=== PATIENT | female | born 1955 | race Caucasian/White ===

== ENCOUNTER → 2016-10-29 17:02 | Emergency (ER) | payer OTHER ==
[~2016-10-29 17:02] MED LIST: ALPR0.25 PO; ALPR1TAB3 PO; CALA180T PO; CEFU1TAB20 PO; CEPH-460 PO; CLIN1CAP6 PO; DABI150 PO; DOXY100C PO; FURO20TA PO; LANTUS2P SQ; LANTUSP SQ; LEVO175T2 PO; MAXZ PO; METF500T PO; MUPI2OIN TOPICAL; OMEP20TA PO; PRAD150C PO; PRAV20 PO; PRAV20TA2 PO; ST J81CH PO; TRIA1TAB5 PO
== END | disposition left against medical advice (07) ==
LOC: NED 17:02
DX: Z03.89 Encounter for observation for other suspected diseases and conditions ruled out (principal)
CPT/HCPCS: 99281

== ENCOUNTER 2016-10-29 17:36 | Inpatient (IN) | payer OTHER ==
[~2016-10-29] VITALS: Ht 165.1 cm; Wt 99.4 kg
[~2016-10-29 17:36] MED LIST changes: -ALPR1TAB3 PO; -CEFU1TAB20 PO; -CEPH-460 PO; -DOXY100C PO; -FURO20TA PO; -LANTUS2P SQ; -METF500T PO; -MUPI2OIN TOPICAL; -OMEP20TA PO; -PRAD150C PO; -PRAV20TA2 PO; -TRIA1TAB5 PO
[2016-10-29 17:42] VITALS: BP 165/76; PULSE 73; RESP 16; TEMP 99; O2SAT 98
[2016-10-29] MEDS ORDERED: SODIUM CHLORIDE 0.9% FLUSH 5 ML FLUSH IVF PRN (18:15)
[2016-10-29] MEDS ORDERED: VANCOMYCIN INJ 1,400 MG in SODIUM CHLORID 0.9% 500 ML INJ 500 ML IV ONE (18:15)
[2016-10-29] MEDS ORDERED: FURO20TA PO (18:24)
[2016-10-29] MEDS ORDERED: ALPR1TAB3 PO (18:24)
[2016-10-29] MEDS ORDERED: LEVO175T2 PO (18:24)
[2016-10-29] MEDS ORDERED: TRIA1TAB5 PO (18:24)
[2016-10-29] MEDS ORDERED: METF500T PO (18:24)
[2016-10-29] MEDS ORDERED: PRAD150C PO (18:24)
[2016-10-29] MEDS ORDERED: PRAV20TA2 PO (18:24)
[2016-10-29] MEDS ORDERED: CEPH-460 PO (18:24)
[2016-10-29] MEDS ORDERED: OMEP20TA PO (18:24)
[2016-10-29] MEDS ORDERED: LANTUS2P SQ (18:24)
--- NOTE | 2016-10-29 18:26 | PD ---
HPI Chief Complaint: Skin Problem Time Seen by Provider: 17:57 Travel History International Travel<30 days: No Contact w/Intl Traveler<30days: No Traveled to known affect area: No History of Present Illness HPI Patient is a 61-year-old female who was sent to the emergency room by her research nurse, Dr. Mariposa Julio for admission to the hospital. Patient reports that she is a diabetic, reports that she has been dealing with the right-sided diabetic foot ulcer for the past 6 months. Patient reports that foot ulcer is on her right plantar region, reports that the ulceration has decreased in size but has not closed up completely. She reports that she has noticed increased redness and warmth from her foot to her knee since Friday night. Reports that she just completed a course of antibiotics (bactrim) for her cellulitis when symptoms began. Patient reports that she was started on Keflex for this new infection and did see her research nurse, Dr. Mariposa Julio today and was sent to the emergency room for admission to the hospital for failed outpatient treatment of cellulitis as well as for further evaluation and workup of her foot ulceration. Reports concern for possible infection to the plantar surface of her foot. Patient reports that she was told to come to the emergency room as she will need to be admitted and have an MRI of her foot. Reports that she was told that Dr. Lorenz's partner, Dr. Waite will be seeing patient while inpatient. Patient at this time denies fevers or chills. Patient denies nausea or vomiting. Patient is currently on Keflex for the lightest of her right foot as well as lower leg. Reports that tetanus is up-to-date. PFSH Past Medical History Hx Anticoagulant Therapy: Yes (PRADAXA) Atrial Fibrillation: Yes (AFIB/AFLUTTER) Blood Disorders: No Anxiety: Yes Depression: Yes Heart Rhythm Problems: Yes Cancer: No Cardiac Catheterization: Yes Cardiovascular Problems: Yes (HTN; TRIPLE BYPASS) High Cholesterol: Yes Chest Pain: Yes Congestive Heart Failure: No Cerebrovascular Accident: Yes (TIA 2015) Coronary Artery Disease: Yes Diabetes: Yes (TYPE 2 ) Diminished Hearing: No Endocrine: Yes Gastrointestinal Disorders: No GERD: Yes Glaucoma: Yes (PRE-GLAUCOMA) Genitourinary: Yes (UTI) Herniated Disk: Yes Hypertension: Yes Immune Disorder: No Implanted Vascular Access Dvce: No Musculoskeletal: Yes Neurologic: Yes (tiny brain tumor - benign,DIABETIC NEUROPATHY IN FEET) Psychiatric: Yes Reproductive: No Respiratory: No Immunizations Current: Yes Pneumonia: Yes Sleep Apnea: Yes (NO CPAP) Thyroid Disease: Yes (HYPOTHYROIDISM) Triglycerides - High: Yes Ulcer: Yes (DUODENAL A TEENAGER) Menopausal: Yes : 2 Para: 2 Past Surgical History Abdominal Surgery: Yes (UMBILICAL HERNIA REPAIR) Cardiac Surgery: Yes (CABG x 3: AGE 52) Coronary Artery Bypass Graft: Yes (TRIPLE BYPASS) Gynecologic Surgery: Yes (HYSTERECTOMY) Hysterectomy: Yes Tonsillectomy: Yes Other Surgery: Yes (HYSTERECTOMY.) Family History Family History: Negative Social History Alcohol Use: No Tobacco Use: No (QUIT: AGE 52) Substance Use: Yes (MARIJUANA "ONCE IN AWHILE") Allergies-Medications (Allergen,Severity, Reaction): Coded Allergies: Codeine (Verified Allergy, Mild, Nausea/Vomiting, 10/29/16) "I BREAK OUT IN A SWEAT AND VOMITING" Lortab (Verified Allergy, Mild, DIAPHORESIS AND NAUSEA, 10/29/16) TOLERATES PERCOCOT WELL Uncoded Allergies: melon (Allergy, Severe, Anaphylaxis, 10/29/16) Reported Meds & Prescriptions Reported Meds & Active Scripts Active Reported Furosemide 20 Mg Tab 20 Mg PO DAILY Pravastatin 20 Mg Tab 20 Mg PO HS Omeprazole 20 Mg Tab 20 Mg PO BID Triamterene-Hydrochlorothiazide 75-50 Mg Tab 1 Tab PO DAILY Pradaxa (Dabigatran) 150 Mg Cap 150 Mg PO BID Keflex (Cephalexin) 500 Mg Cap 500 Mg PO Q6H Metformin (Metformin HCl) 500 Mg Tab 500 Mg PO DAILY With a meal Lantus Inj (Insulin Glargine) 1,000 Unit/10 Ml Vial 68 Units SQ HS Alprazolam 1 Mg Tab 1 Mg PO Q6H PRN Levothyroxine (Levothyroxine Sodium) 175 Mcg Tab 175 Mcg PO DAILY Review of Systems General / Constitutional: No: Fever, Chills Eyes: No: Visual changes HENT: No: Headaches Cardiovascular: No: Chest Pain or Discomfort Respiratory: No: Shortness of Breath Gastrointestinal: No: Abdominal Pain Genitourinary: No: Dysuria Musculoskeletal: No: Pain Skin: Positive Rash (ulceration and cellulitis of right foot) Neurologic: No: Weakness Psychiatric: No: Depression Endocrine: No: Polydipsia Hematologic/Lymphatic: No: Easy Bruising Physical Exam Narrative GENERAL: No acute distress, nontoxic SKIN: Warm and dry. HEAD: Atraumatic. Normocephalic. EYES: Pupils equal and round. No scleral icterus. No injection or drainage. ENT: No nasal bleeding or discharge. Mucous membranes pink and moist. NECK: Trachea midline. No JVD. CARDIOVASCULAR: Regular rate and rhythm. No murmur appreciated. RESPIRATORY: No accessory muscle use. Clear to auscultation. Breath sounds equal bilaterally. GASTROINTESTINAL: Abdomen soft, non-tender, nondistended. Hepatic and splenic margins not palpable. MUSCULOSKELETAL: No obvious deformities. No clubbing. No cyanosis. Right lower extremity: Patient with pinpoint ulceration to her right plantar surface of foot. No drainage to area of ulceration. Patient with cellulitis to entire right foot with blotchy erythema and streaking up her leg. Pulses intact, neurovascularly intact. NEUROLOGICAL: Awake and alert. No obvious cranial nerve deficits. Motor grossly within normal limits. Normal speech. PSYCHIATRIC: Appropriate mood and affect; insight and judgment normal. Data Data Last Documented VS Vital Signs Date Time Temp Pulse Resp B/P Pulse Ox O2 Delivery O2 Flow Rate FiO2 10/29/16 17:42 99.0 73 16 165/76 98 Orders Complete Blood Count With Diff (10/29/16 18:07) Comprehensive Metabolic Panel (10/29/16 18:07) Prothrombin Time / Inr (Pt) (10/29/16 18:07) Act Partial Throm Time (Ptt) (10/29/16 18:07) Blood Culture (10/29/16 18:07) Iv Access Insert/Monitor (10/29/16 18:07) Sodium Chloride 0.9% Flush (Ns Flush) (10/29/16 18:15) Vancomycin Inj (Vancomycin Inj) (10/29/16 18:15) Foot, Complete ([id number]) (10/29/16 ) Ceftriaxone Inj (Rocephin Inj) (10/29/16 19:15) Labs Laboratory Tests Test 10/29/16 18:35 White Blood Count 8.0 TH/MM3 Red Blood Count 5.41 MIL/MM3 Hemoglobin 14.3 GM/DL Hematocrit 43.0 % Mean Corpuscular Volume 79.3 FL Mean Corpuscular Hemoglobin 26.4 PG Mean Corpuscular Hemoglobin 33.2 % Concent Red Cell Distribution Width 12.7 % Platelet Count 284 TH/MM3 Mean Platelet Volume 9.7 FL Neutrophils (%) (Auto) 63.5 % Lymphocytes (%) (Auto) 28.4 % Monocytes (%) (Auto) 5.4 % Eosinophils (%) (Auto) 1.9 % Basophils (%) (Auto) 0.8 % Neutrophils # (Auto) 5.0 TH/MM3 Lymphocytes # (Auto) 2.3 TH/MM3 Monocytes # (Auto) 0.4 TH/MM3 Eosinophils # (Auto) 0.2 TH/MM3 Basophils # (Auto) 0.1 TH/MM3 CBC Comment DIFF FINAL Differential Comment Prothrombin Time 11.0 SEC Prothromb Time International 1.0 RATIO Ratio Activated Partial 36.2 SEC Thromboplast Time Sodium Level 135 MEQ/L Potassium Level 3.2 MEQ/L Chloride Level 93 MEQ/L Carbon Dioxide Level 33.0 MEQ/L Anion Gap 9 MEQ/L Blood Urea Nitrogen 24 MG/DL Creatinine 1.40 MG/DL Estimat Glomerular Filtration 38 ML/MIN Rate Random Glucose 323 MG/DL Calcium Level 9.2 MG/DL Total Bilirubin 0.5 MG/DL Aspartate Amino Transf 21 U/L (AST/SGOT) Alanine Aminotransferase 30 U/L (ALT/SGPT) Alkaline Phosphatase 114 U/L Total Protein 7.8 GM/DL Albumin 3.3 GM/DL [facility] Medical Decision Making Medical Screen Exam Complete: Yes Emergency Medical Condition: Yes Interpretation(s) Vital Signs Date Time Temp Pulse Resp B/P Pulse Ox O2 Delivery O2 Flow Rate FiO2 10/29/16 17:42 99.0 73 16 165/76 98 Differential Diagnosis Osteomyelitis of the right foot, cellulitis, diabetic foot ulceration, Narrative Course Patient is a 61-year-old female who presents to emergency room with complaints of nonhealing diabetic foot ulceration to her right foot with cellulitis and streaking up her right leg. Symptoms have been ongoing for the past 6 months, reports that she has been on multiple antibiotics and has been nonweightbearing but reports no relief of symptoms at this time. Patient was sent to the emergency room by her research nurse for admission to the hospital for treatment of ulceration with cellulitis which has failed outpatient treatment. Ultimately, patient will be seen by Dr. Waite, 's partner and patient will need to be worked up for possible osteomyelitis of her right foot. CBC, BMP, foot ordered for further evaluation of symptoms. I did give patient a dose of IV antibiotics, plan to admission under [facility] CBC & BMP Diagram 10/29/16 18:35 xray of foot with 2 questionable lucencies in the first metatarsal shaft. Area of bony destruction cannot be ruled out Call made to Dr. Waite with podiatry as well as [place] for admission case reviewed with Dr Cross who accepts pt to service under Dr Navarro Diagnosis Primary Impression: Cellulitis of right lower extremity Additional Impression: Osteomyelitis Qualified Code: M86.171 - Acute osteomyelitis of right foot Admitting Information Admitting Physician Requests: Admit Alfreda Brennan DO Oct 29, 2016 18:26
[2016-10-29 18:49] LABS: BASOPHIL # 0.1 TH/MM3 (0-0.2); BASOPHIL % 0.8 % (0.0-2.0); EOSINOPHIL # 0.2 TH/MM3 (0-0.4); EOSINOPHIL % 1.9 % (0.0-4.0); HEMO FLAGS DIFF FINAL; LYMPH % 28.4 % (9.0-44.0); LYMPHOCYTE # 2.3 TH/MM3 (1.0-4.8); MEAN CELL VOLUME 79.3 FL (80.0-100.0); MEAN CORPUSCULAR HEMOGLOBIN 26.4 PG (27.0-34.0); MEAN CORPUSCULAR HGB CONC 33.2 % (32.0-36.0); MONO % 5.4 % (0.0-8.0); NEUT % 63.5 % (16.0-70.0); PLATELET COUNT 284 TH/MM3 (150-450); RED BLOOD COUNT 5.41 MIL/MM3 (4.00-5.30); RED CELL DISTRIBUTION WIDTH 12.7 % (11.6-17.2)
[2016-10-29 18:56] LABS: CHLORIDE 93 MEQ/L (98-107); POTASSIUM 3.2 MEQ/L (3.5-5.1); SODIUM (NA) 135 MEQ/L (136-145)
[2016-10-29 19:00] LABS: ANION GAP 9 MEQ/L (5-15)
[2016-10-29 19:01] LABS: APTT (PATIENT) 36.2 SEC (24.3-30.1); BLOOD UREA NITROGEN 24 MG/DL (7-18)
--- NOTE | 2016-10-29 19:02 | RADHPO ---
EXAM DATE/TIME: 10/29/2016 18:16 [facility] COMPARISON: No previous studies available for comparison. INDICATIONS: Right foot pain, swelling, and redness. MEDICAL HISTORY: Hypothyroidism. Hypertension. Gastroesophageal reflux disease. Glaucoma. Brain tumor. Diabetic neurop athy. TIA. Coronary artery disease. Anticoagulant therapy. Atrial fibrillation. Ulcer. Type 2 diabete s. Chronic back pain. SURGICAL HISTORY: CABG Hysterectomy. Cardiac catheterization. Umbilical hernia repair. Lumbar discectomy. ENCOUNTER: Initial ACUITY: 2 days PAIN SCORE: 7/10 LOCATION: Right dorsal foot. FINDINGS: There is a hallux valgus deformity. There is a focal lucency seen in the mid first metatarsal shaft m easuring 0.9 cm in greatest dimension. This appears to have a fairly narrow zone of transition. The re is also a more subtle lucency seen at the proximal medial aspect of the first metatarsal. Periost eal reaction is not clearly seen. The patient does have chronic hypertrophic change at the dorsal as pect of the mid foot. Calcaneal spurs are seen at the Achilles and plantar aponeurosis attachment si nella. There is soft tissue swelling seen throughout the foot. CONCLUSION: 1. Two questionable lucencies in the first metatarsal shaft. Areas of bony destruction cannot be ru led out. 2. Prominent soft tissue swelling throughout the foot. 3. Chronic hypertrophic change at the dorsal mid foot, at the posterior calcaneus and a hallux valgu s deformity present. Woody Herr MD on October 29, 2016 at 18:36 Board Certified Radiologist. This report was verified electronically.
[2016-10-29 19:03] LABS: ALT (GPT) 30 U/L (10-53); AST (GOT) 21 U/L (15-37)
[2016-10-29 19:04] LABS: GLOMERULAR FILTRATION RATE 38 ML/MIN (>89)
[2016-10-29 19:05] LABS: TOTAL BILIRUBIN ADULT 0.5 MG/DL (0.2-1.0)
[2016-10-29 19:06] LABS: ALKALINE PHOSPHATASE 114 U/L (45-117)
[2016-10-29] MEDS ORDERED: cefTRIAXone INJ 2,000 MG in SODIUM CHLORIDE 0.9% INJ 100 ML IV ONE (19:15)
[2016-10-29 19:20] VITALS: BP 143/72; PULSE 88; RESP 18; O2SAT 99
[2016-10-29] MEDS ORDERED: ACETAMINOPHEN 325 MG TAB PO PRN (20:30)
[2016-10-29] MEDS ORDERED: ONDANSETRON HCL 4 MG/2 ML VIAL IVP PRN (20:30)
[2016-10-29] MEDS ORDERED: BISACODYL 10 MG SUPP PR PRN (20:30)
[2016-10-29] MEDS ORDERED: SODIUM CHLORIDE 0.9% FLUSH 5 ML FLUSH FLUSH PRN (20:30)
[2016-10-29] MEDS ORDERED: VANCOMYCIN INJ 1,000 MG in SODIUM CHLOR 0.9% 250 ML INJ 250 ML IV SCH (20:30)
[2016-10-29] MEDS ORDERED: NALOXONE HCL 0.4 MG/ML AMP IV PRN (20:30)
[2016-10-29] MEDS ORDERED: MAGNESIUM HYDROXIDE SUSP 30 ML CUP PO PRN (20:30)
[2016-10-29] MEDS ORDERED: SENNOSIDES 8.6 MG TAB PO PRN (20:30)
[2016-10-29] MEDS ORDERED: HEPARIN SODIUM - SQ 10,000 UNITS/ML VIAL SQ SCH (20:30)
[2016-10-29] MEDS ORDERED: Vancomycin Consult Pharmacy 1 EA OTHER SCH (21:00)
[2016-10-29] MEDS: SODIUM CHLORIDE 0.9% FLUSH 5 ML FLUSH FLUSH SCH (21:00)
[2016-10-29] MEDS: INSULIN DETEMIR 100 UNITS/ML VIAL SQ SCH (21:08)
[2016-10-29] MEDS: PANTOPRAZOLE SOD 20 MG DELAYED RELEASE TAB PO SCH (21:08)
[2016-10-29 21:15] VITALS: BP 146/72; PULSE 78; RESP 16; O2SAT 99
[2016-10-29] MEDS: DABIGATRAN ETEXILATE 150 MG CAP PO SCH (21:26)
[2016-10-29] MEDS: PRAVASTATIN SOD 20 MG TAB PO SCH (21:26)
[2016-10-29] MEDS: INSULIN ASPART SUPPLEMENTAL SCALE SQ SCH (21:27)
[2016-10-29] MEDS: CEFEPIME INJ 1,000 MG in SODIUM CHLORIDE 0.9% INJ 100 ML IV SCH (23:03)
[2016-10-29 23:45] VITALS: BP 151/79; PULSE 67; RESP 20; TEMP 97.6; O2SAT 98
[2016-10-30] MEDS: ALPRAZolam 1 MG TAB PO PRN ×2 (00:33→21:54)
[2016-10-30 05:37] LABS: AUTOMATED NEUTROPHIL # 3.8 TH/MM3 (1.8-7.7); BASOPHIL # 0.1 TH/MM3 (0-0.2); BASOPHIL % 0.7 % (0.0-2.0); EOSINOPHIL # 0.2 TH/MM3 (0-0.4); EOSINOPHIL % 2.8 % (0.0-4.0); HEMATOCRIT 39.5 % (35.0-46.0); HEMO FLAGS DIFF FINAL; LYMPH % 37.1 % (9.0-44.0); LYMPHOCYTE # 2.7 TH/MM3 (1.0-4.8); MEAN CORPUSCULAR HGB CONC 33.3 % (32.0-36.0); MONO % 6.7 % (0.0-8.0); NEUT % 52.7 % (16.0-70.0); PLATELET COUNT 251 TH/MM3 (150-450); RED BLOOD COUNT 4.87 MIL/MM3 (4.00-5.30); WHITE BLOOD COUNT 7.3 TH/MM3 (4.0-11.0)
[2016-10-30 06:24] LABS: BICARBONATE 33.4 MEQ/L (21.0-32.0)
[2016-10-30] MEDS: LEVOTHYROXINE SODIUM 75 MCG TAB PO SCH (06:51)
[2016-10-30] MEDS: LEVOTHYROXINE SODIUM 100 MCG TAB PO SCH (06:51)
[2016-10-30] MEDS: INSULIN ASPART SUPPLEMENTAL SCALE SQ SCH ×4 (06:54→21:41)
[2016-10-30 07:07] LABS: POTASSIUM 2.5 MEQ/L (3.5-5.1)
[2016-10-30 08:00] VITALS: BP 112/69; PULSE 69; RESP 17; TEMP 97.4; O2SAT 96
[2016-10-30] MEDS: CEFEPIME INJ 1,000 MG in SODIUM CHLORIDE 0.9% INJ 100 ML IV SCH ×2 (08:21→21:34)
[2016-10-30] MEDS: SODIUM CHLORIDE 0.9% FLUSH 5 ML FLUSH FLUSH SCH ×2 (08:21→21:33)
[2016-10-30] MEDS: PANTOPRAZOLE SOD 20 MG DELAYED RELEASE TAB PO SCH ×2 (08:22→21:37)
[2016-10-30] MEDS: DABIGATRAN ETEXILATE 150 MG CAP PO SCH ×2 (08:22→21:35)
[2016-10-30] MEDS: TRIAMTERENE/HCTZ 37.5 MG/25 MG TAB PO SCH (08:23)
[2016-10-30] MEDS: POTASSIUM CHLOR 20 MEQ PREMIX 100 ML IV SCH ×4 (08:23→17:07)
[2016-10-30] MEDS: FUROSEMIDE 20 MG TAB PO SCH (08:23)
[2016-10-30] MEDS ORDERED: TRIAMTERENE/HCTZ 75 MG/50 MG TAB PO SCH (09:00)
[2016-10-30 12:00] VITALS: BP 110/75; PULSE 71; RESP 18; TEMP 97.2; O2SAT 95
--- NOTE | 2016-10-30 12:31 | MH ---
cc: EDUARDO ALVAREZ MD DATE OF ADMISSION: 10/29/2016 CHIEF COMPLAINT Redness of the right lower extremity and foot. HISTORY OF PRESENT ILLNESS This is a 61-year female with past medical and surgical history significant for atrial fibrillation on anticoagulation, anxiety, depression, hypertension, triple bypass surgery, hyperlipidemia, TIA, coronary artery disease status post three-vessel bypass surgery, diabetes mellitus type 2, history of GERD, history of pre glaucoma, history of herniated disc, history of hypertension, history of diabetic neuropathy, history of tiny brain tumor which was benign, history of hypothyroidism, history of duodenal ulcer in the past, history of umbilical hernia repair, three-vessel bypass surgery, hysterectomy and tonsillectomy, who came to the ER at [facility] complaining of redness of the left lower extremity as well as the foot area. She has seen a medicaid eligibility specialist, Dr. Tramaine Julio. She reports that she is diabetic and she has been dealing with right-sided diabetic foot ulcer for the past 6 months. The patient reports that the foot ulcer is on her right plantar region, reports that the ulceration is decreased in size but has not closed up completely. She reports that she has noticed increased redness and warmth from her foot to her knees since Friday night. She reports that she has was started on Keflex but this is not improving and she failed outpatient therapy for cellulitis of the right foot and right lower leg. She also needs elevation and workup of her foot ulceration, concern of possible infection. She is being admitted to have an MRI of the foot. Denies any fever or chills. Denies any nausea or vomiting, diarrhea, constipation. Denies any black stool or blood in the stool. Other than that nothing significant. PAST MEDICAL/SURGICAL HISTORY As dictated above. SOCIAL HISTORY She smoked about 10 years, one pack a day, quit 9 years ago. Denies alcohol abuse. Marijuana off and on. FAMILY HISTORY Nothing significant. ALLERGIES 1. CODEINE. 2. LORTAB. MEDICATIONS 1. Furosemide 20 mg p.o. daily. 2. Pravastatin 20 mg p.o. h.s. 3. Omeprazole 20 mg p.o. b.i.d. 4. Triamterene/hydrochlorothiazide 75/50, one p.o. daily. 5. Pradaxa 150 mg twice a day. 6. Metformin 500 mg p.o. daily. 7. Lantus 68 units subcutaneous h.s. 8. Alprazolam 1 mg p.o. q.6h. 9. Levothyroxine 175 mcg p.o. daily. REVIEW OF SYSTEMS Positive for ulceration and cellulitis of the right foot, feeling weak and tired. All other review of systems is negative. PHYSICAL EXAMINATION GENERAL: This is a 61-year-old female lying on the bed, not in acute distress. VITAL SIGNS: Temperature 97.4, heart rate 69, respirations 17, blood pressure 112/69. O2 saturation 96% on room air. HEENT: Normocephalic, atraumatic. EOMI. PERRL. Oral mucosa moist. NECK: Supple. CARDIOVASCULAR: Regular rate and rhythm. LUNGS: Clear to auscultation bilaterally. ABDOMEN: Soft, nontender. Bowel sounds audible. EXTREMITIES: No cyanosis. No clubbing. There is a pinpoint ulceration to the right plantar surface of the foot. No drainage of the ulceration. Erythema of the right foot as well as blotchy erythema on the upper legs which is improving by demarcation. SKIN: Erythema of the right lower extremity plus the right foot with foot ulceration. The right lower extremity erythromycin is improving. NEUROLOGIC: Awake, alert, oriented x4. No focal deficits. PSYCHIATRIC: The patient is cooperative. Mood and affect are normal. LABORATORY CBC is unremarkable except for RBC count was 5.41, now 4.87 which is normal. BMP is unremarkable except for potassium 2.5 low, BUN was 24 now 22, creatinine was 1.40, now 1.10, glucose random was 323, now 213, magnesium level 1.9, albumin 3.3 low. PT 11.0, INR 1.0, APTT 36.2. Blood cultures x2 done show no growth. IMAGING Foot x-ray was done and shows two questionable lucencies in the first metatarsal shaft area. Areas of bony destruction cannot be ruled out. Prominent soft tissue swelling throughout the foot. Chronic hypertrophic changes at the dorsal midfoot and at the posterior calcaneus and a hallux valgus deformity present. ASSESSMENT AND PLAN 1. This is a 61-year-old female who came to the ER diagnosed with cellulitis of the right foot with foot ulceration. The patient is on vancomycin IV and she got IV Rocephin. The patient is also on antibiotic cefepime one gram IV q.12h. Podiatry is consulted already. I will consult the infectious disease doctor. Check MRA of the right foot. Further recommendations per patient's progress. 2. Diabetes mellitus. ADA 1800 calorie diet. NovoLog low-dose sliding scale. Check blood sugars at h.s. Continue the home medication. 3. Hypokalemia. Will replace potassium. Magnesium level was normal. 4. History of hyperlipidemia. Continue with pravastatin 20 mg p.o. daily. 5. History of GERD. Protonix 40 mg p.o. daily. 6. History of atrial fibrillation. The patient is on Pradaxa 150 mg twice a day. 7. History of anxiety. Continue with Xanax 1 mg p.o. q.6h. p.r.n. anxiety. 8. History of hypothyroidism. Continue with levothyroxine 175 mcg p.o. daily. 9. DVT prophylaxis. The patient is on Pradaxa. 10. GI prophylaxis. Protonix 40 mg p.o. daily. 11.We are going to manage the patient on a daily basis and make recommendations on a daily basis. Eduardo Alvarez MD [facility]/[place] /11:19 AM /11:56 AM
[2016-10-30] MEDS ORDERED: GADODIAMIDE PF 287 MG/ML 20 ML VIAL (for RAD MRI) IV ONE (16:00)
--- NOTE | 2016-10-30 16:53 | RADHPO ---
EXAM DATE/TIME: 10/30/2016 15:53 [facility] COMPARISON: No previous studies available for comparison. INDICATIONS : Osteomyelitis. Cellulitis. CONTRAST: 19 cc Omniscan (gadodiamide) IV MEDICAL HISTORY : Hypertension. Diabetes. A-fib. TIA. SURGICAL HISTORY : CABG Umbilical hernia repair. Tonsillectomy. Discectomy. ENCOUNTER: Subsequent ACUITY: 3 day PAIN SCORE: 5/10 LOCATION: Right foot TECHNIQUE: Multiplanar, multisequence MRI examination was performed without contrast and after the intravenous a dministration of gadolinium. FINDINGS: No marrow edema or marrow enhancement is identified to suggest osteomyelitis. There is a hallux valgu s deformity. Moderate osteoarthritis present at the first metatarsophalangeal joint. There is edemato us changes in the soft tissues of the foot, especially at the dorsum of the foot characteristic of a mild cellulitis. No abnormal enhancing fluid collection seen to suggest abscess. Plantar fascial and Achilles insertions appear intact. There is some thickening of the distal Achilles tendon. CONCLUSION: 1. No evidence for osteomyelitis. 2. Cellulitis predominantly on the dorsum of the foot. No discrete abscess. 3. Hallux valgus deformity with osteoarthritis in the right foot is at the first MTP. Luiz Kumar MD on October 30, 2016 at 16:44 Board Certified Radiologist. This report was verified electronically.
[2016-10-30] MEDS: VANCOMYCIN INJ 1,700 MG in SODIUM CHLORID 0.9% 500 ML INJ 500 ML IV SCH (17:01)
--- NOTE | 2016-10-30 19:41 | MB ---
cc: KAREN WOO DATE OF CONSULTATION: 10/30/2016 CHIEF COMPLAINT Right foot ulceration and cellulitis. HISTORY OF PRESENT ILLNESS Ms. Gaspar is a 61-year-old female patient well-known to my associate Dr. Tramaine Julio. Dr. Julio is away and asked me to see this patient in her absence, but she is the one who stressed that the patient go into the emergency department for evaluation. The patient has had a right sub met 1 diabetic foot ulcer for six months. One month ago she had a cellulitic infection which was treated with oral antibiotics but again had another flare approximately four days ago. Her primary care doctor prescribed Keflex and after two days of Keflex she saw no improvement and that is when she was directed to come into the emergency department for MRI and further workup. The patient denies any nausea, vomiting, fever, headaches or chills at this time. PAST MEDICAL HISTORY 1. Hyperlipidemia. 2. Hypertension. 3. Depression. 4. Anxiety. 5. TIA. 6. Coronary artery disease. 7. Diabetes mellitus. 8. History of GERD. 9. History of glaucoma. 10. Herniated disc. 11. History of tiny brain tumor which was benign. 12. History of hypothyroidism. 13. Duodenal abscess. PAST SURGICAL HISTORY 1. Hysterectomy. 2. Tonsillectomy. 3. Three-vessel bypass repair surgery. 4. Hernia surgery. SOCIAL HISTORY The patient smoked about ten years one pack a day, quit nine years ago. Denies alcohol or drug abuse. Lives at home with family. FAMILY HISTORY Noncontributory. ALLERGIES CODEINE, LORTAB. MEDICATIONS Please see list. VITAL SIGNS Temperature is 97.2 with a T-max of 99, pulse rate 71, respiratory rate 18, blood pressure 110/75, pulse oximetry 95% O2 on room air. LABORATORY DATA White count is 7.3 down from 8.0, hemoglobin 13.1, hematocrit 39.5, platelets 251. INR 1.0. Sodium 138, potassium 2.5, chloride 98, carbon dioxide 33.4, BUN 22, glucose 213. Blood cultures are negative x1 day. IMAGING X-rays are negative for any gas. No soft tissue or cortical erosion. MRI is negative for any signs of osteomyelitis. PHYSICAL EXAMINATION The patient has diminished but palpable pulses. Cap fill time less than 3 seconds. Gross sensation is severely diminished. There is some trace erythema to the dorsal aspect of the foot and medial ankle but mostly resolved. There is a sub met 1 ulcer 0.5 x 0.5 x 0, no deep probing, hypertrophic borders, no active drainage, no malodor. ASSESSMENT AND PLAN 1. Right foot stage 2 ulceration with resolving cellulitis. - The patient failed outpatient antibiotic therapy however it was only two days of Keflex. - Infectious Disease has been consulted and will evaluate the patient. I will defer to them for any antibiotic suggestions unfortunately though cultures are not obtained on this visit. - The patient does not require any surgical intervention at this time. I doubt that Infectious Disease will require a PICC line, however I will again defer to them. - The patient has spoken to Dr. Julio before about being non-weightbearing but has difficulty navigating crutches and lives in a mobile home so she feels she cannot use anything bulky. I will order a physical therapy evaluation for tomorrow to try crutches again. 6. Pending physical therapy evaluation and Infectious Disease recommendations, the patient is okay for discharge from my standpoint. Thank you very much for this consultation. Karen WILSON/BJ[facility] /6:54 PM /7:11 PM MTDJerrod
[2016-10-30 20:00] VITALS: BP 120/72; PULSE 54; RESP 20; TEMP 97.2; O2SAT 100
[2016-10-30] MEDS: PRAVASTATIN SOD 20 MG TAB PO SCH (21:37)
[2016-10-30] MEDS: INSULIN DETEMIR 100 UNITS/ML VIAL SQ SCH (21:39)
--- NOTE | 2016-10-30 21:43 | PD.CONS ---
History of Present Illness Service Infectious disease Consult Requested By Dr Navarro Reason for Consult RLE cellulitis Primary Care Physician Damien Hamilton DO Diagnoses: (1) Cellulitis of right lower extremity (2) Diabetes mellitus History of Present Illness Patient with known h/o Diabetes has a ulcer on plantar surface of rt toe for about 6 months and she has been following with Podiatry. Few weeks ago she had cellulitis involving right leg and came to ER and was given PO antibiotics and it resolved howver few days ago it started to flare up again and so was given Keflex but did not improve and so came to hospital and started on IV antibiotics - improved- had MRI today. Review of Systems Constitutional: DENIES: Fever, Chills Endocrine: DENIES: Polydipsia Eyes: DENIES: Blurred vision, Diplopia Ears, nose, mouth, throat: DENIES: Tinnitus, Hearing loss Respiratory: DENIES: Cough, Sputum production, Shortness of breath Cardiovascular: DENIES: Chest pain, Syncope Gastrointestinal: DENIES: Abdominal pain, Diarrhea Musculoskeletal: DENIES: Muscle aches, Joint Swelling Integumentary: COMPLAINS OF: Abnormal pigmentation, DENIES: Rash Hematologic/lymphatic: DENIES: Bruising Neurologic: COMPLAINS OF: Paresthesias, DENIES: Abnormal gait, Localized weakness Psychiatric: DENIES: Anxiety, Confusion Past Family Social History Allergies: Coded Allergies: Codeine (Verified Allergy, Mild, Nausea/Vomiting, 10/29/16) "I BREAK OUT IN A SWEAT AND VOMITING" Lortab (Verified Allergy, Mild, DIAPHORESIS AND NAUSEA, 10/29/16) TOLERATES PERCOCOT WELL Uncoded Allergies: melon (Allergy, Severe, Anaphylaxis, 10/29/16) Past Medical History Type 2 diabetes Hypertension Hyperlipidemia Neuropathy CAD Anxiety / Depression Past Surgical History Hysterectomy CABG Reported Medications IV Vancomycin and Cefepime Social History Ex smoker Occasional [place] use Physical Exam Vital Signs Vital Signs Date Time Temp Pulse Resp B/P Pulse Ox O2 Delivery O2 Flow Rate FiO2 10/30/16 20:00 97.2 54 20 120/72 100 Automatic Cuff 10/30/16 12:00 97.2 71 18 110/75 95 10/30/16 08:00 97.4 69 17 112/69 96 10/29/16 23:45 97.6 67 20 151/79 98 Physical Exam GENERAL: This is a chronically ill patient, in no apparent distress. SKIN: Right foot erythema on dorsal surface and some patchiness on leg. Small ulcer with callus on rt big toe HEAD: Atraumatic. Normocephalic. No temporal or scalp tenderness. EYES: Pupils equal round and reactive. Extraocular motions intact. No scleral icterus. No injection or drainage. ENT: Nose without bleeding, purulent drainage or septal hematoma. Throat without erythema, tonsillar hypertrophy or exudate. Uvula midline. Airway patent. NECK: Trachea midline. No JVD or lymphadenopathy. Supple, nontender, no meningeal signs. CARDIOVASCULAR: Regular rate and rhythm without murmurs, gallops, or rubs. RESPIRATORY: Clear to auscultation. Breath sounds equal bilaterally. No wheezes , rales, or rhonchi. GASTROINTESTINAL: Abdomen soft, non-tender, nondistended. No hepato-splenomegaly , or palpable masses. No guarding. MUSCULOSKELETAL: Extremities without clubbing, cyanosis, or edema. No joint tenderness, effusion, or edema noted. No calf tenderness. Negative Homans sign bilaterally. NEUROLOGICAL: Awake and alert. Cranial nerves II through XII intact. Motor grossly within normal limits. Five out of 5 muscle strength in all muscle groups. Normal speech.Peripheral neuropathy Laboratory Laboratory Tests Test 10/30/16 10/30/16 04:40 05:40 White Blood Count 7.3 Red Blood Count 4.87 Hemoglobin 13.1 Hematocrit 39.5 Mean Corpuscular Volume 81.0 Mean Corpuscular Hemoglobin 27.0 Mean Corpuscular Hemoglobin 33.3 Concent Red Cell Distribution Width 13.0 Platelet Count 251 Mean Platelet Volume 10.1 Neutrophils (%) (Auto) 52.7 Lymphocytes (%) (Auto) 37.1 Monocytes (%) (Auto) 6.7 Eosinophils (%) (Auto) 2.8 Basophils (%) (Auto) 0.7 Neutrophils # (Auto) 3.8 Lymphocytes # (Auto) 2.7 Monocytes # (Auto) 0.5 Eosinophils # (Auto) 0.2 Basophils # (Auto) 0.1 CBC Comment DIFF FINAL Differential Comment Sodium Level 138 Potassium Level 2.5 Chloride Level 98 Carbon Dioxide Level 33.4 Anion Gap 7 Blood Urea Nitrogen 22 Creatinine 1.10 Estimat Glomerular Filtration 51 Rate Random Glucose 213 Calcium Level 8.6 Magnesium Level 1.9 Date/Time Procedure Status Source Growth 10/29/16 18:40 Aerobic Blood Culture - Preliminary Resulted Blood Peripheral NO GROWTH IN 1 DAY 10/29/16 18:40 Anaerobic Blood Culture - Preliminary Resulted Blood Peripheral NO GROWTH IN 1 DAY Result Diagram: 10/30/1643910/30/16439 Assessment and Plan Problem List: (1) Cellulitis of right lower extremity Status: Acute Plan: Follow blood cultures MRI reviewed- No osteomyelitis Continue IV Vancomycin and Cefepime for another 24-48hrs and then can change to PO Cefuroxime and Doxy for 2 weeks (2) Diabetes mellitus Status: Chronic Problem Qualifiers (1) Diabetes mellitus: Nora Hastings MD Oct 30, 2016 21:43
[2016-10-30] MEDS: MUPIROCIN 2% OINT 22 GM TUBE TOPICAL SCH (21:54)
[2016-10-30] MEDS ORDERED: VANCOMYCIN INJ 1,250 MG in SODIUM CHLOR 0.9% 250 ML INJ 250 ML IV SCH (22:00)
[2016-10-31] VITALS: BP 126/61; PULSE 54; RESP 20; TEMP 96.9; O2SAT 98
[2016-10-31] MEDS: LEVOTHYROXINE SODIUM 75 MCG TAB PO SCH (05:00)
[2016-10-31] MEDS: LEVOTHYROXINE SODIUM 100 MCG TAB PO SCH (05:00)
[2016-10-31 05:26] VITALS: PULSE 59; RESP 16; TEMP 97.5; O2SAT 99
[2016-10-31 05:58] LABS: AUTOMATED NEUTROPHIL # 3.2 TH/MM3 (1.8-7.7); BASOPHIL # 0.1 TH/MM3 (0-0.2); BASOPHIL % 1.2 % (0.0-2.0); EOSINOPHIL # 0.2 TH/MM3 (0-0.4); EOSINOPHIL % 3.3 % (0.0-4.0); HEMATOCRIT 37.8 % (35.0-46.0); HEMO FLAGS DIFF FINAL; LYMPH % 37.5 % (9.0-44.0); LYMPHOCYTE # 2.3 TH/MM3 (1.0-4.8); MEAN CELL VOLUME 79.3 FL (80.0-100.0); MEAN CORPUSCULAR HEMOGLOBIN 26.8 PG (27.0-34.0); MEAN CORPUSCULAR HGB CONC 33.8 % (32.0-36.0); MONO % 6.3 % (0.0-8.0); NEUT % 51.7 % (16.0-70.0); PLATELET COUNT 237 TH/MM3 (150-450); RED BLOOD COUNT 4.77 MIL/MM3 (4.00-5.30); RED CELL DISTRIBUTION WIDTH 12.7 % (11.6-17.2); WHITE BLOOD COUNT 6.2 TH/MM3 (4.0-11.0)
[2016-10-31 06:07] LABS: CHLORIDE 101 MEQ/L (98-107); POTASSIUM 3.2 MEQ/L (3.5-5.1); SODIUM (NA) 139 MEQ/L (136-145)
[2016-10-31 06:16] LABS: ALT (GPT) 25 U/L (10-53); ANION GAP 8 MEQ/L (5-15); AST (GOT) 15 U/L (15-37); BICARBONATE 29.8 MEQ/L (21.0-32.0); BLOOD UREA NITROGEN 15 MG/DL (7-18); GLOMERULAR FILTRATION RATE 61 ML/MIN (>89); TOTAL BILIRUBIN ADULT 0.4 MG/DL (0.2-1.0)
[2016-10-31] MEDS: INSULIN ASPART SUPPLEMENTAL SCALE SQ SCH ×4 (06:37→20:46)
[2016-10-31 06:42] LABS: ALKALINE PHOSPHATASE 82 U/L (45-117)
--- NOTE | 2016-10-31 07:00 | HHI.PR ---
Subjective History of Present Illness Patient feel better right foot and lower extremity redness/ swelling and pain better d/w CHEKO [place] at bed side. MRI of right foot shows no osteomylitis.. Low Potassium will replace. Review of Systems Constitutional Constitutional: Fatigue, Weakness Integumentary Skin Remarks redness swelling and pain right lower extremity getting better. Vitals/Results Intake & Output 10/30/16 10/30/16 10/31/16 15:00 23:00 07:00 Intake Total 1160 ml Balance 1160 ml Intake Oral 960 ml IV Total 200 ml # Voids 2 1 # Bowel Movements 0 Vital Signs Vital Signs Date Time Temp Pulse Resp B/P Pulse Ox O2 Delivery O2 Flow Rate FiO2 10/31/16 00:00 96.9 54 20 126/61 98 Manual Cuff/Auscultation 10/30/16 20:00 97.2 54 20 120/72 100 Automatic Cuff 10/30/16 12:00 97.2 71 18 110/75 95 10/30/16 08:00 97.4 69 17 112/69 96 CBC/BMP: 10/31/16 0455 10/31/16 0455 Lab Results Laboratory Tests Test 10/31/16 04:55 White Blood Count 6.2 TH/MM3 Red Blood Count 4.77 MIL/MM3 Hemoglobin 12.8 GM/DL Hematocrit 37.8 % Mean Corpuscular Volume 79.3 FL Mean Corpuscular Hemoglobin 26.8 PG Mean Corpuscular Hemoglobin 33.8 % Concent Red Cell Distribution Width 12.7 % Platelet Count 237 TH/MM3 Mean Platelet Volume 9.9 FL Neutrophils (%) (Auto) 51.7 % Lymphocytes (%) (Auto) 37.5 % Monocytes (%) (Auto) 6.3 % Eosinophils (%) (Auto) 3.3 % Basophils (%) (Auto) 1.2 % Neutrophils # (Auto) 3.2 TH/MM3 Lymphocytes # (Auto) 2.3 TH/MM3 Monocytes # (Auto) 0.4 TH/MM3 Eosinophils # (Auto) 0.2 TH/MM3 Basophils # (Auto) 0.1 TH/MM3 CBC Comment DIFF FINAL Differential Comment Sodium Level 139 MEQ/L Potassium Level 3.2 MEQ/L Chloride Level 101 MEQ/L Carbon Dioxide Level 29.8 MEQ/L Anion Gap 8 MEQ/L Blood Urea Nitrogen 15 MG/DL Creatinine 0.94 MG/DL Estimat Glomerular Filtration 61 ML/MIN Rate Random Glucose 240 MG/DL Calcium Level 8.4 MG/DL Total Bilirubin 0.4 MG/DL Aspartate Amino Transf 15 U/L (AST/SGOT) Alanine Aminotransferase 25 U/L (ALT/SGPT) Alkaline Phosphatase 82 U/L Total Protein 6.0 GM/DL Albumin 2.5 GM/DL Physical Exam General General Appearance: Well Developed, Well Nourished, No Acute Distress, Comfortable Eyes Eye Exam: Pupils Equal, Pupils Reactive, Sclera White, Extraocular Movement Intact Throat Throat Exam: Oral Mucosa [place] & Moist, Oral Pharynx Normal Neck Neck Exam: Neck Supple, Trachea Midline Pulmonary Resp Exam: Clear Bilaterally, Breath Sounds Equal, No Distress Cardiology CV Exam: Regular, Normal Sinus Rhythm Gastrointestinal/Abdomen GI Exam: Soft, Non-Tender, Bowel Sounds Present Musculoskeletal MS Exam: Normal Tone Integumentary Skin Remarks Erythema /swelling and tenderness right lower extremity...improving. Extremeties Extremities Exam: No Edema Neurologic Neuro Exam: Alert, Awake, Oriented, Speech Clear, Moving All Extremities, No Focal Deficits Psychiatric Psych Exam: Appropriate Responses VTE Prophylaxis VTE Remarks Pradexa. PUD Prophylasis PUD Prophylaxis: Protonix Assessment/Plan Assessment/Plan ASSESSMENT AND PLAN 1. This is a 61-year-old female who came to the ER diagnosed with cellulitis of the right foot with foot ulceration. The patient is on vancomycin IV and she got IV Rocephin. The patient is also on antibiotic cefepime one gram IV q.12h. Podiatry input noted . infectious disease input noted. Check MRI of the right foot. ..shows no osteomylitis. Further recommendations per patient's progress. 2. Diabetes mellitus. ADA 1800 calorie diet. NovoLog low-dose sliding scale. Check blood sugars at h.s. Continue the home medication. 3. Hypokalemia. Will replace potassium. Magnesium level was normal. 4. History of hyperlipidemia. Continue with pravastatin 20 mg p.o. daily. 5. History of GERD. Protonix 40 mg p.o. daily. 6. History of atrial fibrillation. The patient is on Pradaxa 150 mg twice a day. 7. History of anxiety. Continue with Xanax 1 mg p.o. q.6h. p.r.n. anxiety. 8. History of hypothyroidism. Continue with levothyroxine 175 mcg p.o. daily. 9. DVT prophylaxis. The patient is on Pradaxa. 10. GI prophylaxis. Protonix 40 mg p.o. daily. 11.We are going to manage the patient on a daily basis and make recommendations on a daily basis. Discussed Condition with: Patient Eduardo Navarro MD Oct 31, 2016 07:00
[2016-10-31] MEDS ORDERED: POTASSIUM CHLORIDE 10 MEQ CONTROLLED RELEASE TAB PO ONE (07:15)
[2016-10-31 08:00] VITALS: BP 153/71; PULSE 58; RESP 18; TEMP 96.8; O2SAT 98
[2016-10-31] MEDS: PANTOPRAZOLE SOD 20 MG DELAYED RELEASE TAB PO SCH ×2 (08:42→20:42)
[2016-10-31] MEDS: FUROSEMIDE 20 MG TAB PO SCH (08:42)
[2016-10-31] MEDS: DABIGATRAN ETEXILATE 150 MG CAP PO SCH ×2 (08:42→20:42)
[2016-10-31] MEDS: CEFEPIME INJ 1,000 MG in SODIUM CHLORIDE 0.9% INJ 100 ML IV SCH ×2 (08:43→20:43)
[2016-10-31] MEDS: SODIUM CHLORIDE 0.9% FLUSH 5 ML FLUSH FLUSH SCH ×2 (08:44→20:42)
[2016-10-31] MEDS: MUPIROCIN 2% OINT 22 GM TUBE TOPICAL SCH ×2 (08:44→20:47)
[2016-10-31] MEDS: TRIAMTERENE/HCTZ 37.5 MG/25 MG TAB PO SCH (08:44)
[2016-10-31 12:00] VITALS: BP 139/78; PULSE 56; RESP 18; TEMP 97.2; O2SAT 100
[2016-10-31] MEDS: VANCOMYCIN INJ 1,700 MG in SODIUM CHLORID 0.9% 500 ML INJ 500 ML IV SCH (15:55)
[2016-10-31 16:00] VITALS: BP 140/72; PULSE 58; RESP 20; TEMP 97.2; O2SAT 100
[2016-10-31 20:00] VITALS: BP 149/65; PULSE 63; RESP 16; TEMP 97.6; O2SAT 98
[2016-10-31] MEDS: PRAVASTATIN SOD 20 MG TAB PO SCH (20:42)
[2016-10-31] MEDS: INSULIN DETEMIR 100 UNITS/ML VIAL SQ SCH (20:45)
[2016-10-31] MEDS: ALPRAZolam 1 MG TAB PO PRN (20:48)
[2016-11-01] VITALS: BP 124/62; PULSE 60; RESP 16; TEMP 97.8; O2SAT 96
[2016-11-01 04:00] VITALS: BP 125/64; PULSE 59; RESP 16; TEMP 97.5; O2SAT 99
[2016-11-01] MEDS: LEVOTHYROXINE SODIUM 100 MCG TAB PO SCH (05:18)
[2016-11-01] MEDS: LEVOTHYROXINE SODIUM 75 MCG TAB PO SCH (05:18)
[2016-11-01 05:52] LABS: AUTOMATED NEUTROPHIL # 4.9 TH/MM3 (1.8-7.7); BASOPHIL # 0.1 TH/MM3 (0-0.2); BASOPHIL % 1.2 % (0.0-2.0); EOSINOPHIL # 0.2 TH/MM3 (0-0.4); EOSINOPHIL % 2.4 % (0.0-4.0); HEMATOCRIT 41.7 % (35.0-46.0); HEMO FLAGS DIFF FINAL; LYMPH % 30.4 % (9.0-44.0); LYMPHOCYTE # 2.4 TH/MM3 (1.0-4.8); MEAN CORPUSCULAR HEMOGLOBIN 26.5 PG (27.0-34.0); MEAN CORPUSCULAR HGB CONC 33.5 % (32.0-36.0); MONO % 5.3 % (0.0-8.0); NEUT % 60.7 % (16.0-70.0); PLATELET COUNT 284 TH/MM3 (150-450); RED BLOOD COUNT 5.27 MIL/MM3 (4.00-5.30); RED CELL DISTRIBUTION WIDTH 12.6 % (11.6-17.2); WHITE BLOOD COUNT 8.1 TH/MM3 (4.0-11.0)
[2016-11-01 06:08] LABS: CHLORIDE 101 MEQ/L (98-107); POTASSIUM 3.8 MEQ/L (3.5-5.1); SODIUM (NA) 139 MEQ/L (136-145)
[2016-11-01 06:12] LABS: ANION GAP 7 MEQ/L (5-15); BICARBONATE 30.8 MEQ/L (21.0-32.0); BLOOD UREA NITROGEN 14 MG/DL (7-18)
[2016-11-01 06:15] LABS: ALT (GPT) 27 U/L (10-53); AST (GOT) 14 U/L (15-37); GLOMERULAR FILTRATION RATE 65 ML/MIN (>89)
[2016-11-01 06:17] LABS: TOTAL BILIRUBIN ADULT 0.3 MG/DL (0.2-1.0)
[2016-11-01 06:18] LABS: ALKALINE PHOSPHATASE 92 U/L (45-117)
[2016-11-01] MEDS: INSULIN ASPART SUPPLEMENTAL SCALE SQ SCH ×4 (06:18→21:23)
[2016-11-01 08:00] VITALS: BP 100/82; PULSE 56; RESP 16; TEMP 97; O2SAT 95
--- NOTE | 2016-11-01 08:21 | HHI.PR ---
Subjective History of Present Illness Patient feel better right foot and lower extremity redness/ swelling and pain much better d/w CHEKO Paritda at bed side. MRI of right foot shows no osteomylitis.. Low Potassium resolved.... constipation start colace. Review of Systems Constitutional Constitutional: Fatigue, Weakness Integumentary Skin Remarks redness swelling and pain right lower extremity getting better. Vitals/Results Intake & Output 10/31/16 10/31/16 11/01/16 15:00 23:00 07:00 Intake Total 1050 ml 1480 ml 600 ml Balance 1050 ml 1480 ml 600 ml Intake Oral 1050 ml 1480 ml 600 ml # Voids 4 4 3 # Bowel Movements 0 0 0 Vital Signs Vital Signs Date Time Temp Pulse Resp B/P Pulse Ox O2 Delivery O2 Flow Rate FiO2 11/01/16 04:00 97.5 59 16 125/64 99 11/01/16 00:00 97.8 60 16 124/62 96 10/31/16 20:00 97.6 63 16 149/65 98 10/31/16 16:00 97.2 58 20 140/72 100 10/31/16 12:00 97.2 56 18 139/78 100 CBC/BMP: 11/01/16 0517 11/01/16 0517 Lab Results Laboratory Tests Test 11/01/16 05:17 White Blood Count 8.1 TH/MM3 Red Blood Count 5.27 MIL/MM3 Hemoglobin 14.0 GM/DL Hematocrit 41.7 % Mean Corpuscular Volume 79.0 FL Mean Corpuscular Hemoglobin 26.5 PG Mean Corpuscular Hemoglobin 33.5 % Concent Red Cell Distribution Width 12.6 % Platelet Count 284 TH/MM3 Mean Platelet Volume 9.7 FL Neutrophils (%) (Auto) 60.7 % Lymphocytes (%) (Auto) 30.4 % Monocytes (%) (Auto) 5.3 % Eosinophils (%) (Auto) 2.4 % Basophils (%) (Auto) 1.2 % Neutrophils # (Auto) 4.9 TH/MM3 Lymphocytes # (Auto) 2.4 TH/MM3 Monocytes # (Auto) 0.4 TH/MM3 Eosinophils # (Auto) 0.2 TH/MM3 Basophils # (Auto) 0.1 TH/MM3 CBC Comment DIFF FINAL Differential Comment Sodium Level 139 MEQ/L Potassium Level 3.8 MEQ/L Chloride Level 101 MEQ/L Carbon Dioxide Level 30.8 MEQ/L Anion Gap 7 MEQ/L Blood Urea Nitrogen 14 MG/DL Creatinine 0.89 MG/DL Estimat Glomerular Filtration 65 ML/MIN Rate Random Glucose 201 MG/DL Calcium Level 9.1 MG/DL Total Bilirubin 0.3 MG/DL Aspartate Amino Transf 14 U/L (AST/SGOT) Alanine Aminotransferase 27 U/L (ALT/SGPT) Alkaline Phosphatase 92 U/L Total Protein 6.6 GM/DL Albumin 2.7 GM/DL Physical Exam General General Appearance: Well Developed, Well Nourished, No Acute Distress, Comfortable Eyes Eye Exam: Pupils Equal, Pupils Reactive, Sclera White, Extraocular Movement Intact Throat Throat Exam: Oral Mucosa [place] & Moist, Oral Pharynx Normal Neck Neck Exam: Neck Supple, Trachea Midline Pulmonary Resp Exam: Clear Bilaterally, Breath Sounds Equal, No Distress Cardiology CV Exam: Regular, Normal Sinus Rhythm Gastrointestinal/Abdomen GI Exam: Soft, Non-Tender, Bowel Sounds Present Musculoskeletal MS Exam: Normal Tone Integumentary Skin Remarks Erythema /swelling and tenderness right lower extremity...improving. Extremeties Extremities Exam: No Edema Neurologic Neuro Exam: Alert, Awake, Oriented, Speech Clear, Moving All Extremities, No Focal Deficits Psychiatric Psych Exam: Appropriate Responses VTE Prophylaxis VTE Remarks Pradexa. PUD Prophylasis PUD Prophylaxis: Protonix Assessment/Plan Assessment/Plan ASSESSMENT AND PLAN 1. This is a 61-year-old female who came to the ER diagnosed with cellulitis of the right foot with foot ulceration. The patient is on vancomycin IV and she got IV Rocephin. The patient is also on antibiotic cefepime one gram IV q.12h. Podiatry input noted . infectious disease input noted. Check MRI of the right foot. ..shows no osteomylitis. Further recommendations per patient's progress. 2. Diabetes mellitus. ADA 1800 calorie diet. NovoLog low-dose sliding scale. Check blood sugars at h.s. Continue the home medication. 3. Hypokalemia. Will replace potassium. Magnesium level was normal. 4. History of hyperlipidemia. Continue with pravastatin 20 mg p.o. daily. 5. History of GERD. Protonix 40 mg p.o. daily. 6. History of atrial fibrillation. The patient is on Pradaxa 150 mg twice a day. 7. History of anxiety. Continue with Xanax 1 mg p.o. q.6h. p.r.n. anxiety. 8. History of hypothyroidism. Continue with levothyroxine 175 mcg p.o. daily. 9. DVT prophylaxis. The patient is on Pradaxa. 10. GI prophylaxis. Protonix 40 mg p.o. daily. 11. Constipation start colace. DC Plan tomorrow. We are going to manage the patient on a daily basis and make recommendations on a daily basis. Discussed Condition with: Patient Eduardo Navarro MD Nov 01, 2016 08:21
[2016-11-01] MEDS: CEFEPIME INJ 1,000 MG in SODIUM CHLORIDE 0.9% INJ 100 ML IV SCH ×2 (08:23→21:22)
[2016-11-01] MEDS: PANTOPRAZOLE SOD 20 MG DELAYED RELEASE TAB PO SCH ×2 (08:23→21:22)
[2016-11-01] MEDS: TRIAMTERENE/HCTZ 37.5 MG/25 MG TAB PO SCH (08:23)
[2016-11-01] MEDS: FUROSEMIDE 20 MG TAB PO SCH (08:23)
[2016-11-01] MEDS: DABIGATRAN ETEXILATE 150 MG CAP PO SCH ×2 (08:23→21:22)
[2016-11-01] MEDS: SODIUM CHLORIDE 0.9% FLUSH 5 ML FLUSH FLUSH SCH ×2 (08:24→21:21)
[2016-11-01] MEDS: MUPIROCIN 2% OINT 22 GM TUBE TOPICAL SCH ×2 (08:24→21:29)
[2016-11-01] MEDS: DOCUSATE SODIUM 100 MG CAP PO SCH ×2 (09:45→21:22)
--- NOTE | 2016-11-01 09:55 | HHI.IDPN ---
Subjective Subjective Remarks Rt leg with some swelling - redness improving No fever Antibiotics IV Vancomycin and Cefepime Lines Peripheral IV line Past Medical History Type 2 diabetes Hypertension Hyperlipidemia Neuropathy CAD Anxiety / Depression Past Surgical History Hysterectomy CABG Allergies: Coded Allergies: Codeine (Verified Allergy, Mild, Nausea/Vomiting, 10/29/16) "I BREAK OUT IN A SWEAT AND VOMITING" Lortab (Verified Allergy, Mild, DIAPHORESIS AND NAUSEA, 10/29/16) TOLERATES PERCOCOT WELL Uncoded Allergies: melon (Allergy, Severe, Anaphylaxis, 10/29/16) Review of Systems Constitutional Constitutional Remarks No fever chills Objective . Vital Signs Date Time Temp Pulse Resp B/P Pulse Ox O2 Delivery O2 Flow Rate FiO2 11/01/16 04:00 97.5 59 16 125/64 99 11/01/16 00:00 97.8 60 16 124/62 96 10/31/16 20:00 97.6 63 16 149/65 98 10/31/16 16:00 97.2 58 20 140/72 100 10/31/16 12:00 97.2 56 18 139/78 100 10/31/16 10/31/16 11/01/16 15:00 23:00 07:00 Intake Total 1050 ml 1480 ml 600 ml Balance 1050 ml 1480 ml 600 ml Intake Oral 1050 ml 1480 ml 600 ml # Voids 4 4 3 # Bowel Movements 0 0 0 . Laboratory Tests Test 10/31/16 11/01/16 04:55 05:17 White Blood Count 6.2 TH/MM3 8.1 TH/MM3 Red Blood Count 4.77 MIL/MM3 5.27 MIL/MM3 Hemoglobin 12.8 GM/DL 14.0 GM/DL Hematocrit 37.8 % 41.7 % Mean Corpuscular Volume 79.3 FL 79.0 FL Mean Corpuscular Hemoglobin 26.8 PG 26.5 PG Mean Corpuscular Hemoglobin 33.8 % 33.5 % Concent Red Cell Distribution Width 12.7 % 12.6 % Platelet Count 237 TH/MM3 284 TH/MM3 Mean Platelet Volume 9.9 FL 9.7 FL Neutrophils (%) (Auto) 51.7 % 60.7 % Lymphocytes (%) (Auto) 37.5 % 30.4 % Monocytes (%) (Auto) 6.3 % 5.3 % Eosinophils (%) (Auto) 3.3 % 2.4 % Basophils (%) (Auto) 1.2 % 1.2 % Neutrophils # (Auto) 3.2 TH/MM3 4.9 TH/MM3 Lymphocytes # (Auto) 2.3 TH/MM3 2.4 TH/MM3 Monocytes # (Auto) 0.4 TH/MM3 0.4 TH/MM3 Eosinophils # (Auto) 0.2 TH/MM3 0.2 TH/MM3 Basophils # (Auto) 0.1 TH/MM3 0.1 TH/MM3 CBC Comment DIFF FINAL DIFF FINAL Differential Comment Laboratory Tests Test 10/31/16 11/01/16 04:55 05:17 Sodium Level 139 MEQ/L 139 MEQ/L Potassium Level 3.2 MEQ/L 3.8 MEQ/L Chloride Level 101 MEQ/L 101 MEQ/L Carbon Dioxide Level 29.8 MEQ/L 30.8 MEQ/L Anion Gap 8 MEQ/L 7 MEQ/L Blood Urea Nitrogen 15 MG/DL 14 MG/DL Creatinine 0.94 MG/DL 0.89 MG/DL Estimat Glomerular Filtration 61 ML/MIN 65 ML/MIN Rate Random Glucose 240 MG/DL 201 MG/DL Calcium Level 8.4 MG/DL 9.1 MG/DL Total Bilirubin 0.4 MG/DL 0.3 MG/DL Aspartate Amino Transf 15 U/L 14 U/L (AST/SGOT) Alanine Aminotransferase 25 U/L 27 U/L (ALT/SGPT) Alkaline Phosphatase 82 U/L 92 U/L Total Protein 6.0 GM/DL 6.6 GM/DL Albumin 2.5 GM/DL 2.7 GM/DL Microbiology Date/Time Procedure Status Source Growth 10/29/16 18:35 Aerobic Blood Culture - Preliminary Resulted Blood Peripheral NO GROWTH IN 2 DAYS 10/29/16 18:35 Anaerobic Blood Culture - Preliminary Resulted Blood Peripheral NO GROWTH IN 2 DAYS 10/29/16 18:40 Aerobic Blood Culture - Preliminary Resulted Blood Peripheral NO GROWTH IN 2 DAYS 10/29/16 18:40 Anaerobic Blood Culture - Preliminary Resulted Blood Peripheral NO GROWTH IN 2 DAYS Physical Exam GENERAL: This is a chronically ill patient, in no apparent distress. SKIN: Right foot erythema on dorsal surface near resolved and some patchiness on leg also improving . Small ulcer with callus on rt big toe with less drainage HEAD: Atraumatic. Normocephalic. No temporal or scalp tenderness. EYES: Pupils equal round and reactive. Extraocular motions intact. No scleral icterus. No injection or drainage. ENT: Nose without bleeding, purulent drainage or septal hematoma. Throat without erythema, tonsillar hypertrophy or exudate. Uvula midline. Airway patent. NECK: Trachea midline. No JVD or lymphadenopathy. Supple, nontender, no meningeal signs. CARDIOVASCULAR: Regular rate and rhythm without murmurs, gallops, or rubs. RESPIRATORY: Clear to auscultation. Breath sounds equal bilaterally. No wheezes , rales, or rhonchi. GASTROINTESTINAL: Abdomen soft, non-tender, nondistended. No hepato-splenomegaly , or palpable masses. No guarding. MUSCULOSKELETAL: Extremities without clubbing, cyanosis, or edema. No joint tenderness, effusion, or edema noted. No calf tenderness. Negative Homans sign bilaterally. NEUROLOGICAL: Awake and alert. Cranial nerves II through XII intact. Motor grossly within normal limits. Five out of 5 muscle strength in all muscle groups. Normal speech.Peripheral neuropathy Assessment & Plan Diagnosis: (1) Cellulitis of right lower extremity Plan: Blood cultures- negative so far MRI reviewed- No osteomyelitis Continue IV Vancomycin and Cefepime for now Change to PO Cefuroxime 500 mg po bid with Doxy 100 mg po bid x 2 weeks on 11/02 (2) Diabetes mellitus Problem Qualifiers (1) Diabetes mellitus: Nora Hastings MD Nov 01, 2016 09:55
[2016-11-01 12:00] VITALS: BP 108/80; PULSE 60; RESP 16; TEMP 97.7; O2SAT 96
[2016-11-01 16:00] VITALS: BP 110/80; PULSE 62; RESP 16; TEMP 97.7; O2SAT 97
[2016-11-01] MEDS: VANCOMYCIN INJ 1,700 MG in SODIUM CHLORID 0.9% 500 ML INJ 500 ML IV SCH (16:31)
[2016-11-01 20:01] VITALS: BP 121/46; PULSE 60; RESP 18; TEMP 98.7; O2SAT 96
[2016-11-01] MEDS: INSULIN DETEMIR 100 UNITS/ML VIAL SQ SCH (21:22)
[2016-11-01] MEDS: PRAVASTATIN SOD 20 MG TAB PO SCH (21:23)
[2016-11-01] MEDS: ALPRAZolam 1 MG TAB PO PRN (21:28)
[2016-11-02] VITALS: BP 132/61; PULSE 60; RESP 16; TEMP 96.1; O2SAT 94
[2016-11-02] MEDS: LEVOTHYROXINE SODIUM 75 MCG TAB PO SCH (06:33)
[2016-11-02] MEDS: INSULIN ASPART SUPPLEMENTAL SCALE SQ SCH (06:33)
[2016-11-02] MEDS: LEVOTHYROXINE SODIUM 100 MCG TAB PO SCH (06:33)
[2016-11-02 06:44] LABS: BASOPHIL % 0.6 % (0.0-2.0); EOSINOPHIL # 0.2 TH/MM3 (0-0.4); HEMATOCRIT 37.2 % (35.0-46.0); HEMO FLAGS DIFF FINAL; LYMPH % 29.8 % (9.0-44.0); LYMPHOCYTE # 2.4 TH/MM3 (1.0-4.8); MEAN CELL VOLUME 79.6 FL (80.0-100.0); MEAN CORPUSCULAR HEMOGLOBIN 27.2 PG (27.0-34.0); MEAN CORPUSCULAR HGB CONC 34.2 % (32.0-36.0); MONO % 5.8 % (0.0-8.0); NEUT % 61.8 % (16.0-70.0); PLATELET COUNT 259 TH/MM3 (150-450); RED BLOOD COUNT 4.67 MIL/MM3 (4.00-5.30); RED CELL DISTRIBUTION WIDTH 12.9 % (11.6-17.2); WHITE BLOOD COUNT 8.1 TH/MM3 (4.0-11.0)
[2016-11-02 06:52] LABS: CHLORIDE 101 MEQ/L (98-107); POTASSIUM 3.5 MEQ/L (3.5-5.1); SODIUM (NA) 138 MEQ/L (136-145)
[2016-11-02 06:58] LABS: ANION GAP 6 MEQ/L (5-15); BICARBONATE 30.9 MEQ/L (21.0-32.0); BLOOD UREA NITROGEN 17 MG/DL (7-18)
[2016-11-02 07:01] LABS: ALT (GPT) 27 U/L (10-53); AST (GOT) 18 U/L (15-37); GLOMERULAR FILTRATION RATE 57 ML/MIN (>89)
[2016-11-02 07:03] LABS: TOTAL BILIRUBIN ADULT 0.3 MG/DL (0.2-1.0)
[2016-11-02 07:04] LABS: ALKALINE PHOSPHATASE 88 U/L (45-117)
[2016-11-02 08:00] VITALS: BP 149/77; PULSE 58; RESP 17; TEMP 97.4; O2SAT 99
[2016-11-02] MEDS: FUROSEMIDE 20 MG TAB PO SCH (08:45)
[2016-11-02] MEDS: DABIGATRAN ETEXILATE 150 MG CAP PO SCH (08:45)
[2016-11-02] MEDS: DOCUSATE SODIUM 100 MG CAP PO SCH (08:45)
[2016-11-02] MEDS: PANTOPRAZOLE SOD 20 MG DELAYED RELEASE TAB PO SCH (08:46)
[2016-11-02] MEDS: CEFEPIME INJ 1,000 MG in SODIUM CHLORIDE 0.9% INJ 100 ML IV SCH (08:46)
[2016-11-02] MEDS: TRIAMTERENE/HCTZ 37.5 MG/25 MG TAB PO SCH (08:47)
--- NOTE | 2016-11-02 09:39 | HHI.PR ---
Subjective History of Present Illness Patient feel better right foot and lower extremity redness/ swelling and pain much better d/w RN at bed side. MRI of right foot shows no osteomylitis.. Low Potassium resolved.... constipation resolved ..ok to dc home today. Review of Systems Constitutional Constitutional: Fatigue, Weakness Integumentary Skin Remarks redness swelling and pain right lower extremity getting better. Vitals/Results Intake & Output 11/01/16 11/01/16 11/02/16 15:00 23:00 07:00 Intake Total 600 ml Balance 600 ml Intake Oral 600 ml # Voids 3 2 Vital Signs Vital Signs Date Time Temp Pulse Resp B/P Pulse Ox O2 Delivery O2 Flow Rate FiO2 11/02/16 08:00 97.4 58 17 149/77 99 11/02/16 00:00 96.1 60 16 132/61 94 11/01/16 20:01 98.7 60 18 121/46 96 11/01/16 16:00 97.7 62 16 110/80 97 11/01/16 12:00 97.7 60 16 108/80 96 CBC/BMP: 11/02/16 0600 11/02/16 0600 Lab Results Laboratory Tests Test 11/02/16 06:00 White Blood Count 8.1 TH/MM3 Red Blood Count 4.67 MIL/MM3 Hemoglobin 12.7 GM/DL Hematocrit 37.2 % Mean Corpuscular Volume 79.6 FL Mean Corpuscular Hemoglobin 27.2 PG Mean Corpuscular Hemoglobin 34.2 % Concent Red Cell Distribution Width 12.9 % Platelet Count 259 TH/MM3 Mean Platelet Volume 9.9 FL Neutrophils (%) (Auto) 61.8 % Lymphocytes (%) (Auto) 29.8 % Monocytes (%) (Auto) 5.8 % Eosinophils (%) (Auto) 2.0 % Basophils (%) (Auto) 0.6 % Neutrophils # (Auto) 5.0 TH/MM3 Lymphocytes # (Auto) 2.4 TH/MM3 Monocytes # (Auto) 0.5 TH/MM3 Eosinophils # (Auto) 0.2 TH/MM3 Basophils # (Auto) 0.0 TH/MM3 CBC Comment DIFF FINAL Differential Comment Sodium Level 138 MEQ/L Potassium Level 3.5 MEQ/L Chloride Level 101 MEQ/L Carbon Dioxide Level 30.9 MEQ/L Anion Gap 6 MEQ/L Blood Urea Nitrogen 17 MG/DL Creatinine 0.99 MG/DL Estimat Glomerular Filtration 57 ML/MIN Rate Random Glucose 242 MG/DL Calcium Level 8.3 MG/DL Total Bilirubin 0.3 MG/DL Aspartate Amino Transf 18 U/L (AST/SGOT) Alanine Aminotransferase 27 U/L (ALT/SGPT) Alkaline Phosphatase 88 U/L Total Protein 6.3 GM/DL Albumin 2.6 GM/DL Physical Exam General General Appearance: Well Developed, Well Nourished, No Acute Distress, Comfortable Eyes Eye Exam: Pupils Equal, Pupils Reactive, Sclera White, Extraocular Movement Intact Throat Throat Exam: Oral Mucosa [place] & Moist, Oral Pharynx Normal Neck Neck Exam: Neck Supple, Trachea Midline Pulmonary Resp Exam: Clear Bilaterally, Breath Sounds Equal, No Distress Cardiology CV Exam: Regular, Normal Sinus Rhythm Gastrointestinal/Abdomen GI Exam: Soft, Non-Tender, Bowel Sounds Present Musculoskeletal MS Exam: Normal Tone Integumentary Skin Remarks Erythema /swelling and tenderness right lower extremity...improving. Extremeties Extremities Exam: No Edema Neurologic Neuro Exam: Alert, Awake, Oriented, Speech Clear, Moving All Extremities, No Focal Deficits Psychiatric Psych Exam: Appropriate Responses VTE Prophylaxis VTE Remarks Pradexa. PUD Prophylasis PUD Prophylaxis: Protonix Assessment/Plan Assessment/Plan ASSESSMENT AND PLAN 1. This is a 61-year-old female who came to the ER diagnosed with cellulitis of the right foot with foot ulceration. The patient is on vancomycin IV and she got IV Rocephin. The patient is also on antibiotic cefepime one gram IV q.12h. Podiatry input noted . infectious disease input noted. Check MRI of the right foot. ..shows no osteomylitis. Further recommendations per patient's progress. 2. Diabetes mellitus. ADA 1800 calorie diet. NovoLog low-dose sliding scale. Check blood sugars at h.s. Continue the home medication. 3. Hypokalemia. Will replace potassium. Magnesium level was normal. 4. History of hyperlipidemia. Continue with pravastatin 20 mg p.o. daily. 5. History of GERD. Protonix 40 mg p.o. daily. 6. History of atrial fibrillation. The patient is on Pradaxa 150 mg twice a day. 7. History of anxiety. Continue with Xanax 1 mg p.o. q.6h. p.r.n. anxiety. 8. History of hypothyroidism. Continue with levothyroxine 175 mcg p.o. daily. 9. DVT prophylaxis. The patient is on Pradaxa. 10. GI prophylaxis. Protonix 40 mg p.o. daily. 11. Constipation start colace. ok to dc home today. f/u with PCP/Infectious disease and Podiatry 1 week. Discussed Condition with: Patient Eduardo Navarro MD Nov 02, 2016 09:39
[2016-11-02] MEDS ORDERED: DOXY100C PO (09:42)
[2016-11-02] MEDS ORDERED: MUPI2OIN TOPICAL (09:42)
[2016-11-02] MEDS ORDERED: CEFU1TAB20 PO (09:42)
[2016-11-02] MEDS ORDERED: VANCOMYCIN TROUGH XX ONE (15:45)
--- NOTE | 2016-11-06 09:58 | MD ---
cc: EDUARDO ALVAREZ MD ADMISSION DATE: 10/29/2016 DISCHARGE DATE: 11/02/2016 Okay to discharge the patient home. Condition at the time of discharge: Satisfactory. Activity: As tolerated. Diet: Cardiac diet. ALLERGIES 1. CODEINE. 2. LORTAB. 3. MELON. DISCHARGE MEDICATIONS 1. Cefuroxime 500 mg p.o. b.i.d. for 2 weeks. 2. Doxycycline 100 mg p.o. b.i.d. for 2 weeks. 3. Bactroban 2% ointment applied to affected areas twice a day. 4. Xanax 1 mg p.o. q.6h. p.r.n. insomnia. 5. Pradaxa 150 mg p.o. b.i.d. 6. Furosemide 20 mg p.o. daily. 7. Lantus insulin 68 units subcutaneous h.s. 8. Levothyroxine 175 mcg p.o. daily. 9. Metformin 500 mg p.o. daily. 10.Omeprazole 20 mg p.o. daily. 11.Pravastatin 20 mg p.o. daily. 12.Triamterene/hydrochlorothiazide one p.o. daily. The patient is advised to follow with PCP, Infectious Disease and podiatry in one week. ADMITTING DIAGNOSIS 1. Cellulitis of the right foot with foot ulceration. The patient was given vancomycin and Rocephin IV during the hospital stay, also given cefepime. Podiatry saw the patient. Infectious Disease saw the patient. MRI done shows no osteomyelitis. 2. Diabetes mellitus. 3. Hypokalemia, which was resolved. 4. Hyperlipidemia. 5. GERD. 6. Atrial fibrillation. 7. Anxiety. 8. Hypothyroidism. HOSPITAL COURSE This is a 61-year-old female admitted with cellulitis of the right foot and also foot ulcer. The patient was seen by Infectious Disease and podiatry. The patient was given empiric antibiotics. The patient's condition improved. The patient had hypokalemia during the hospital stay which resolved. The patient was discharged in a satisfactory condition. Further details in the medical record. Eduardo Alvarez MD EA/[place] /11:54 AM /9:45 AM
== END 2016-11-02 11:37 | disposition home or self-care (01) | DRG 603 ==
LOC: PHED 17:36 → PHEDA 19:24 → PH3A 23:36
PROVIDERS: ADMIT Family Medicine; ATTEND Family Medicine
DX: L03.115 Cellulitis of right lower limb (principal); E11.42 Type 2 diabetes mellitus with diabetic polyneuropathy; E11.621 Type 2 diabetes mellitus with foot ulcer; L97.519 Non-pressure chronic ulcer of other part of right foot with unspecified severity; I48.91 Unspecified atrial fibrillation; F41.9 Anxiety disorder, unspecified; I10 Essential (primary) hypertension; I25.10 Atherosclerotic heart disease of native coronary artery without angina pectoris; K21.9 Gastro-esophageal reflux disease without esophagitis; E03.9 Hypothyroidism, unspecified; G47.30 Sleep apnea, unspecified; E87.6 Hypokalemia; E78.5 Hyperlipidemia, unspecified; H40.9 Unspecified glaucoma; K59.00 Constipation, unspecified; F12.90 Cannabis use, unspecified, uncomplicated; F32.9 Major depressive disorder, single episode, unspecified; Z79.01 Long term (current) use of anticoagulants; Z79.4 Long term (current) use of insulin; Z86.73 Personal history of transient ischemic attack (TIA), and cerebral infarction without residual deficits; Z87.891 Personal history of nicotine dependence; Z88.5 Allergy status to narcotic agent; Z95.1 Presence of aortocoronary bypass graft
CPT/HCPCS: 73630; 73720; 76937; 80048; 80053; 82948; 83735; 85025; 85610; 85730; 87040; 99284; A9579; J0692; J0696; J1815; J3370; J3480; J7040

== ENCOUNTER 2017-05-06 08:46 | Observation (INO) | payer OTHER ==
[2017-05-06] VITALS (7 sets, daily range): BP systolic 158–180; BP diastolic 70–98; PULSE 57–69; RESP 17–21; TEMP 98.2–98.7; O2SAT 98–100
[~2017-05-06] VITALS: Ht 165.1 cm; Wt 101.0 kg
[~2017-05-06 08:46] MED LIST changes: -ALPR0.25 PO; +ALPR1TAB3 PO; -CALA180T PO; +CEFU1TAB20 PO; -CLIN1CAP6 PO; -DABI150 PO; +DOXY100C PO; +FURO20TA PO; +LANTUS2P SQ; -LANTUSP SQ; -MAXZ PO; +METF500T PO; +MUPI2OIN TOPICAL; +OMEP20TA PO; +PRAD150C PO; -PRAV20 PO; +PRAV20TA2 PO; -ST J81CH PO; +TRIA1TAB5 PO
[2017-05-06] MEDS ORDERED: ASPIRIN 81 MG CHEW TAB PO ONE (09:45)
[2017-05-06] MEDS ORDERED: SODIUM CHLORIDE 0.9% FLUSH 10 ML FLUSH IVF PRN (09:45)
[2017-05-06 10:10] LABS: AUTOMATED NEUTROPHIL # 5.6 TH/MM3 (1.8-7.7); BASOPHIL # 0.1 TH/MM3 (0-0.2); EOSINOPHIL # 0.2 TH/MM3 (0-0.4); EOSINOPHIL % 2.4 % (0.0-4.0); HEMATOCRIT 41.1 % (35.0-46.0); HEMO FLAGS DIFF FINAL; LYMPH % 25.2 % (9.0-44.0); LYMPHOCYTE # 2.1 TH/MM3 (1.0-4.8); MEAN CELL VOLUME 78.3 FL (80.0-100.0); MEAN CORPUSCULAR HEMOGLOBIN 27.3 PG (27.0-34.0); MEAN CORPUSCULAR HGB CONC 34.9 % (32.0-36.0); MONO % 4.9 % (0.0-8.0); NEUT % 66.5 % (16.0-70.0); PLATELET COUNT 217 TH/MM3 (150-450); RED BLOOD COUNT 5.25 MIL/MM3 (4.00-5.30); RED CELL DISTRIBUTION WIDTH 14.6 % (11.6-17.2); WHITE BLOOD COUNT 8.4 TH/MM3 (4.0-11.0)
[2017-05-06] MEDS ORDERED: LEVO200T4 PO (10:13)
[2017-05-06] MEDS ORDERED: OMEP20TA PO (10:15)
--- NOTE | 2017-05-06 10:30 | RADRPT ---
EXAM DATE/TIME: 05/06/2017 09:32 [place] COMPARISON: CHEST SINGLE AP, August 30, 2016, 8:49. INDICATIONS : Chest pain and dizziness today , patient has histort of triple bypass. MEDICAL HISTORY : Hypertension. Diabetes. A-fib. TIA SURGICAL HISTORY : CABG Umbilical hernia repair. Tonsillectomy. Discectomy ENCOUNTER: Initial ACUITY: 1 day PAIN SCORE: 6/10 LOCATION: Bilateral upper chest FINDINGS: A single view of the chest demonstrates the lungs to be symmetrically aerated without evidence of mas s, infiltrate or effusion. Median sternotomy wires from prior open heart surgery are noted. The card iomediastinal contours are stable. Heart remains mildly enlarged Osseous structures are intact. CONCLUSION: No acute disease. Oren Garza MD on May 06, 2017 at 10:27 Board Certified Radiologist. This report was verified electronically.
[2017-05-06 10:36] LABS: ALKALINE PHOSPHATASE 100 U/L (45-117); ALT (GPT) 27 U/L (10-53); TOTAL BILIRUBIN ADULT 0.5 MG/DL (0.2-1.0)
[2017-05-06 10:46] LABS: ANION GAP 8 MEQ/L (5-15); AST (GOT) 37 U/L (15-37); BICARBONATE 28.3 MEQ/L (21.0-32.0); BLOOD UREA NITROGEN 23 MG/DL (7-18); CHLORIDE 96 MEQ/L (98-107); GLOMERULAR FILTRATION RATE 43 ML/MIN (>89); SODIUM (NA) 132 MEQ/L (136-145)
[2017-05-06] MEDS ORDERED: SENNOSIDES 8.6 MG TAB PO PRN (13:00)
[2017-05-06] MEDS ORDERED: ALPRAZolam 1 MG TAB PO PRN (13:00)
[2017-05-06] MEDS ORDERED: ONDANSETRON HCL 4 MG/2 ML VIAL IVP PRN (13:00)
[2017-05-06] MEDS ORDERED: SODIUM CHLORIDE 0.9% FLUSH 10 ML FLUSH IV FLUSH PRN (13:00)
[2017-05-06] MEDS ORDERED: MAGNESIUM HYDROXIDE SUSP 30 ML CUP PO PRN (13:00)
[2017-05-06] MEDS ORDERED: LACTULOSE SYRUP 20 GM/30 ML CUP PO PRN (13:00)
[2017-05-06] MEDS ORDERED: BISACODYL 10 MG SUPP RECTAL PRN (13:00)
[2017-05-06] MEDS ORDERED: NALOXONE HCL 0.4 MG/ML AMP IV PRN (13:00)
--- NOTE | 2017-05-06 13:45 | PD ---
HPI Chief Complaint: Chest Pain Time Seen by Provider: 09:34 Travel History International Travel<30 days: No Contact w/Intl Traveler<30days: No Traveled to known affect area: No History of Present Illness HPI This is a 62-year-old female who has a history of CABG and diabetes who presents to the emergency department having had an episode of chest discomfort that started this morning described as someone stepping on her left chest, constant, moderate severity, associated with shortness of breath, nausea and some sweating last night. She says she had trouble getting into the emergency department she thought she was coming to faint. She thinks she's had a stress test within the past year with Dr. Knight. [facility] Past Medical History Hx Anticoagulant Therapy: Yes (PRADAXA) Atrial Fibrillation: Yes (AFIB/AFLUTTER) Blood Disorders: No Anxiety: Yes Depression: Yes Heart Rhythm Problems: Yes Cancer: No Cardiac Catheterization: Yes Cardiovascular Problems: Yes (HTN; TRIPLE BYPASS) High Cholesterol: Yes Chest Pain: Yes Congestive Heart Failure: No Cerebrovascular Accident: Yes (TIA 2015) Coronary Artery Disease: Yes Diabetes: Yes (TYPE 2 ) Patient Takes Glucophage: No Diminished Hearing: No Endocrine: Yes Gastrointestinal Disorders: Yes (digestive issues;IBS) GERD: Yes Glaucoma: Yes Genitourinary: Yes Herniated Disk: Yes Hypertension: Yes Immune Disorder: No Implanted Vascular Access Dvce: No Musculoskeletal: Yes Neurologic: Yes (tiny brain tumor - benign,DIABETIC NEUROPATHY IN FEET) Psychiatric: Yes (depression and anxiety) Reproductive: No Respiratory: No Immunizations Current: Yes Pneumonia: Yes Sleep Apnea: Yes (NO CPAP) Thyroid Disease: Yes (HYPOTHYROIDISM) Triglycerides - High: Yes Ulcer: Yes (DUODENAL A TEENAGER) ?: Not Menopausal: Yes : 2 Para: 2 Past Surgical History Abdominal Surgery: Yes (UMBILICAL HERNIA REPAIR) Cardiac Surgery: Yes (CABG x 3: AGE 52) Coronary Artery Bypass Graft: Yes (TRIPLE BYPASS) Gynecologic Surgery: Yes (HYSTERECTOMY) Hysterectomy: Yes Tonsillectomy: Yes Other Surgery: Yes (HYSTERECTOMY.) Family History Family Myocardial Infarction: Yes (3 uncles) Social History Alcohol Use: No Tobacco Use: No (QUIT: AGE 52) Substance Use: No (DENIES; HX MARIJUANA "ONCE IN AWHILE") Allergies-Medications (Allergen,Severity, Reaction): Coded Allergies: Codeine (Verified Allergy, Mild, Nausea/Vomiting, 05/06/17) "I BREAK OUT IN A SWEAT AND VOMITING" Lortab (Verified Allergy, Mild, DIAPHORESIS AND NAUSEA, 05/06/17) TOLERATES PERCOCOT WELL Uncoded Allergies: melon (Allergy, Severe, Anaphylaxis, 10/29/16) Reported Meds & Prescriptions Reported Meds & Active Scripts Active Reported Omeprazole 20 Mg Tab 20 Mg PO DAILY Levothyroxine (Levothyroxine Sodium) 200 Mcg Tab 200 Mcg PO DAILY Furosemide 20 Mg Tab 20 Mg PO DAILY Pravastatin 20 Mg Tab 20 Mg PO HS Triamterene-Hydrochlorothiazide 75-50 Mg Tab 1 Tab PO DAILY Pradaxa (Dabigatran) 150 Mg Cap 150 Mg PO BID Metformin (Metformin HCl) 500 Mg Tab 500 Mg PO DAILY With a meal Lantus Inj (Insulin Glargine) 1,000 Unit/10 Ml Vial 68 Units SQ HS Alprazolam 1 Mg Tab 1 Mg PO Q6H PRN Review of Systems Except as stated in HPI: all other systems reviewed are Neg Physical Exam Narrative GENERAL:Well appearing, no acute distress SKIN: Focused skin assessment warm and dry. HEAD: Atraumatic. Normocephalic. EYES: Pupils equal and round. No injection or drainage. ENT: Moist mucous membranes NECK: Trachea midline. CARDIOVASCULAR: Regular rate and rhythm. No murmur appreciated. RESPIRATORY: Clear to auscultation. Breath sounds equal bilaterally. GASTROINTESTINAL: Abdomen soft, non-tender, nondistended. MUSCULOSKELETAL: No obvious deformities. NEUROLOGICAL: Awake and alert. No obvious cranial nerve deficits. Moving all extremities. PSYCHIATRIC: Appropriate mood and affect; insight and judgment normal. Data Data Last Documented VS Vital Signs Date Time Temp Pulse Resp B/P Pulse Ox O2 Delivery O2 Flow Rate FiO2 05/06/17 10:31 59 180/78 05/06/17 10:27 98 Room Air 05/06/17 09:56 21 05/06/17 08:49 98.2 Orders Electrocardiogram (05/06/17 ) Complete Blood Count With Diff (05/06/17 09:35) Comprehensive Metabolic Panel (05/06/17 09:35) Troponin I (05/06/17 09:35) Chest, Single Ap (05/06/17 09:35) Ecg Monitoring (05/06/17 09:35) Bilateral Bp Monitoring (05/06/17 09:35) Iv Access Insert/Monitor (05/06/17 09:35) Oximetry (05/06/17 09:35) Oxygen Administration (05/06/17 09:35) Aspirin Chew (Aspirin Chew) (05/06/17 09:45) Sodium Chloride 0.9% Flush (Ns Flush) (05/06/17 09:45) Admit Order (Ed Use Only) (05/06/17 11:07) Labs Laboratory Tests Test 05/06/17 09:45 White Blood Count 8.4 TH/MM3 Red Blood Count 5.25 MIL/MM3 Hemoglobin 14.3 GM/DL Hematocrit 41.1 % Mean Corpuscular Volume 78.3 FL Mean Corpuscular Hemoglobin 27.3 PG Mean Corpuscular Hemoglobin 34.9 % Concent Red Cell Distribution Width 14.6 % Platelet Count 217 TH/MM3 Mean Platelet Volume 9.8 FL Neutrophils (%) (Auto) 66.5 % Lymphocytes (%) (Auto) 25.2 % Monocytes (%) (Auto) 4.9 % Eosinophils (%) (Auto) 2.4 % Basophils (%) (Auto) 1.0 % Neutrophils # (Auto) 5.6 TH/MM3 Lymphocytes # (Auto) 2.1 TH/MM3 Monocytes # (Auto) 0.4 TH/MM3 Eosinophils # (Auto) 0.2 TH/MM3 Basophils # (Auto) 0.1 TH/MM3 CBC Comment DIFF FINAL Differential Comment Sodium Level 132 MEQ/L Potassium Level 5.0 MEQ/L Chloride Level 96 MEQ/L Carbon Dioxide Level 28.3 MEQ/L Anion Gap 8 MEQ/L Blood Urea Nitrogen 23 MG/DL Creatinine 1.27 MG/DL Estimat Glomerular Filtration 43 ML/MIN Rate Random Glucose 267 MG/DL Calcium Level 9.4 MG/DL Total Bilirubin 0.5 MG/DL Aspartate Amino Transf 37 U/L (AST/SGOT) Alanine Aminotransferase 27 U/L (ALT/SGPT) Alkaline Phosphatase 100 U/L Troponin I LESS THAN 0.02 NG/ML Total Protein 7.8 GM/DL Albumin 3.5 GM/DL MDM Medical Decision Making Medical Screen Exam Complete: Yes Emergency Medical Condition: Yes Interpretation(s) Afebrile, no tachycardia, hypertensive No leukocytosis Mild renal insufficiency Hyperglycemia Troponin is normal Differential Diagnosis Acute coronary syndrome, pulmonary embolism, pneumonia, costochondritis Narrative Course This is a 62-year-old female who presents to the emergency department with chest discomfort that started this morning associated with shortness of breath, nausea and diaphoresis. She has a history of CABG in the past. She thinks her last stress test was within a year. She is placed in a monitor and an IV was established. Labs were obtained which were reassuring. I switched Dr. Knight who requested she be admitted to the medical service with cardiology consultation. Diagnosis Primary Impression: Chest pressure Admitting Information Admitting Physician Requests: Observation Sandra Ozuna MD May 06, 2017 13:45
[2017-05-06 13:53] LABS: CREATINE KINASE 107 U/L (26-192)
--- NOTE | 2017-05-06 14:39 | PD.CONS ---
HPI Service Cardiology Physicians Consult Requested By Dr. Guthrie Reason for Consult Chest pain Primary Care Physician Damien Hamilton, DO History of Present Illness The patient is a 62 year old female with a history of ASHD with CABG 2010 with a negative nuclear stress test 04/2016, atrial fibrillation with TIA on Pradaxa, HTN, diabetes, hypothyroidism and hyperlipidemia. The patient presented to the ER today from diabetic education class. The patient had a sudden onset of chest pressure associated with nausea, diaphoresis, lightheadedness and palpitations. She states that she was doing lymphedema treatment this morning. She usually has some palpitations during and after therapy. This morning as soon as she finished the lymphedema therapy she left the house quickly to get to diabetes class. EKG is stable compared with previous EKG from 11/2016 visit. Troponin X 2 negative. (Abril Espinoza) Review of Systems Consitutional: DENIES: Fatigue, Fever, Chills, Weight gain, Weight loss Eyes: DENIES: Amaurosis Fugax, Change in vision HEENT: COMPLAINS OF: Lightheadedness, DENIES: Change in hearing Respiratory: COMPLAINS OF: Shortness of breath, DENIES: See HPI, Cough, Snoring, Wheezing, Sputum production Cardiovascular: COMPLAINS OF: Chest pain, Palpitations, DENIES: See HPI, Syncope, Tachycardia Gastrointestinal: COMPLAINS OF: Nausea, DENIES: Vomiting, Change in bowel habits, Reflux, Bloody stools, Melena Genitourinary: DENIES: Urinary incontinence, Difficulty voiding Integumentary: DENIES: Rash Neurologic: DENIES: Tingling or numbness, Memory problems, Poor Balance, Stroke symptoms Musculoskeletal: DENIES: Joint pain, Muscle pain, Limited range of motion, Back pain Psychiatric: DENIES: Anxiety, Depression, Sleep disturbances Hematologic: DENIES: Bruising tendencies, Bleeding tendencies Endocrine: DENIES: Weight gain, Weight loss, Thyroid disease (Abril Espinoza ) Past Family Social History Allergies: Coded Allergies: Codeine (Verified Allergy, Mild, Nausea/Vomiting, 05/06/17) "I BREAK OUT IN A SWEAT AND VOMITING" Lortab (Verified Allergy, Mild, DIAPHORESIS AND NAUSEA, 05/06/17) TOLERATES PERCOCOT WELL Uncoded Allergies: melon (Allergy, Severe, Anaphylaxis, 10/29/16) Past Medical History afib TIA ASHD CABG 2010 HTN Diabetes hypothyroidism hyperlipidemia Past Surgical History CABG 2011 Hernia 2001 Hysterectomy 2000 Discetomy 1983 Tonsillectomy 1975 Reported Medications Reported Meds & Active Scripts Active Reported Omeprazole 20 Mg Tab 20 Mg PO DAILY Levothyroxine (Levothyroxine Sodium) 200 Mcg Tab 200 Mcg PO DAILY Furosemide 20 Mg Tab 20 Mg PO DAILY Pravastatin 20 Mg Tab 20 Mg PO HS Triamterene-Hydrochlorothiazide 75-50 Mg Tab 1 Tab PO DAILY Pradaxa (Dabigatran) 150 Mg Cap 150 Mg PO BID Metformin (Metformin HCl) 500 Mg Tab 500 Mg PO DAILY With a meal Lantus Inj (Insulin Glargine) 1,000 Unit/10 Ml Vial 68 Units SQ HS Alprazolam 1 Mg Tab 1 Mg PO Q6H PRN Active Ordered Medications Current Medications Medications (Trade) Dose Ordered Sig/Miroslava Route Start Time Stop Time Status Last Admin (Xanax) 1 mg Q6H PRN PO 05/06/17 13:00 (Pradaxa) 150 mg BID PO 05/06/17 21:00 (Lasix) 20 mg DAILY PO 05/07/17 09:00 (Levemir Inj) 68 units HS SQ 05/06/17 21:00 (Synthroid) 200 mcg DAILY@06 PO 05/07/17 06:00 (Pravachol) 20 mg HS PO 05/06/17 21:00 (Maxzide 75-50 Mg) 1 tab DAILY PO 05/07/17 09:00 (Protonix) 20 mg DAILY PO 05/07/17 09:00 (NS Flush) 2 ml UNSCH PRN IV FLUSH 05/06/17 13:00 (NS Flush) 2 ml BID IV FLUSH 05/06/17 21:00 (Tylenol) 650 mg Q4H PRN PO 05/06/17 13:00 (Zofran Inj) 4 mg Q6H PRN IVP 05/06/17 13:00 (Narcan Inj) 0.4 mg UNSCH PRN IV 05/06/17 13:00 (Syeda-Colace) 1 tab BID PO 05/06/17 21:00 (Milk Of Magnesia Liq) 30 ml Q12H PRN PO 05/06/17 13:00 (Senokot) 17.2 mg Q12H PRN PO 05/06/17 13:00 (Dulcolax Supp) 10 mg DAILY PRN RECTAL 05/06/17 13:00 (Lactulose Liq) 30 ml DAILY PRN PO 05/06/17 13:00 Family History son 32 ASHD Social History non smoker, non drinker (Abril Espinoza) Physical Exam Vital Signs Vital Signs Date Time Temp Pulse Resp B/P Pulse Ox O2 Delivery O2 Flow Rate FiO2 05/06/17 12:51 60 19 158/70 99 05/06/17 10:31 59 180/78 05/06/17 10:27 98 Room Air 05/06/17 10:23 57 158/70 05/06/17 09:56 58 21 158/70 100 Room Air 05/06/17 09:56 59 Room Air 05/06/17 08:49 98.2 69 17 163/98 98 Physical Exam GENERAL: Middle age female, at bedside SKIN: Warm and dry. HEAD: Atraumatic. Normocephalic. EYES: Pupils equal and round. No scleral icterus. No injection or drainage. ENT: No nasal bleeding or discharge. Mucous membranes pink and moist. NECK: Trachea midline. CARDIOVASCULAR: Regular rate and rhythm. RESPIRATORY: No accessory muscle use. Clear to auscultation. Breath sounds equal bilaterally. GASTROINTESTINAL: Abdomen soft, non-tender, nondistended. MUSCULOSKELETAL: Extremities without clubbing, cyanosis. BLE pretibial edema NEUROLOGICAL: Awake and alert. No obvious cranial nerve deficits. Normal speech. PSYCHIATRIC: Appropriate mood and affect; insight and judgment normal. Laboratory Laboratory Tests Test 05/06/17 05/06/17 09:45 12:45 White Blood Count 8.4 Red Blood Count 5.25 Hemoglobin 14.3 Hematocrit 41.1 Mean Corpuscular Volume 78.3 Mean Corpuscular Hemoglobin 27.3 Mean Corpuscular Hemoglobin 34.9 Concent Red Cell Distribution Width 14.6 Platelet Count 217 Mean Platelet Volume 9.8 Neutrophils (%) (Auto) 66.5 Lymphocytes (%) (Auto) 25.2 Monocytes (%) (Auto) 4.9 Eosinophils (%) (Auto) 2.4 Basophils (%) (Auto) 1.0 Neutrophils # (Auto) 5.6 Lymphocytes # (Auto) 2.1 Monocytes # (Auto) 0.4 Eosinophils # (Auto) 0.2 Basophils # (Auto) 0.1 CBC Comment DIFF FINAL Differential Comment Sodium Level 132 Potassium Level 5.0 Chloride Level 96 Carbon Dioxide Level 28.3 Anion Gap 8 Blood Urea Nitrogen 23 Creatinine 1.27 Estimat Glomerular Filtration 43 Rate Random Glucose 267 Calcium Level 9.4 Total Bilirubin 0.5 Aspartate Amino Transf 37 (AST/SGOT) Alanine Aminotransferase 27 (ALT/SGPT) Alkaline Phosphatase 100 Troponin I LESS THAN 0.02 LESS THAN 0.02 Total Protein 7.8 Albumin 3.5 Total Creatine Kinase 107 (Abril Espinoza) Result Diagram: 05/06/1794405/06/17944 Imaging Last 72 hours Impressions Chest X-Ray 05/06/17934 Signed Impressions: Service Date/Time: Saturday, May 06, 2017 09:32 - CONCLUSION: No acute disease. Oren Garza MD (Abril Espinoza) Assessment and Plan Assessment and Plan ASSESSMENT Chest pain-troponin X 2 negative, EKG unchanged from previous. Hx TWI lateral leads ASHD CABG 2010, nuclear stress test 2015 Atrial fibrillation on Pradaxa Hyperlipidemia Hypertension Diabetes Hypothyroidism Renal insufficiency Lymphedema PAD PLAN We will watch patient overnight to make sure not recurrent episodes of chest pain. Will give amlodipine 5 mg once today and follow up BP. Add on BNP Continue Pradaxa and ASA Patient seen and evaluated by Dr Knight. (Abril Espinoza) Assessment and Plan The exam, history, and the medical decision-making described in the above note were completed with the assistance of the mid-level provider. I reviewed and agree with the findings presented. I attest that I had a [id number] encounter with the patient on the same day, and personally performed and documented my assessment and findings in the medical record, Rule out [place] , if ruled out will continue work up as a outpatient. (Aleksandr Knight MD) Abril Espinoza May 06, 2017 14:39 Aleksandr Knight MD May 07, 2017 14:34
--- NOTE | 2017-05-06 14:55 | EKG ---
Date Performed: 05/06/2017 Time Performed: 09:11:09 PTAGE: 62 years EKG: Sinus rhythm MODERATE T-WAVE ABNORMALITY, CONSIDER LATERAL ISCHEMIA ABNORMAL ECG PREVIOUS TRACING : 01/15/2016 21.43 DOCTOR: Clay Lewis Interpretating Date/Time 05/06/2017 14:52:27
[2017-05-06] MEDS: ACETAMINOPHEN 325 MG TAB PO PRN (17:46)
[2017-05-06 19:24] LABS: CREATINE KINASE 111 U/L (26-192)
--- NOTE | 2017-05-06 19:56 | HP.UPD ---
H&P Update Note This is a 62-year-old female with history of diabetes, hyperlipidemia and obesity, she came in with chest pressure, creatinine was 1.27, potassium was 5, blood pressure was slightly elevated, heart rate is 93, reticulocyte enzymes and EKG was unremarkable, she was placed on observation, serial CKs and troponin ordered, and her lead miner blasting consulted. Full history and physical to follow She was seen and examined by the undersigned in room H 93 Jessica Guthrie MD May 06, 2017 19:54
[2017-05-06] MEDS: DOCUSATE SODIUM 50 MG/SENNA 8.6 MG TAB PO SCH (20:56)
[2017-05-06] MEDS: DABIGATRAN ETEXILATE 150 MG CAP PO SCH (20:56)
[2017-05-06] MEDS ORDERED: INSULIN DETEMIR 100 UNITS/ML VIAL SQ SCH (21:00)
[2017-05-06] MEDS ORDERED: PRAVASTATIN SOD 20 MG TAB PO SCH (21:00)
[2017-05-06] MEDS: SODIUM CHLORIDE 0.9% FLUSH 10 ML FLUSH IV FLUSH SCH (21:00)
[2017-05-07 01:05] VITALS: BP 133/61; PULSE 57; RESP 17; TEMP 98.2; O2SAT 97
[2017-05-07 05:58] LABS: AUTOMATED NEUTROPHIL # 4.4 TH/MM3 (1.8-7.7); BASOPHIL # 0.1 TH/MM3 (0-0.2); BASOPHIL % 1.1 % (0.0-2.0); EOSINOPHIL # 0.2 TH/MM3 (0-0.4); EOSINOPHIL % 2.8 % (0.0-4.0); HEMATOCRIT 37.4 % (35.0-46.0); HEMO FLAGS DIFF FINAL; LYMPH % 28.8 % (9.0-44.0); LYMPHOCYTE # 2.1 TH/MM3 (1.0-4.8); MEAN CELL VOLUME 77.9 FL (80.0-100.0); MEAN CORPUSCULAR HEMOGLOBIN 26.8 PG (27.0-34.0); MEAN CORPUSCULAR HGB CONC 34.4 % (32.0-36.0); MONO % 6.3 % (0.0-8.0); PLATELET COUNT 212 TH/MM3 (150-450); RED BLOOD COUNT 4.79 MIL/MM3 (4.00-5.30); RED CELL DISTRIBUTION WIDTH 14.4 % (11.6-17.2); WHITE BLOOD COUNT 7.2 TH/MM3 (4.0-11.0)
[2017-05-07] MEDS ORDERED: LEVOTHYROXINE SODIUM 200 MCG TAB PO SCH (06:00)
[2017-05-07 06:23] LABS: BICARBONATE 31.4 MEQ/L (21.0-32.0); POTASSIUM 3.6 MEQ/L (3.5-5.1)
[2017-05-07 07:04] VITALS: PULSE 53
[2017-05-07 07:43] VITALS: BP_SYST 160; BP_SYST 170; BP_DIAS 66; PULSE 68; RESP 16; TEMP 98.2; O2SAT 98
--- NOTE | 2017-05-07 07:57 | MH ---
cc: FOUZIA ALEMAN MD DATE OF ADMISSION 05/06/2017 DATE OF [address] Aleman present. CHIEF COMPLAINT Chest pain. Travel in last 30 days none. HISTORY OF PRESENT ILLNESS This is a pleasant 62-year-old white female with a significant history of cardiovascular disease. She presents to the emergency room with left-sided chest pain non-radiating. She states that there were some symptoms of nausea and dizziness with the pain that lasted approximately 45 minutes. The patient took two aspirin and pain was relieved. She came to the emergency room and was evaluated. The patient also notes that she has a machine at home that is used for her lymphedema in her lower extremities. This machine causes a pressure sensation on her legs bilateral to remove any edema out of her legs. She does note this chest pain started right after taking the machine off of her legs. PAST MEDICAL HISTORY 1. Atrial fibrillation on anticoagulation 2. Anxiety, depression, 3. Hypertension, 4. Hyperlipidemia 5. TIAs 6. Coronary artery disease, 7. Diabetes type 2 with peripheral neuropathy 8. Gastroesophageal reflux disease 9. Pre-glaucoma 10. History of degenerative disk disease and herniated disk 11. Hypertension 12. Small brain tumor that was benign. 13. Hypothyroidism 14. Duodenal ulcers. PAST SURGICAL HISTORY 1. Hysterectomy, 2. Tonsillectomy, 3. Local hernia repair 4. Coronary artery bypass graft x3 at age 52. 5. Triple bypass. ALLERGIES CODEINE LORTAB MELON FAMILY HISTORY Positive family history for heart disease. MEDICATIONS Reported 1. Omeprazole 2. Levothyroxine 3. Lasix 4. Pravastatin 5. Pradaxa 6. Metformin 7. Lantus insulin 8. Xanax 1 mg as needed 9. Triamterene/Hydrochlorothiazide SOCIAL HISTORY The patient is single, but has had a significant other who lives with her. Denies any alcohol use, previous tobacco use in her younger years but quit approximately nine years ago. Occasional marijuana use. REVIEW OF SYSTEMS A 12-point review was obtained. positives noted in HPI which was predominantly her left-sided chest pain, nausea, dizziness, mild lymphedema. Other systems negative or unremarkable. PHYSICAL EXAMINATION VITAL SIGNS: Temperature is 98.2. pulse 69 on admission 57 is the low, respirations 17, blood pressure 163/98 and 158/70, O2 sat 98 currently on room air, GENERAL: Mildly obese, well-nourished white female looks to be her stated age resting on the bed, head of bed elevated, no acute chest pain or shortness of breath noted. Skin: [place], warm and dry. HEENT: Atraumatic, normocephalic. PERRLA at 2. Mucous membranes are moist. No scleral icterus. NECK: Supple. CARDIOVASCULAR: S1-S2 distant heart sounds but no audible murmurs, rubs or gallops. LUNGS: Sounds are essentially clear anteriorly and posteriorly with no wheezes or rhonchi. ABDOMEN: Round, soft, nontender, nondistended, active bowel sounds. MUSCULOSKELETAL: Moves all extremities with purpose. She does have some trace to 1+ bilateral lower extremity edema. NEUROLOGIC: She is alert, oriented, a good historian. Equal hand carpenter maintenance. Speech is clear. PSYCHIATRIC: Appropriate mood and affect, insight and judgment normal. HEMATOLOGY DIAGNOSTIC LABS WBC count 8.4, RBC 5.25, hemoglobin 14.3, hematocrit 41.1, MCV 78.3, platelet count 217. Her Diff. is normal. Sodium 132, potassium 5, chloride 96, carbon dioxide 28.3, anion gap eight, BUN 23, creatinine 1.27, GFR 43, random glucose 267. Her troponin is less than 0.02 x two. Total protein 7.8, albumin 3.5. IMAGING STUDIES Chest x-ray has no acute disease. ASSESSMENT/PLAN 1. Chest pain, rule [place]/known cardiovascular disease. 2. Hyponatremia 3. Acute kidney injury 4. Hyperglycemia in the presence of diabetes mellitus type 2 uncontrolled. 5. History of hypertension. 6. Hyperlipidemia. PLAN Rule out for cardiac event with consult to cardiology for his expert opinion. The patient will have vital signs monitored q4. Constant ECG monitoring, IV access, O2 if needed. The patient's medications will be reconciled. Pain management if the patient's returns. SCDs for DVT prophylaxis. She can be out of bed but with assistance and she has currently been placed in observation. We will do Accu-Cheks a.c. and hs with sliding scale. The patient will be on heart healthy ADA diet. Hospital course and treatment will be based on the findings of any further testing and evaluation of her chest pain. Dictated by MACIEJ Hinds MD RACHAEL Webster /2:14 PM /7:52 AM
--- NOTE | 2017-05-07 08:26 | EKG ---
Date Performed: 05/06/2017 Time Performed: 19:12:38 PTAGE: 62 years EKG: SINUS BRADYCARDIA ST DEVIATION AND MODERATE T-WAVE ABNORMALITY, CONSIDER LATERAL ISCHEMIA A BNORMAL ECG NO PREVIOUS TRACING DOCTOR: Samuel Fisher Interpretating Date/Time 05/07/2017 08:24:21
--- NOTE | 2017-05-07 08:36 | EKG ---
Date Performed: 05/06/2017 Time Performed: 12:52:47 PTAGE: 62 years EKG: SINUS BRADYCARDIA ST DEVIATION AND MODERATE T-WAVE ABNORMALITY, CONSIDER LATERAL ISCHEMIA A BNORMAL ECG PREVIOUS TRACING : 05/06/2017 09.11 DOCTOR: Samuel Fisher Interpretating Date/Time 05/07/2017 08:31:15
--- NOTE | 2017-05-07 08:38 | HHI.PR ---
Subjective Subjective Remarks no cp slept well no sob BP 170s this am anxious to go home Review of Systems Constitutional Constitutional Remarks 12 point ros completed, negative except as noted above Vitals/Results Intake & Output 05/06/17 05/06/17 05/07/17 14:59 22:59 06:59 Intake Total 200 ml 200 ml Balance 200 ml 200 ml Intake Oral 200 ml 200 ml Vital Signs Vital Signs Date Time Temp Pulse Resp B/P Pulse Ox O2 Delivery O2 Flow Rate FiO2 05/07/17 07:43 98.2 68 16 170/66 98 05/07/17 01:05 98.2 57 17 133/61 97 05/06/17 19:44 98.7 60 18 163/70 98 05/06/17 16:22 59 05/06/17 12:51 60 19 158/70 99 05/06/17 10:31 59 180/78 05/06/17 10:27 98 Room Air 05/06/17 10:23 57 158/70 05/06/17 09:56 58 21 158/70 100 Room Air 05/06/17 09:56 59 Room Air 05/06/17 08:49 98.2 69 17 163/98 98 CBC/BMP: 05/07/17 0452 05/07/17 0452 Lab Results Laboratory Tests Test 05/06/17 05/06/17 05/06/17 05/07/17 09:45 12:45 18:50 04:52 White Blood Count 8.4 TH/MM3 7.2 TH/MM3 Red Blood Count 5.25 MIL/MM3 4.79 MIL/MM3 Hemoglobin 14.3 GM/DL 12.9 GM/DL Hematocrit 41.1 % 37.4 % Mean Corpuscular Volume 78.3 FL 77.9 FL Mean Corpuscular Hemoglobin 27.3 PG 26.8 PG Mean Corpuscular Hemoglobin 34.9 % 34.4 % Concent Red Cell Distribution Width 14.6 % 14.4 % Platelet Count 217 TH/MM3 212 TH/MM3 Mean Platelet Volume 9.8 FL 9.9 FL Neutrophils (%) (Auto) 66.5 % 61.0 % Lymphocytes (%) (Auto) 25.2 % 28.8 % Monocytes (%) (Auto) 4.9 % 6.3 % Eosinophils (%) (Auto) 2.4 % 2.8 % Basophils (%) (Auto) 1.0 % 1.1 % Neutrophils # (Auto) 5.6 TH/MM3 4.4 TH/MM3 Lymphocytes # (Auto) 2.1 TH/MM3 2.1 TH/MM3 Monocytes # (Auto) 0.4 TH/MM3 0.5 TH/MM3 Eosinophils # (Auto) 0.2 TH/MM3 0.2 TH/MM3 Basophils # (Auto) 0.1 TH/MM3 0.1 TH/MM3 CBC Comment DIFF FINAL DIFF FINAL Differential Comment Sodium Level 132 MEQ/L 135 MEQ/L Potassium Level 5.0 MEQ/L 3.6 MEQ/L Chloride Level 96 MEQ/L 98 MEQ/L Carbon Dioxide Level 28.3 MEQ/L 31.4 MEQ/L Anion Gap 8 MEQ/L 6 MEQ/L Blood Urea Nitrogen 23 MG/DL 24 MG/DL Creatinine 1.27 MG/DL 1.00 MG/DL Estimat Glomerular Filtration 43 ML/MIN 56 ML/MIN Rate Random Glucose 267 MG/DL 207 MG/DL Calcium Level 9.4 MG/DL 8.7 MG/DL Total Bilirubin 0.5 MG/DL Aspartate Amino Transf 37 U/L (AST/SGOT) Alanine Aminotransferase 27 U/L (ALT/SGPT) Alkaline Phosphatase 100 U/L Troponin I LESS THAN 0.02 LESS THAN 0.02 LESS THAN 0.02 NG/ML NG/ML NG/ML B-Type Natriuretic Peptide 132 PG/ML Total Protein 7.8 GM/DL Albumin 3.5 GM/DL Total Creatine Kinase 107 U/L 111 U/L Physical Exam General General Appearance: Well Developed, Comfortable Eyes Eye Exam: Pupils Equal, Pupils Reactive Ears & Nose Ears & Nose Exam: Nasal Mucosa Girard Throat Throat Exam: Oral Mucosa Girard & Moist Neck Neck Exam: Neck Supple, Trachea Midline Pulmonary Resp Exam: Clear Bilaterally, No Distress Cardiology CV Exam: Regular, Good Perfusion Gastrointestinal/Abdomen GI Exam: Soft, Non-Tender, Bowel Sounds Present, Non-Distended Musculoskeletal MS Exam: Joints Intact Integumentary Skin Exam: Warm, Intact Extremeties Extremities Exam: Pedal Pulses Palpable, Trace Edema Neurologic Neuro Exam: Alert, Awake, Oriented, Speech Clear, Moving All Extremities, No Focal Deficits Psychiatric Psych Exam: Appropriate Responses VTE Prophylaxis VTE Remarks Pradaxa Assessment/Plan Problem List: (1) Chest pressure (2) Hypertension (3) Acute on chronic renal insufficiency (4) Diabetes mellitus (5) Hypothyroidism (6) CAD (coronary artery disease) (7) Hyperlipidemia (8) Atrial fibrillation (9) Lymphedema Assessment/Plan cardiac enzymes negative BNP mildly elevated, no evidence of CHF appreciate card input, given one dose of Norvasc BP improving, still not optimal, continue with present meds Accu-Cheks a.c. and hs with sliding scale continue home meds Renal function improved Hx lymphedema, continue Lasix K okay Pradaxa for GI prophylaxis Poss dc today, will wait for card input D/W RN D/W Dr. Guthrie D/W pt This patient was seen by myself and Dr. Guthrie, this note is written on his behalf Problem Qualifiers (1) Hypertension: Qualified Code: I10 - Essential hypertension (2) Diabetes mellitus: Qualified Code: E11.8 - Type 2 diabetes mellitus with complication, without long-term current use of insulin (3) Hypothyroidism: Qualified Code: E03.9 - Hypothyroidism, unspecified type (4) CAD (coronary artery disease): Qualified Code: I25.118 - Coronary artery disease of [place] artery of [place] heart with stable angina pectoris (5) Hyperlipidemia: Qualified Code: E78.5 - Hyperlipidemia, unspecified hyperlipidemia type (6) Atrial fibrillation: Qualified Code: I48.91 - Atrial fibrillation, unspecified type Ruth Sosa May 07, 2017 08:37
[2017-05-07] MEDS ORDERED: DEXTROSE 50% IN WATER 50 ML VIAL(D50) IV PRN (08:45)
[2017-05-07] MEDS ORDERED: GLUCAGON 1 MG/ML VIAL OTHER PRN (08:45)
--- NOTE | 2017-05-07 08:46 | HHI.DCPOC ---
Discharge Care Plan Diagnosis: (1) Chest pressure Your Health Problems Are: Chest Pain Goals to Promote Your Health * To prevent worsening of your condition and complications * To maintain your health at the optimal level Directions to Meet Your Goals Take your medications as prescribed Follow your dietary instruction Follow activity as directed Keep your appointments as scheduled Take your immunizations and boosters as scheduled If your symptoms worsen call your PCP, if no PCP go to Urgent Care Center or Emergency Room Smoking is Dangerous to Your Health. Avoid second hand smoke Call the 24-hour hour crisis hotline for domestic abuse at Ruth Sosa [facility] May 07, 2017 08:46
[2017-05-07] MEDS ORDERED: PANTOPRAZOLE SOD 20 MG DELAYED RELEASE TAB PO SCH (09:00)
[2017-05-07] MEDS ORDERED: TRIAMTERENE/HCTZ 75 MG/50 MG TAB PO SCH (09:00)
[2017-05-07] MEDS ORDERED: FUROSEMIDE 20 MG TAB PO SCH (09:00)
[2017-05-07] MEDS: DABIGATRAN ETEXILATE 150 MG CAP PO SCH (09:03)
[2017-05-07] MEDS: SODIUM CHLORIDE 0.9% FLUSH 10 ML FLUSH IV FLUSH SCH (09:03)
[2017-05-07] MEDS: DOCUSATE SODIUM 50 MG/SENNA 8.6 MG TAB PO SCH (09:04)
[2017-05-07] MEDS ORDERED: INSULIN ASPART SUPPLEMENTAL SCALE SQ SCH (11:00)
[2017-05-07 11:04] VITALS: BP 133/65; PULSE 80; RESP 16; TEMP 98; O2SAT 95
[2017-05-07] MEDS ORDERED: AMLO5TAB2 PO (11:24)
[2017-05-07] MEDS: ACETAMINOPHEN 325 MG TAB PO PRN (11:36)
== END 2017-05-07 13:56 | disposition home or self-care (01) ==
LOC: NEPE 08:46 → NEDA 11:09 → NEPHCDU 14:21
PROVIDERS: ADMIT Specialist; ATTEND Specialist
DX: R07.89 Other chest pain (principal); R06.02 Shortness of breath; I48.91 Unspecified atrial fibrillation; F41.9 Anxiety disorder, unspecified; F32.9 Major depressive disorder, single episode, unspecified; Z95.1 Presence of aortocoronary bypass graft; E78.5 Hyperlipidemia, unspecified; E78.00 Pure hypercholesterolemia, unspecified; K21.9 Gastro-esophageal reflux disease without esophagitis; G47.30 Sleep apnea, unspecified; E11.42 Type 2 diabetes mellitus with diabetic polyneuropathy; H40.9 Unspecified glaucoma; E03.9 Hypothyroidism, unspecified; F12.90 Cannabis use, unspecified, uncomplicated; E87.1 Hypo-osmolality and hyponatremia; E11.65 Type 2 diabetes mellitus with hyperglycemia; N17.9 Acute kidney failure, unspecified; I89.0 Lymphedema, not elsewhere classified; R94.31 Abnormal electrocardiogram [ECG] [EKG]; I73.9 Peripheral vascular disease, unspecified; I12.9 Hypertensive chronic kidney disease with stage 1 through stage 4 chronic kidney disease, or unspecified chronic kidney disease; N18.9 Chronic kidney disease, unspecified; Z79.4 Long term (current) use of insulin; Z79.01 Long term (current) use of anticoagulants; Z86.73 Personal history of transient ischemic attack (TIA), and cerebral infarction without residual deficits; Z79.84 Long term (current) use of oral hypoglycemic drugs; Z87.891 Personal history of nicotine dependence; Z79.899 Other long term (current) drug therapy
CPT/HCPCS: 71010; 80048; 80053; 82550; 82948; 83880; 84484; 85025; 93005; 96372; 99285; G0378; J1815

== ENCOUNTER 2017-11-16 16:48 | Emergency (ER) | payer OTHER ==
[~2017-11-16] VITALS: Ht 165.1 cm; Wt 96.0 kg
[~2017-11-16 16:48] MED LIST changes: +AMLO5TAB2 PO; -CEFU1TAB20 PO; -DOXY100C PO; -LEVO175T2 PO; +LEVO200T4 PO; -MUPI2OIN TOPICAL; -OMEP20TA PO; +OMEP20TA93 PO
[2017-11-16 16:52] VITALS: BP 185/79; PULSE 72; RESP 16; TEMP 98.5; O2SAT 97
[2017-11-16] MEDS ORDERED: BUME0.5T PO (17:17)
[2017-11-16] MEDS ORDERED: AZIT250T3 PO (18:19)
[2017-11-16] MEDS ORDERED: BENZ100 PO (18:19)
--- NOTE | 2017-11-16 18:19 | PD ---
HPI Chief Complaint: Cold / Flu Symptoms Time Seen by Provider: 17:44 Travel History International Travel<30 days: No Contact w/Intl Traveler<30days: No Traveled to known affect area: No History of Present Illness HPI This is a 62-year-old female here with flulike illness 5 days. She reports body aches, cough, subjective fevers. She reports she is fever free for the last 24 hours. She reports occasional colored sputum. Denies chest pain or shortness of breath. She reports she sought treatment today after her friend told her she could develop pneumonia. He has moderate. No aggravating or alleviating factors. PFSH Past Medical History Hx Anticoagulant Therapy: Yes (PRADAXA) Atrial Fibrillation: Yes (AFIB/AFLUTTER) Blood Disorders: No Anxiety: Yes Depression: Yes Heart Rhythm Problems: Yes (hx of a-fib) Cancer: No Cardiac Catheterization: Yes Cardiovascular Problems: Yes (HTN, CHOL, A. FIB) High Cholesterol: Yes Chest Pain: Yes (admitted with chest pain) Congestive Heart Failure: No Cerebrovascular Accident: Yes (TIA 2015) Coronary Artery Disease: Yes Diabetes: Yes Patient Takes Glucophage: No Diminished Hearing: No Endocrine: Yes Gastrointestinal Disorders: Yes (digestive issues;IBS) GERD: Yes Glaucoma: Yes Genitourinary: No Herniated Disk: Yes Hypertension: Yes Immune Disorder: No Implanted Vascular Access Dvce: No Medical other: Yes (hx of edema in legs) Musculoskeletal: No Neurologic: Yes (hx of TIA) Psychiatric: No Reproductive: No Respiratory: No Immunizations Current: Yes Pneumonia: Yes Sleep Apnea: Yes (NO CPAP) Thyroid Disease: Yes Triglycerides - High: Yes Ulcer: Yes (DUODENAL A TEENAGER) Tetanus Vaccination: < 5 Years Influenza Vaccination: No ?: Not Menopausal: Yes : 2 Para: 2 Past Surgical History Abdominal Surgery: Yes (UMBILICAL HERNIA REPAIR) Body Medical Devices: Clips in legs from bypass surgery Cardiac Surgery: Yes (CABG x 3: AGE 52) Coronary Artery Bypass Graft: Yes (TRIPLE BYPASS) Gynecologic Surgery: Yes (HYSTERECTOMY) Hysterectomy: Yes Tonsillectomy: Yes Other Surgery: Yes (HYSTERECTOMY.) Social History Alcohol Use: No Tobacco Use: No (QUIT: AGE 52) Substance Use: No Allergies-Medications (Allergen,Severity, Reaction): Coded Allergies: acetaminophen (Unverified Allergy, Mild, DIAPHORESIS AND NAUSEA, 11/16/17) TOLERATES PERCOCOT WELL codeine (Unverified Allergy, Mild, Nausea/Vomiting, 11/16/17) "I BREAK OUT IN A SWEAT AND VOMITING" hydrocodone (Unverified Allergy, Mild, DIAPHORESIS AND NAUSEA, 11/16/17) TOLERATES PERCOCOT WELL Uncoded Allergies: melon (Allergy, Severe, Anaphylaxis, 10/29/16) Reported Meds & Prescriptions Reported Meds & Active Scripts Active Tessalon Perles (Benzonatate) 100 Mg Cap 200 Mg PO TID PRN Azithromycin 250 Mg Tab 250 Mg PO DIRECTED Take 2 tabs (500 mg) on day 1 then 1 tab daily x 4 days. Reported Bumetanide Unknown Strength Tab Unknown Dose PO BID PRN Omeprazole 20 Mg Tab 20 Mg PO DAILY Levothyroxine (Levothyroxine Sodium) 200 Mcg Tab 200 Mcg PO DAILY Pravastatin 20 Mg Tab 20 Mg PO HS Triamterene-Hydrochlorothiazide 75-50 Mg Tab 1 Tab PO DAILY Pradaxa (Dabigatran) 150 Mg Cap 150 Mg PO BID Lantus Inj (Insulin Glargine) 1,000 Unit/10 Ml Vial 35 Units SQ BID Alprazolam 1 Mg Tab 1 Mg PO Q6H PRN Review of Systems Except as stated in HPI: all other systems reviewed are Neg General / Constitutional: Positive: Fever Eyes: No: Visual changes HENT: Positive: Congestion, No: Headaches Cardiovascular: No: Chest Pain or Discomfort Respiratory: Positive: Cough Gastrointestinal: No: Abdominal Pain Genitourinary: No: Dysuria Physical Exam Narrative GENERAL: Alert 62-year-old Female. Nontoxic appearing. SKIN: Warm and dry. No rash HEAD: Normocephalic. EYES: No injection or drainage. Ear/nose/throat: No TM erythema. Clear nasal discharge. Mild pharyngeal erythema without tonsillar hypertrophy or exudate. NECK: Supple. No meningismus. CARDIOVASCULAR: Regular rate and rhythm RESPIRATORY: Breath sounds equal bilaterally. No accessory muscle use. No wheezing or rales. Rhonchorous cough GASTROINTESTINAL: Abdomen soft, non-tender, nondistended. MUSCULOSKELETAL: No cyanosis, or edema. BACK: No CVA tenderness. Data Data Last Documented VS Vital Signs Date Time Temp Pulse Resp B/P (MAP) Pulse Ox O2 Delivery O2 Flow Rate FiO2 11/16/17 17:08 16 97 Room Air 11/16/17 16:52 98.5 72 185/79 (114) Orders Orders Ondansetron Odt (Zofran Odt) (11/16/17 18:30) [facility] Medical Decision Making Medical Screen Exam Complete: Yes Emergency Medical Condition: Yes Differential Diagnosis Influenza, bronchitis, pneumonia Narrative Course This is a 62-year-old female here with flulike symptoms for the last 5 days. She is now reporting a productive cough. She is nontoxic appearing. Her vital signs are stable. She appears well-hydrated. She does have a rhonchorous cough. Blood sugar is 156. She'll be treated with azithromycin for bronchitis. Diagnosis Primary Impression: Bronchitis Referrals: Primary Care Physician Additional Instructions: Antibiotics as directed. Ibuprofen as needed for fever and pain. Rest and stay well hydrated. Follow-up with the primary doctor Scripts Benzonatate (Tessalon Perles) 100 Mg Cap 200 MG PO TID Y for COUGH, #12 CAP 0 Refills Prov: Alena Johnson 11/16/17 Azithromycin (Azithromycin) 250 Mg Tab 250 MG PO DIRECTED for Infection, #6 TAB 0 Refills Take 2 tabs (500 mg) on day 1 then 1 tab daily x 4 days. Prov: Alena Johnson 11/16/17 Disposition: 01 DISCHARGE HOME Condition: Stable Alena Johnson Nov 16, 2017 18:19
[2017-11-16] MEDS ORDERED: ONDANSETRON ODT 4 MG TAB PO ONE (18:30)
== END 2017-11-16 19:08 | disposition home or self-care (01) ==
LOC: PHEFT 16:48
DX: J40 Bronchitis, not specified as acute or chronic (principal); I48.91 Unspecified atrial fibrillation; I48.92 Unspecified atrial flutter; F41.9 Anxiety disorder, unspecified; F32.9 Major depressive disorder, single episode, unspecified; I10 Essential (primary) hypertension; E78.00 Pure hypercholesterolemia, unspecified; E11.9 Type 2 diabetes mellitus without complications; Z86.73 Personal history of transient ischemic attack (TIA), and cerebral infarction without residual deficits
CPT/HCPCS: 99283

== ENCOUNTER 2017-12-02 14:09 | Emergency (ER) | payer OTHER ==
[~2017-12-02] VITALS: Ht 167.6 cm; Wt 100.4 kg
[~2017-12-02 14:09] MED LIST changes: -AMLO5TAB2 PO; +AZIT250T3 PO; +BENZ100 PO; +BUME0.5T PO; -FURO20TA PO; -METF500T PO
[2017-12-02 14:20] VITALS: BP 142/72; PULSE 69; RESP 18; TEMP 98.8; O2SAT 96
--- NOTE | 2017-12-02 16:03 | PD ---
HPI Chief Complaint: Cold / Flu Symptoms Time Seen by Provider: 15:41 Travel History International Travel<30 days: No Contact w/Intl Traveler<30days: No Traveled to known affect area: No History of Present Illness HPI 62-year-old female here with right rib pain after coughing episode yesterday. She reports that she was recently treated for influenza/bronchitis last week. She reports her symptoms have improved with the exception of a cough. He has pain with these inspiration and palpation of the right lateral ribs. Denies chest pain or shortness of breath. Symptoms severity is mild to moderate. Symptoms slightly alleviated with shallow breaths. PFSH Past Medical History Hx Anticoagulant Therapy: Yes (Pradaxa) Atrial Fibrillation: Yes (AFIB/AFLUTTER) Blood Disorders: No Anxiety: Yes Depression: Yes Heart Rhythm Problems: Yes (hx of a-fib) Cancer: No Cardiac Catheterization: Yes Cardiovascular Problems: Yes (HTN, CHOL, A. FIB) High Cholesterol: Yes Chest Pain: Yes (admitted with chest pain) Congestive Heart Failure: No Cerebrovascular Accident: Yes (TIA 2015) Coronary Artery Disease: Yes Diabetes: Yes Diminished Hearing: No Endocrine: Yes Gastrointestinal Disorders: Yes (digestive issues;IBS) GERD: Yes Glaucoma: Yes Genitourinary: No Herniated Disk: Yes Hypertension: Yes Immune Disorder: No Implanted Vascular Access Dvce: No Musculoskeletal: No Neurologic: Yes (hx of TIA) Psychiatric: No Reproductive: No Respiratory: No Immunizations Current: Yes Pneumonia: Yes Sleep Apnea: Yes (NO CPAP) Thyroid Disease: Yes Triglycerides - High: Yes Ulcer: Yes (DUODENAL A TEENAGER) ?: Not Menopausal: Yes : 2 Para: 2 Past Surgical History Abdominal Surgery: Yes (UMBILICAL HERNIA REPAIR) Body Medical Devices: Clips in legs from bypass surgery Cardiac Surgery: Yes (CABG x 3: AGE 52) Coronary Artery Bypass Graft: Yes (TRIPLE BYPASS) Gynecologic Surgery: Yes (HYSTERECTOMY) Hysterectomy: Yes Tonsillectomy: Yes Other Surgery: Yes (HYSTERECTOMY.) Social History Alcohol Use: No Tobacco Use: No (QUIT: AGE 52) Substance Use: No Allergies-Medications (Allergen,Severity, Reaction): Coded Allergies: benzonatate (Verified Allergy, Severe, DIZZINESS AND VISUAL DISTURBANCE, ) acetaminophen (Unverified Allergy, Mild, DIAPHORESIS AND NAUSEA, 12/02/17) TOLERATES PERCOCOT WELL codeine (Unverified Allergy, Mild, Nausea/Vomiting, 12/02/17) "I BREAK OUT IN A SWEAT AND VOMITING" hydrocodone (Unverified Allergy, Mild, DIAPHORESIS AND NAUSEA, 12/02/17) TOLERATES PERCOCOT WELL Uncoded Allergies: melon (Allergy, Severe, Anaphylaxis, 10/29/16) Reported Meds & Prescriptions Reported Meds & Active Scripts Active Reported Bumetanide Unknown Strength Tab Unknown Dose PO BID PRN Omeprazole 20 Mg Tab 20 Mg PO DAILY Levothyroxine (Levothyroxine Sodium) 200 Mcg Tab 200 Mcg PO DAILY Pravastatin 20 Mg Tab 20 Mg PO HS Triamterene-Hydrochlorothiazide 75-50 Mg Tab 1 Tab PO DAILY Pradaxa (Dabigatran) 150 Mg Cap 150 Mg PO BID Lantus Inj (Insulin Glargine) 1,000 Unit/10 Ml Vial 35 Units SQ BID Alprazolam 1 Mg Tab 1 Mg PO Q6H PRN Review of Systems Except as stated in HPI: all other systems reviewed are Neg General / Constitutional: No: Fever Eyes: No: Visual changes HENT: No: Headaches Cardiovascular: No: Chest Pain or Discomfort Respiratory: Positive: Cough, Pleuritic Pain Gastrointestinal: No: Abdominal Pain Genitourinary: No: Dysuria Musculoskeletal: No: Pain Physical Exam Narrative GENERAL: Alert and well-appearing 62-year-old female SKIN: Warm and dry. HEAD: Normocephalic. EYES: No injection or drainage. NECK: Supple. CARDIOVASCULAR: Regular rate and rhythm RESPIRATORY: Breath sounds equal bilaterally. No accessory muscle use. +TTP R lateral ribs. No crepitus or palpable fracture. Equal even chest rise GASTROINTESTINAL: Abdomen soft, non-tender, nondistended. MUSCULOSKELETAL: No cyanosis, or edema. BACK: Nontender without obvious deformity. No CVA tenderness. Data Data Last Documented VS Vital Signs Date Time Temp Pulse Resp B/P (MAP) Pulse Ox O2 Delivery O2 Flow Rate FiO2 12/02/17 14:20 98.8 69 18 142/72 (95) 96 Orders Orders Chest, Single Ap (12/02/17 ) MDM Medical Decision Making Medical Screen Exam Complete: Yes Emergency Medical Condition: Yes Differential Diagnosis Pneumothorax, rib fracture, pneumonia Narrative Course 62-year-old female here with right sided rib pain after coughing episode yesterday. She is nontoxic appearing. No respiratory distress. Clear and equal lung sounds bilaterally. Chest x-ray: No acute disease Discussed findings with patient. Given her multiple Risk factors and continued cough she'll be treated again for bronchitis. Follow-up the primary doctor. Of note patient is taking delsym at home without symptom improvement. She'll be prescribed promethazine DM Diagnosis Primary Impression: Bronchitis Referrals: Primary Care Physician Additional Instructions: Antibiotics as directed. Cough medication as needed. Follow-up the primary doctor. Return if he developed no worsening symptoms. Scripts Dextromethorphan-Promethazine Liq (Promethazine-Dextromethorphan Liq) 6.25-15 Mg /5 Ml Syrp 10 ML PO Q6HR Y for COUGH, #120 ML Prov: Alena Johnson 12/02/17 Levofloxacin (Levaquin) 500 Mg Tablet 500 MG PO DAILY for Infection for 7 Days, #7 TAB 0 Refills Prov: Alena Johnson 12/02/17 Disposition: 01 DISCHARGE HOME Condition: Stable Alena Johnson Dec 02, 2017 16:03
--- NOTE | 2017-12-02 16:33 | RADRPT ---
EXAM DATE/TIME: 12/02/2017 16:16 [facility] COMPARISON: CHEST SINGLE AP, May 06, 2017, 9:32. INDICATIONS : Right side chest and rib pain. Cough. MEDICAL HISTORY : Bronchitis. Hypertension. Diabetes. A-fib. TIA. SURGICAL HISTORY : CABG Umbilical hernia repair. Tonsillectomy. Discectomy. ENCOUNTER: Initial ACUITY: 2 days PAIN SCORE: 8/10 LOCATION: Right lower chest FINDINGS: A single view of the chest demonstrates the lungs to be symmetrically aerated without evidence of mas s, infiltrate or effusion. The cardiomediastinal contours are unremarkable and stable. Evidence of previous cardiothoracic disease. Osseous structures are intact. CONCLUSION: No acute disease. No significant change has occurred. Kalyan Abdalla MD on December 02, 2017 at 16:31 Board Certified Radiologist. This report was verified electronically.
[2017-12-02] MEDS ORDERED: PROMSYP3 PO (16:47)
[2017-12-02] MEDS ORDERED: LEVA500T33 PO (16:47)
== END 2017-12-02 16:57 | disposition home or self-care (01) ==
LOC: PHEFT 14:09
DX: J40 Bronchitis, not specified as acute or chronic (principal); I48.91 Unspecified atrial fibrillation; F32.9 Major depressive disorder, single episode, unspecified; I10 Essential (primary) hypertension; E78.00 Pure hypercholesterolemia, unspecified; E11.9 Type 2 diabetes mellitus without complications; E07.9 Disorder of thyroid, unspecified; Z87.891 Personal history of nicotine dependence; Z79.01 Long term (current) use of anticoagulants; Z86.73 Personal history of transient ischemic attack (TIA), and cerebral infarction without residual deficits; Z79.4 Long term (current) use of insulin
CPT/HCPCS: 71045; 99283

== ENCOUNTER 2018-05-24 23:00 | Inpatient (IN) ==
[2018-05-24] MEDS ORDERED: Azithromycin Inj 500 MG in Sodium Chlor 0.9% Inj 250 ML IV.SIG ONE (23:10)
[2018-05-24] MEDS ORDERED: Sod Chloride 0.9% Inj 1,000 ML IV.SIG SCH (23:15)
--- NOTE | 2018-05-24 23:33 | ED ---
HPI General Chief Complaint: Respiratory Symptoms Stated Complaint: SOB/n/v/d vomit has blood Time Seen by Provider: 05/24/18 23:18 Source: patient Limitations: other (Respiratory distress) History of Present Illness HPI Narrative: 63-year-old woman who returns to the ED with respiratory distress after being diagnosed with community-acquired pneumonia yesterday and sent home with azithromycin. Despite taking the azithromycin as prescribed were symptoms and breathing have worsened. She also describes a chest tightness throughout her entire chest that is worse with coughing. She feels unwell overall. History is limited by patient's respiratory distress. Related Data Home Medications Medication Instructions Recorded Confirmed alprazolam 1 mg PO HS 05/23/18 05/23/18 aspirin 81 mg PO DAILY 05/23/18 05/23/18 bumetanide 0.5 mg PO BID 05/23/18 05/23/18 dabigatran etexilate [Pradaxa] 150 mg PO BID 05/23/18 05/23/18 ergocalciferol (vitamin D2) 50,000 unit PO QWEEK 05/23/18 05/23/18 [Vitamin D2] insulin glargine [Lantus Solostar 36 unit SUB-Q DAILY 05/23/18 05/23/18 U-100 Insulin] levothyroxine 175 mcg PO DAILY 05/23/18 05/23/18 pravastatin 20 mg PO DAILY 05/23/18 05/23/18 triamterene-hydrochlorothiazid 1 tab PO DAILY 05/23/18 05/23/18 Previous Rx's Medication Instructions Recorded azithromycin 500 mg PO DAILY 7 Days #7 tab 05/23/18 Allergies Allergy/AdvReac Type Severity Reaction Status Date / Time benzonatate Allergy Severe DIZZINESS Verified 05/23/18 10:39 AND VISUAL DISTURBANCE acetaminophen Allergy Mild DIAPHORESIS Verified 05/23/18 10:39 AND NAUSEA codeine Allergy Mild Nausea/Vomi Verified 05/23/18 10:39 ting hydrocodone Allergy Mild DIAPHORESIS Verified 05/23/18 10:39 AND NAUSEA melon Allergy Severe Anaphylaxis Uncoded 10/29/16 17:42 Review of Systems ROS: all other systems reviewed are negative [facility] Medical History Medical History Anxiety (Acute) Atrial fibrillation (Acute) CAD (coronary artery disease) (Acute) Diabetes 1.5, managed as type 1 (Acute) H/O: hysterectomy (Acute) Hypertension (Acute) Hypothyroid (Acute) Surgical History Surgical History H/O discectomy (Acute) Hx of tonsillectomy (Acute) S/P triple vessel bypass (Acute) Social History Social History Substance History: Active Abuse Second Hand Smoke Exposure: No Smoking Status: Former smoker How Often Do You Have a Drink Containing Alcohol: Never Recent Travel in [facility] within the Last 8 Weeks: No Recent Out of Country Travel within the Last 8 Weeks: No Exam Narrative Exam Narrative: GENERAL: 63-year-old woman seated on stretcher who appears to be in moderate distress related to difficulty breathing. No companions at bedside with patient. SKIN: Focused skin assessment warm/dry. HEAD: Atraumatic. Normocephalic. EYES: Pupils equal and round. No scleral icterus. No injection or drainage. ENT: No nasal bleeding or discharge. Mucous membranes pink and moist. NECK: Trachea midline. No JVD. CARDIOVASCULAR: Regular rate and rhythm. No murmur appreciated. RESPIRATORY: Increased work of breathing. Tachypnea. Accessory muscle use. Faint wheezes bilaterally breath sounds equal bilaterally. GASTROINTESTINAL: Abdomen soft, non-tender, nondistended. Hepatic and splenic margins not palpable. Obese abdomen. MUSCULOSKELETAL: No obvious deformities. No clubbing. No cyanosis. No edema. Trace nonpitting pedal edema bilaterally. NEUROLOGICAL: Awake and alert. No obvious cranial nerve deficits. Motor grossly within normal limits. Normal speech. PSYCHIATRIC: Anxiety related to respiratory distress. Course Reevaluation(s) Reevaluation #1: Patient this must be much more comfortable from a respiratory standpoint. She is saturating in the low 90s while on 2 L nasal cannula. Time: 01:30 Consultations Consultation #1: Spoke with Dr. Abebe regarding the patient's case. She will admit for care of community-acquired pneumonia and hypoxemic respiratory failure. Time: 01:30 Initial Documented Vital Signs Temperature 98 F 05/24/18 23:29 Pulse Rate 70 05/24/18 23:29 Respiratory Rate 28 H 05/24/18 23:29 Blood Pressure 177/58 H 05/24/18 23:29 Pulse Oximetry 78 L 05/24/18 23:29 Last Documented Vital Signs Temperature 98 F 05/24/18 23:29 Pulse Rate 68 05/24/18 23:56 Respiratory Rate 20 05/24/18 23:56 Blood Pressure 177/58 H 05/24/18 23:29 Pulse Oximetry 100 05/24/18 23:50 Medical Decision Making MDM Narrative Medical decision making narrative: her respiratory distress improved significantly.63-year-old woman who returns after being diagnosed with community -acquired pneumonia in the same ED yesterday. Despite following treatment she has deteriorated. Upon arrival she was saturating in the high 70s to low 80s and required 6 L nasal cannula oxygen. With a course of breathing treatments her respiratory distress improved significantly. Given the rapidity of onset and the profound hypoxemia I was concerned for PE; however, patient claims that she had an allergic reaction to IV contrast in the past and therefore CT was deferred. Since she had improved so much I decided that it would be safe for her to have a VQ scan in the morning and I discussed this fact with Dr. ABEBE. She received ceftriaxone and azithromycin IV for treatment of her community- acquired pneumonia. Medical Screen Exam Complete: Yes Emergency Medical Condition: Yes Differential Diagnosis Differential Diagnosis: Community-acquired pneumonia, pneumothorax, mucous plugging, pulmonary embolus, acute heart failure, myocarditis, volume overload, bronchitis Medical Records Medical records reviewed: Yes I reviewed the patient's medical records. Lab Data Lab results reviewed: Yes I reviewed the patient's lab results. Result diagrams: 05/24/18 23:20 05/24/18 23:20 Lab Results 05/24/18 05/24/18 05/24/18 Range/Units 23:20 23:20 23:20 CBC w Diff Auto diff final WBC 7.0 (4.0-11.0) th/mm3 RBC 4.54 (4.00-5.30) mil/mm3 Hgb 12.5 (11.6-15.3) gm/dL Hct 36.1 (35.0-46.0) % MCV 79.6 L (80.0-100.0) fL MCH 27.5 (27.0-34.0) pg MCHC 34.5 (32.0-36.0) % RDW 14.6 (11.6-17.2) % Plt Count 194 (150-450) th/mm3 MPV 10.7 (7.0-11.0) fL Neut % (Auto) 89.3 H (16.0-70.0) % Lymph % (Auto) 6.4 L (9.0-44.0) % [place] % (Auto) 3.8 (0.0-8.0) % Eos % (Auto) 0.2 (0.0-4.0) % Baso % (Auto) 0.3 (0.0-2.0) % Neut # (Auto) 6.3 (1.8-7.7) th/mm3 Lymph # (Auto) 0.4 L (1.0-4.8) th/mm3 [place] # (Auto) 0.3 (0.0-0.9) th/mm3 Eos # (Auto) 0.0 (0.0-0.4) th/mm3 Baso # (Auto) 0.0 (0.0-0.2) th/mm3 WBC Differential . Differential Comment . PT 10.8 (9.8-11.6) sec INR 1.1 Ratio APTT 32.0 H (24.3-30.1) sec Puncture Site Patient Temperature O2 Saturation (90-100) % ABG pH (7.380-7.420) ABG pCO2 (38-42) mmHg ABG pO2 (61-120) mmHg ABG HCO3 (22-26) mmol/L ABG O2 Content (12.0-20.0) Vol % ABG Base Excess (-2-2) mmol/L ABG Methemoglobin (0-2) % Jose J Test Hemoglobin (12.0-16.0) G/DL Carboxyhemoglobin (0-4) % O2 Delivery Device Liter Flow L/M Inspired O2 % Critical Value Sodium 135 L (136-145) meq/L Potassium 3.7 (3.5-5.1) meq/L Chloride 99 (98-107) meq/L Carbon Dioxide 25.1 (21.0-32.0) meq/L Anion Gap 11 (5-15) meq/L BUN 19 H (7-18) mg/dL Creatinine 1.20 H (0.50-1.00) mg/dL Estimated GFR 46 L (>89) mL/min Random Glucose 170 H (74-106) mg/dL Lactic Acid (0.4-2.0) mmol/L Calcium 8.3 L (8.5-10.1) mg/dL Magnesium 1.8 (1.5-2.5) mg/dL Total Bilirubin 0.7 (0.2-1.0) mg/dL AST 40 H (15-37) U/L ALT 47 (10-53) U/L Alkaline Phosphatase 112 (45-117) U/L Total Protein 7.2 D (6.4-8.2) g/dL Albumin 3.0 L (3.4-5.0) g/dL 05/24/18 05/24/18 Range/Units 23:20 23:34 CBC w Diff WBC (4.0-11.0) th/mm3 RBC (4.00-5.30) mil/mm3 Hgb (11.6-15.3) gm/dL Hct (35.0-46.0) % MCV (80.0-100.0) fL MCH (27.0-34.0) pg MCHC (32.0-36.0) % RDW (11.6-17.2) % Plt Count (150-450) th/mm3 MPV (7.0-11.0) fL Neut % (Auto) (16.0-70.0) % Lymph % (Auto) (9.0-44.0) % [place] % (Auto) (0.0-8.0) % Eos % (Auto) (0.0-4.0) % Baso % (Auto) (0.0-2.0) % Neut # (Auto) (1.8-7.7) th/mm3 Lymph # (Auto) (1.0-4.8) th/mm3 [place] # (Auto) (0.0-0.9) th/mm3 Eos # (Auto) (0.0-0.4) th/mm3 Baso # (Auto) (0.0-0.2) th/mm3 WBC Differential Differential Comment PT (9.8-11.6) sec INR Ratio APTT (24.3-30.1) sec Puncture Site Right radial Patient Temperature 98.6 O2 Saturation 95 (90-100) % ABG pH 7.40 (7.380-7.420) ABG pCO2 36 L (38-42) mmHg ABG pO2 87 (61-120) mmHg ABG HCO3 22 (22-26) mmol/L ABG O2 Content 15.6 (12.0-20.0) Vol % ABG Base Excess -1.9 (-2-2) mmol/L ABG Methemoglobin 1.1 (0-2) % Jose J Test Present Hemoglobin 11.6 L (12.0-16.0) G/DL Carboxyhemoglobin 2.0 (0-4) % O2 Delivery Device Nasal cannula Liter Flow 6.00 L/M Inspired O2 45 % Critical Value No Sodium (136-145) meq/L Potassium (3.5-5.1) meq/L Chloride (98-107) meq/L Carbon Dioxide (21.0-32.0) meq/L Anion Gap (5-15) meq/L BUN (7-18) mg/dL Creatinine (0.50-1.00) mg/dL Estimated GFR (>89) mL/min Random Glucose (74-106) mg/dL Lactic Acid 1.6 (0.4-2.0) mmol/L Calcium (8.5-10.1) mg/dL Magnesium (1.5-2.5) mg/dL Total Bilirubin (0.2-1.0) mg/dL AST (15-37) U/L ALT (10-53) U/L Alkaline Phosphatase (45-117) U/L Total Protein (6.4-8.2) g/dL Albumin (3.4-5.0) g/dL Imaging Data Radiologist's impression: Chest X-Ray 05/24/18 23:10 CONCLUSION: Slight worsening right base and left upper lobe consolidation. ECG Data Attestation: I personally reviewed and interpreted this ECG as follows: Interpretation: Normal rate, no significant ST elevation or depression, no STEMI Discharge Plan Discharge Disposition Patient Disposition: 30 Still Patient Discharge Condition Condition: Fair Discharge Details Diagnosis: CAP (community acquired pneumonia), Acute respiratory failure with hypoxia Physicians Team ED Provider: Roberto Cordoba Primary Care Provider: Angelica Oro Attending Provider: Haley Abebe Status ED Status: Admitted Patient
[2018-05-24 23:39] LABS: Baso % (Auto) 0.3 % (0.0-2.0); Eos % (Auto) 0.2 % (0.0-4.0); Hematocrit 36.1 % (35.0-46.0); Hemoglobin 12.5 gm/dL (11.6-15.3); Lymph # (Auto) 0.4 th/mm3 (1.0-4.8); Lymph % (Auto) 6.4 % (9.0-44.0); Mean Corpuscular HGB Conc 34.5 % (32.0-36.0); Mean Corpuscular Hemoglobin 27.5 pg (27.0-34.0); Mean Corpuscular Volume 79.6 fL (80.0-100.0); Mean Platelet Volume 10.7 fL (7.0-11.0); Mono # (Auto) 0.3 th/mm3 (0.0-0.9); Mono % (Auto) 3.8 % (0.0-8.0); Neut # (Auto) 6.3 th/mm3 (1.8-7.7); Neut % (Auto) 89.3 % (16.0-70.0); Platelet Count 194 th/mm3 (150-450); Red Blood Count 4.54 mil/mm3 (4.00-5.30); Red Cell Distribution Width 14.6 % (11.6-17.2)
--- NOTE | 2018-05-24 23:39 | XR ---
EXAM DATE: 05/24/2018 11:28 PM EDT AGE/SEX: 63 years / Female INDICATIONS: Fever, cough. CLINICAL DATA: This is the patient's initial encounter. Patient reports that signs and symptoms have been present for 4 - 6 days and indicates a pain score of 0/10. MEDICAL/SURGICAL HISTORY: . Cardiovascular disease. Diabetes. Hypertension. Atrial fibrillation . . Umbilical hernia repair. Hysterectomy. CABG. COMPARISON: [facility], CHEST 2V PA&LAT, 05/23/2018. . FINDINGS: Bilateral infiltrate, most conspicuous right base and left upper lobe, again noted and both sides sameer ear slightly worse. No large effusion demonstrated. No pneumothorax. Heart size stable, upper limits of normal. Patient has had previous median sternotomy and coronary ar talia bypass graft operation. CONCLUSION: Slight worsening right base and left upper lobe consolidation. Electronically signed by: Woody Santos MD 05/24/2018 11:37 PM EDT
[2018-05-24 23:46] LABS: Chloride 99 meq/L (98-107); Potassium 3.7 meq/L (3.5-5.1); Sodium 135 meq/L (136-145)
[2018-05-24 23:49] LABS: Anion Gap 11 meq/L (5-15); Blood Urea Nitrogen 19 mg/dL (7-18); Calcium 8.3 mg/dL (8.5-10.1); Carbon Dioxide 25.1 meq/L (21.0-32.0); Glucose,Random 170 mg/dL (74-106); INR 1.1 Ratio; Magnesium 1.8 mg/dL (1.5-2.5); Prothrombin Time 10.8 sec (9.8-11.6)
[2018-05-24 23:52] LABS: Alanine Aminotransferase 47 U/L (10-53); Aspartate Aminotransferase 40 U/L (15-37); Glomerular Filtration Rate 46 mL/min (>89)
[2018-05-24 23:54] LABS: Total Protein 7.2 g/dL (6.4-8.2)
[2018-05-24 23:55] LABS: Alkaline Phosphatase 112 U/L (45-117)
[2018-05-24 23:58] LABS: ABG Base Excess -1.9 mmol/L (-2-2); ABG PCO2 36 mmHg (38-42); ABG PO2 87 mmHg (61-120)
[2018-05-25] MEDS ORDERED: Ibuprofen 600 MG Tablet PO ONE (01:13)
[2018-05-25] MEDS ORDERED: Bisacodyl 10 MG Supp RECTAL PRN (01:27)
--- NOTE | 2018-05-25 09:16 | P.HP ---
History of Present Illness Primary Care Physician: MACIEJ Camarena Chief Complaint: Shortness of breath History of Present Illness: This is a pleasant 63-year-old female patient with a known medical history of atrial fibrillation on anticoagulation, diabetes, hypothyroidism, hyperlipidemia and CAD with history of CABG who presented to the ED with complaints of shortness of breath. Patient states that she did present to the ER yesterday was diagnosed with community-acquired pneumonia and sent home on azithromycin. Over the course of the night she states that her symptoms worsened and she came back to the ED. Patient states that over the past 5 days she has had worsening shortness of breath especially with exertion, states that she has been sitting in the recliner the past few nights due to shortness of breath and inability to lay flat. She does admit to consistent dry cough. Patient does report of fever of 101 at home as well as chills. She has been sick to her stomach as well with 2 bouts of vomiting, and should be noted that patient did have some blood in her emesis. Patient denies any new medication changes. She does state that she has not taken her medications for the past couple days due to being sick. She does follow with hydrologic engineer Dr. Knight, has not seen him for a year now, plans to schedule an appointment soon. Patient denies any recent echocardiogram. Does not use home oxygen. - Diagnosis (1) CAP (community acquired pneumonia) (2) Acute respiratory failure with hypoxia Inpatient Certification: I certify that the inpatient services were ordered in accordance with Medicare regulations governing the order. This includes certification that hospital inpatient services are reasonable and necessary and in the case of services not specified as inpatient-only under 42 CFR 419.22(n), that they are appropriately provided as inpatient services in accordance to with the 2-midnight benchmark under 43 CFR 412.3(e) Estimated Total Length of Stay (Days): 2 Plans for Post Hospital Care: Not yet determined Review of Systems All other systems reviewed negative except as stated in HPI PMFSH - History History Provided By: Patient - Medical History Medical History: Medical History (Last Reviewed 05/25/18 @ 01:51 by Roberto Cordoba MD) Anxiety Atrial fibrillation CAD (coronary artery disease) Diabetes 1.5, managed as type 1 H/O: hysterectomy Hypertension Hypothyroid - Surgical History Surgical History: Surgical History (Last Reviewed 05/25/18 @ 01:51 by Roberto Cordoba MD) H/O discectomy Hx of tonsillectomy S/P triple vessel bypass - Family History Family History: Family History (Last Updated 05/25/18 @ 09:35 by Milka Trinidad) Mother Colon cancer - Tobacco History Second Hand Smoke Exposure: Yes Tobacco Use In Past 30 Days: No Smoking Status: Former smoker - Alcohol History How Often Do You Have a Drink Containing Alcohol: Never - Substance Use History Substance History: No History of Abuse - Substance Use Type Marijuana Status: Active Route Used: Inhalation Reason for Use: Get High - Travel History Recent Travel in the [place] Within the Last 8 Weeks: No Recent Travel Out of the Country Within the Last 8 Weeks: No - Immunization History Tetanus Immunization: Unsure Hx Influenza Vaccine This Season: No Medications and Allergies Active Medications: Active Medications Al Hydroxide/Mg Hydroxide (Milk Of Magnesia Liq) 30 ml PO Q12H PRN PRN Reason: Mild Constipation Albuterol (Duoneb Neb (Prn)) 1 ampul NEB Q4HR NEB PRN PRN Reason: SOB/WHEEZING Last Admin: 05/25/18 08:11 Dose: 1 ampul Bisacodyl (Dulcolax Supp) 10 mg RECTAL DAILY PRN PRN Reason: SEVERE CONSITIPATION Budesonide/Formoterol Fumarate (Symbicort 160/4.5 Mcg Inh) 2 puff INH BID TAWANDA Guaifenesin (Mucinex Er) 600 mg PO BID TAWANDA Sodium Chloride (Ns Inj) 1,000 mls @ 0 mls/hr IV.SIG BOLUS TAWANDA Last Infusion: 05/25/18 03:16 Dose: Infused Azithromycin 500 mg/ Sodium (Chloride) 250 mls @ 250 mls/hr IV.SIG Q24H TAWANDA Ceftriaxone Sodium 1,000 mg/ (Sodium Chloride) 100 mls @ 200 mls/hr IV.SIG Q24H TAWANDA Lactulose (Lactulose Liq) 30 ml PO DAILY PRN PRN Reason: SEVERE CONSITIPATION Ondansetron HCl (Zofran Inj) 4 mg IV.PUSH Q6H PRN PRN Reason: NAUSEA OR VOMITING Senna/Docusate Sodium (Syeda-Colace) 1 tab PO BID TAWANDA Sennosides (Senokot) 17.2 mg PO Q12H PRN PRN Reason: Moderate Constipation Allergies Allergy/AdvReac Type Severity Reaction Status Date / Time benzonatate Allergy Severe DIZZINESS Verified 05/23/18 10:39 AND VISUAL DISTURBANCE acetaminophen Allergy Mild DIAPHORESIS Verified 05/23/18 10:39 AND NAUSEA codeine Allergy Mild Nausea/Vomi Verified 05/23/18 10:39 ting hydrocodone Allergy Mild DIAPHORESIS Verified 05/23/18 10:39 AND NAUSEA melon Allergy Severe Anaphylaxis Uncoded 10/29/16 17:42 Home Medications Medication Instructions Recorded Confirmed Type alprazolam 1 mg PO HS 05/23/18 05/23/18 History aspirin 81 mg PO DAILY 05/23/18 05/23/18 History bumetanide 0.5 mg PO BID 05/23/18 05/23/18 History dabigatran etexilate [Pradaxa] 150 mg PO BID 05/23/18 05/23/18 History ergocalciferol (vitamin D2) 50,000 unit PO QWEEK 05/23/18 05/23/18 History [Vitamin D2] insulin glargine [Lantus Solostar 36 unit SUB-Q DAILY 05/23/18 05/23/18 History U-100 Insulin] levothyroxine 175 mcg PO DAILY 05/23/18 05/23/18 History pravastatin 20 mg PO DAILY 05/23/18 05/23/18 History triamterene-hydrochlorothiazid 1 tab PO DAILY 05/23/18 05/23/18 History Exam Vital signs: Vital Signs 05/24/18 23:29 05/24/18 23:30 05/24/18 23:50 Temperature 98 F Pulse Rate 70 90 Respiratory Rate 28 H 18 Blood Pressure 177/58 H 177/58 H Pulse Oximetry 78 L 100 05/24/18 23:56 05/25/18 00:24 05/25/18 03:30 Temperature Pulse Rate 68 80 Respiratory Rate 20 20 Blood Pressure 168/66 H Pulse Oximetry 98 05/25/18 04:00 05/25/18 05:05 05/25/18 07:54 Temperature 98.4 F Pulse Rate 71 75 Respiratory Rate 18 24 Blood Pressure 153/61 H Pulse Oximetry 96 98 05/25/18 08:13 Temperature Pulse Rate Respiratory Rate Blood Pressure Pulse Oximetry 96 Intake & Output 08/26/18 08/27/18 08/27/18 18:59 06:59 18:59 Intake Total 1590 / 1590 Balance 1590 / 1590 Weight 106.5 kg Intake: IV 1350 / 1350 Azithromycin Inj 500 MG In NS 250 / 250 Inj 250 ML @ 250 mls/hr IV.SIG ONCE ONE Rx#:[id number] NS Inj 1,000 ML @ Wide Open IV. 1000 / 1000 SIG BOLUS TAWANDA Rx#:[id number] Rocephin Inj 1,000 MG In NS Inj 100 / 100 100 ML @ 200 mls/hr IV.SIG ONCE ONE Rx#:[id number] Oral 240 / 240 Other: Date of Last Bowel Movement 05/19/18 Weight On Admission 48.308 kg Narrative: GENERAL: Well-developed, well-nourished patient in NAD. On supplemental O2 2 L nasal cannula. SKIN: Warm and dry. No rash. HEAD: Normocephalic. Atraumatic. EYES: Pupils equal and round. No scleral icterus. No injection or drainage. ENT: No nasal bleeding or discharge. Mucous membranes pink and moist. NECK: Supple. Trachea midline. CARDIOVASCULAR: Regular rate and rhythm. S1, S2 noted. No murmur appreciated. RESPIRATORY: No accessory muscle use. Crackles noted to posterior bilateral bases. Breath sounds equal bilaterally. GASTROINTESTINAL: Abdomen soft, non-tender, nondistended. Normoactive bowel sounds x4. MUSCULOSKELETAL: No obvious deformities. Extremities without clubbing, cyanosis , or edema. NEUROLOGICAL: Awake and alert. No obvious cranial nerve deficits. Motor grossly within normal limits. 5/5 muscle strength in bilateral upper and lower extremities. Normal speech. PSYCHIATRIC: Appropriate mood and affect; insight and judgment normal. Results - Labs CBC & Chem 7: 05/24/18 23:20 05/24/18 23:20 Labs: Laboratory Results - last 24 hr 05/24/18 05/24/18 05/24/18 23:20 23:20 23:20 CBC w Diff Auto diff final WBC 7.0 RBC 4.54 Hgb 12.5 Hct 36.1 MCV 79.6 L MCH 27.5 MCHC 34.5 RDW 14.6 Plt Count 194 MPV 10.7 Neut % (Auto) 89.3 H Lymph % (Auto) 6.4 L [place] % (Auto) 3.8 Eos % (Auto) 0.2 Baso % (Auto) 0.3 Neut # (Auto) 6.3 Lymph # (Auto) 0.4 L [place] # (Auto) 0.3 Eos # (Auto) 0.0 Baso # (Auto) 0.0 WBC Differential . Differential Comment . PT 10.8 INR 1.1 APTT 32.0 H Puncture Site Patient Temperature O2 Saturation ABG pH ABG pCO2 ABG pO2 ABG HCO3 ABG O2 Content ABG Base Excess ABG Methemoglobin Jose J Test Hemoglobin Carboxyhemoglobin O2 Delivery Device Liter Flow Inspired O2 Critical Value Sodium 135 L Potassium 3.7 Chloride 99 Carbon Dioxide 25.1 Anion Gap 11 BUN 19 H Creatinine 1.20 H Estimated GFR 46 L POC Glucose Random Glucose 170 H Lactic Acid Calcium 8.3 L Magnesium 1.8 Total Bilirubin 0.7 AST 40 H ALT 47 Alkaline Phosphatase 112 Total Protein 7.2 D Albumin 3.0 L 05/24/18 05/24/18 05/25/18 23:20 23:34 05:00 CBC w Diff WBC RBC Hgb Hct MCV MCH MCHC RDW Plt Count MPV Neut % (Auto) Lymph % (Auto) [place] % (Auto) Eos % (Auto) Baso % (Auto) Neut # (Auto) Lymph # (Auto) [place] # (Auto) Eos # (Auto) Baso # (Auto) WBC Differential Differential Comment PT INR APTT Puncture Site Right radial Patient Temperature 98.6 O2 Saturation 95 ABG pH 7.40 ABG pCO2 36 L ABG pO2 87 ABG HCO3 22 ABG O2 Content 15.6 ABG Base Excess -1.9 ABG Methemoglobin 1.1 Jose J Test Present Hemoglobin 11.6 L Carboxyhemoglobin 2.0 O2 Delivery Device Nasal cannula Liter Flow 6.00 Inspired O2 45 Critical Value No Sodium Potassium Chloride Carbon Dioxide Anion Gap BUN Creatinine Estimated GFR POC Glucose 178 H Random Glucose Lactic Acid 1.6 Calcium Magnesium Total Bilirubin AST ALT Alkaline Phosphatase Total Protein Albumin - Imaging Impressions Chest X-Ray 05/24/18 23:10 CONCLUSION: Slight worsening right base and left upper lobe consolidation. Caprini VTE Risk Assessment Caprini VTE Risk Assessment: Moderate/High Risk (score >= 2) Caprini Risk Assessment Model: Point Value = 1 Point Value = 2 Point Value = 3 Point Value = 5 Age 41-60 Minor surgery BMI > 25 kg/m2 Swollen legs Varicose veins or History of unexplained or recurrent spontaneous Oral contraceptives or hormone replacement Sepsis (< 1 month) Serious lung disease, including pneumonia (< 1 month) Abnormal pulmonary function Acute myocardial infarction Congestive heart failure (< 1 month) History of inflammatory bowel disease Medical patient at bed rest Age 61-74 Arthroscopic surgery Major open surgery (> 45 min) Laparoscopic surgery (> 45 min) Malignancy Confined to bed (> 72 hours) Immobilizing plaster cast Central venous access Age >= 75 History of VTE Family history of VTE Factor V Leiden Prothrombin [id number] Lupus anticoagulant Anticardiolipin antibodies Elevated serum homocysteine Heparin-induced thrombocytopenia Other congenital or acquired thrombophilia Stroke (< 1 month) Elective arthroplasty Hip, pelvis, or leg fracture Acute spinal cord injury (< 1 month) Prophylaxis Regimen: Total Risk Factor Score Risk Level Prophylaxis Regimen 0-1 Low Early ambulation 2 Moderate Order ONE of the following: *Sequential Compression Device (SCD) *Heparin 5000 units SQ BID 3-4 Higher Order ONE of the following medications: *Heparin 5000 units SQ TID *Enoxaparin/Lovenox 40 mg SQ daily (WT < 150 kg, CrCl > 30 mL/min) *Enoxaparin/Lovenox 30 mg SQ daily (WT < 150 kg, CrCl > 10-29 mL/min) *Enoxaparin/Lovenox 30 mg SQ BID (WT < 150 kg, CrCl > 30 mL/min) AND/OR *Sequential Compression Device (SCD) 5 or more Highest Order ONE of the following medications: *Heparin 5000 units SQ TID (Preferred with Epidurals) *Enoxaparin/Lovenox 40 mg SQ daily (WT < 150 kg, CrCl > 30 mL/min) *Enoxaparin/Lovenox 30 mg SQ daily (WT < 150 kg, CrCl > 10-29 mL/min) *Enoxaparin/Lovenox 30 mg SQ BID (WT < 150 kg, CrCl > 30 mL/min) AND *Sequential Compression Device (SCD) Assessment and Plan - Assessment (1) CAP (community acquired pneumonia) Code(s): J18.9 - Pneumonia, unspecified organism Status: Acute (2) Acute respiratory failure with hypoxia Code(s): J96.01 - Acute respiratory failure with hypoxia Status: Acute - Plan This is a 63-year-old female patient with: Community-acquired pneumonia with acute respiratory failure and hypoxia in need of supplemental O2 -Patient presented with shortness of breath and subjective fevers at home. -Does not meet sepsis criteria at this time. -CXR reviewed and showing possible left upper lobe consolidation as well as possible pulmonary edema. -Placed on IV Azithromycin and Ceftriaxone in ED. Switch to Levaquin PO. -Duonebs scheduled and as needed for shortness of breath. -Supplemental O2 as needed to keep sats >92%. -Blood cultures drawn and pending. Follow. -Monitor for fever, no leukocytosis. Monitor labs. Congestive heart failure in exacerbation, unspecified type -Presented with shortness of breath dewey with exertion, orthopnea and dry cough. Follows with Dr. Knight. Denies recent ECHO. -CXR reviewed, findings above. -Will place on Lasix 40 mg IV BID. Monitor intake and output closely. Fluid restriction. -ECHO ordered and pending. Follow. -Supplemental O2 as needed to keep O2 sats. Type 2 Diabetes mellitus, chronic -Patient takes long acting insulin at home. -ACCU check ACHS, sliding scale, cover as needed. -Start on Levemir BID. Follow blood sugar trends. -ADA diet. History of atrial fibrillation, on anticoagulation. -Will continue home Pradaxa. -D-dimer 0.63. Initially a CTA was ordered to rule out PE, patient has a severe allergy to contrast. -Dc'd CTA. Patient's Wells criteria is low with a score of 0. Patient is chronic anticoagulated and elevated d-dimer is unlikely secondary to PE, most likely reactive to acute CHF exacerbation. -Continue telemetry for now, monitor for any arrhythmias. Hypothyroidism, chronic: Will continue home levothyroxine. Hyperlipidemia, chronic: Will continue home statin. DVT prophylaxis: SCDs. Pradaxa. Discharge Planning: Await clinical improvement. Anticipate 2 days. (1) CAP (community acquired pneumonia) Qualifiers: Laterality: left Lung location: upper lobe of lung Qualified Code(s): J18.1 - Lobar pneumonia, unspecified organism
[2018-05-25] MEDS ORDERED: Dextrose 50% in Water 50 ML Vial IV.PUSH PRN (09:38)
[2018-05-25] MEDS: guaiFENesin 600 MG ER Tablet PO SCH ×2 (12:28→22:04)
[2018-05-25] MEDS: Senna/Docusate Sodium 8.6/50 MG Tablet PO SCH ×2 (12:28→22:04)
[2018-05-25] MEDS: Budesonide-Formoterol 160/4.5 MCG 6 GM Inhaler INH SCH ×2 (12:29→22:05)
[2018-05-25] MEDS: Insulin NovoLOG Aspart Correctional Sugar Inj SQ SCH ×3 (14:32→22:26)
[2018-05-25] MEDS: Captopril 12.5 MG Tablet PO SCH ×2 (15:51→17:27)
--- NOTE | 2018-05-25 17:50 | ECHRPT ---
Indication: HEART FAILURE CONCLUSIONS Normal left ventricular size. Wall thickness is normal. The left ventricular systolic function is normal with an estimated ejection fraction in the range of 60-65%. Trace mitral valve regurgitation. Aortic valve sclerosis is present. There is mild to moderate tricuspid valve regurgitation. The estimated pulmonary arterial pressure is 22 mmHg. BP: / HR: Rhythm: MEASUREMENTS (Male / Female) Normal Values Technical Quality: 2D ECHO LV Diastolic Diameter PLAX 4.8 cm 4.2 - 5.9 / 3.9 - 5.3 cm LV Systolic Diameter PLAX 3.4 cm IVS Diastolic Thickness 1.2 cm 0.6 - 1.0 / 0.6 - 0.9 cm LVPW Diastolic Thickness 0.8 cm 0.6 - 1.0 / 0.6 - 0.9 cm LV Relative Wall Thickness 0.4 RV Internal Dim ED PLAX 2.1 cm LA Systolic Diameter LX 4.7 cm 3.0 - 4.0 / 2.7 - 3.8 cm M-MODE AV Cusp Separation MM 2.1 cm DOPPLER Mitral E Point Velocity 135.0 cm/s Mitral A Point Velocity 116.0 cm/s Mitral E to A Ratio 1.2 TR Peak Velocity 172.0 cm/s TR Peak Gradient 11.8 mmHg Right Atrial Pressure 10.0 mmHg Pulmonary Artery Systolic Pressu 21.8 mmHg Right Ventricular Systolic Press 21.8 mmHg FINDINGS LEFT VENTRICLE Normal left ventricular size. Wall thickness is normal. The left ventricular systolic function is normal with an estimated ejection fraction in the range of 60-65%. RIGHT VENTRICLE Normal right ventricular size and systolic function. LEFT ATRIUM The left atrial size is normal. RIGHT ATRIUM The right atrial size is normal. ATRIAL SEPTUM Normal atrial septal thickness without atrial level shunting by limited color doppler interrogation. AORTA The aortic root and proximal ascending aorta are normal in size on limited imaging. MITRAL VALVE Trace mitral valve regurgitation. AORTIC VALVE Aortic valve sclerosis is present. TRICUSPID VALVE There is mild to moderate tricuspid valve regurgitation. The estimated pulmonary arterial pressure is 22 mmHg. PULMONARY VALVE No pulmonary valve regurgitation or stenosis. VESSELS The inferior vena cava is normal in size. PERICARDIUM No pericardial effusion. Raquel Wells MD, FACC (Electronically Signed) Final Date:25 May 2018 17:49
[2018-05-25] MEDS ORDERED: Captopril 12.5 MG Tablet PO SCH (18:00)
[2018-05-25] MEDS: Insulin Detemir Inj 1,000 UNIT/10 ML Vial SQ SCH (22:05)
[2018-05-25] MEDS ORDERED: Ibuprofen 600 MG Tablet PO PRN (22:13)
[2018-05-25] MEDS ORDERED: Azithromycin Inj 500 MG in Sodium Chlor 0.9% Inj 250 ML IV.SIG SCH (23:00)
[2018-05-26 06:15] LABS: Hematocrit 35.9 % (35.0-46.0); Mean Corpuscular HGB Conc 33.5 % (32.0-36.0); Mean Corpuscular Hemoglobin 26.5 pg (27.0-34.0); Mean Corpuscular Volume 79.3 fL (80.0-100.0); Mean Platelet Volume 10.6 fL (7.0-11.0); Platelet Count 194 th/mm3 (150-450); Red Blood Count 4.53 mil/mm3 (4.00-5.30); Red Cell Distribution Width 14.9 % (11.6-17.2); White Blood Count 10.1 th/mm3 (4.0-11.0)
[2018-05-26 06:23] LABS: Chloride 98 meq/L (98-107); Potassium 3.5 meq/L (3.5-5.1); Sodium 136 meq/L (136-145)
[2018-05-26 06:28] LABS: Calcium 8.1 mg/dL (8.5-10.1)
[2018-05-26 06:29] LABS: Albumin 2.7 g/dL (3.4-5.0); Anion Gap 8 meq/L (5-15); Blood Urea Nitrogen 17 mg/dL (7-18); Carbon Dioxide 29.7 meq/L (21.0-32.0); Glucose,Random 114 mg/dL (74-106)
[2018-05-26 06:32] LABS: Alanine Aminotransferase 42 U/L (10-53); Aspartate Aminotransferase 51 U/L (15-37); Glomerular Filtration Rate 50 mL/min (>89)
[2018-05-26 06:33] LABS: Total Protein 6.7 g/dL (6.4-8.2)
[2018-05-26 06:35] LABS: Alkaline Phosphatase 93 U/L (45-117)
[2018-05-26] MEDS: Levothyroxine 100 MCG Tablet PO SCH (06:35)
[2018-05-26] MEDS: levoFLOXacin 750 MG Tablet PO SCH (06:35)
[2018-05-26] MEDS: Levothyroxine 75 MCG Tablet PO SCH (06:35)
[2018-05-26 06:41] LABS: Lymphocytes 15 % (9-44); Monocytes 1 % (0-8)
[2018-05-26] MEDS: Insulin NovoLOG Aspart Correctional Sugar Inj SQ SCH ×4 (07:52→21:37)
[2018-05-26] MEDS: guaiFENesin 600 MG ER Tablet PO SCH ×2 (08:37→21:25)
[2018-05-26] MEDS: Captopril 12.5 MG Tablet PO SCH ×3 (08:38→17:03)
[2018-05-26] MEDS: Insulin Detemir Inj 1,000 UNIT/10 ML Vial SQ SCH ×2 (08:39→21:38)
[2018-05-26] MEDS: Budesonide-Formoterol 160/4.5 MCG 6 GM Inhaler INH SCH ×2 (08:40→21:26)
[2018-05-26] MEDS: Senna/Docusate Sodium 8.6/50 MG Tablet PO SCH ×2 (08:43→21:26)
[2018-05-26] MEDS ORDERED: Non-Formulary Drug (Levothyroxine [Levothyroxine] 175 MCG) PO SCH (09:00)
[2018-05-26] MEDS: Metoprolol Tartrate 25 MG Tablet PO SCH ×2 (10:24→21:25)
[2018-05-26] MEDS: MethylPREDNISolone Sod Succinate Inj 40 MG/ML Vial IV.PUSH SCH ×2 (10:24→17:03)
[2018-05-26] MEDS ORDERED: Acetaminophen 500 MG Tablet PO PRN (15:16)
--- NOTE | 2018-05-26 17:41 | P.PN ---
Subjective Interval history: 63-year-old female who is seen and examined today for follow-up on respiratory failure, pneumonia, fluid overload. Patient sitting in the chair with continued edema. She states that she still feels short of breath, is still experiencing difficulty in breathing. She indicates that this is where she is ever felt. Patient is continued to have fever with T-max 101.2. Vital signs still with significant hypertension. Physical Exam Vital signs: Vital Signs 05/25/18 17:35 05/25/18 19:42 05/25/18 20:00 Temperature 101.2 F H Pulse Rate 80 85 Respiratory Rate 22 16 Blood Pressure 197/66 H 170/75 H Pulse Oximetry 94 L 96 05/26/18 00:00 05/26/18 07:21 05/26/18 07:33 Temperature 100.0 F H Pulse Rate 76 67 Respiratory Rate 16 20 Blood Pressure 183/76 H Pulse Oximetry 94 L 98 93 L 05/26/18 08:00 05/26/18 12:00 05/26/18 13:00 Temperature 97.9 F 97.9 F Pulse Rate 67 73 60 Respiratory Rate 20 19 18 Blood Pressure 183/78 H 159/71 H Pulse Oximetry 92 L 96 97 Intake & Output 05/25/18 05/26/18 05/26/18 18:59 06:59 18:59 Intake Total 200 / 200 Output Total 900 / 900 Balance -700 / -700 Intake: Oral 200 / 200 Output: Urine 900 / 900 Other: Date of Last Bowel Movement 05/25/18 Narrative: GENERAL: Well-developed, well-nourished, in no acute distress. alert and orientated HEENT: Head is normocephalic without any lesions or masses noted. Facial features are symmetric. Eyes: Extraocular muscles are intact. Conjunctivae were clear. NECK: Supple without any masses. Trachea midline no deviation. No JVD, CARDIAC: Regular rhythm, regular rate. S1/S2 are heard. No murmurs gallops or rubs. LUNGS: Patient has a plethoric of lung sounds to include wheeze, rhonchi, rales throughout entire lung [place]. She is using accessory muscles on inspiration ABDOMEN: Soft, nontender. Nondistended. Bowel sounds heard in all 4 quadrants. No organomegaly or masses. Negative rebound, negative guarding EXTREMITIES: 2+ pitting edema noted bilateral lower extremities, pulses are equal bilaterally. No cyanosis or clubbing NEUROLOGY: Mood and affect appear appropriate. Cranial nerves II through XII grossly intact. Moving all extremities, speech is clear Results - Labs CBC & Chem 7: 05/26/18 05:42 05/26/18 05:42 Laboratory Results - last 24 hr 05/25/18 05/26/18 05/26/18 22:23 05:42 05:42 CBC w Diff Slide review pending WBC 10.1 RBC 4.53 Hgb 12.0 Hct 35.9 MCV 79.3 L MCH 26.5 L MCHC 33.5 RDW 14.9 Plt Count 194 MPV 10.6 WBC Differential Manual diff final Seg Neuts % (Manual) 81 H Band Neuts % (Manual) 3 Lymphocytes % (Manual) 15 Monocytes % (Manual) 1 Abs Neuts (Manual) 8.5 H Differential Comment . Sodium 136 Potassium 3.5 Chloride 98 Carbon Dioxide 29.7 Anion Gap 8 BUN 17 Creatinine 1.10 H Estimated GFR 50 L POC Glucose 195 H Random Glucose 114 H Calcium 8.1 L Total Bilirubin 0.7 AST 51 H ALT 42 Alkaline Phosphatase 93 Total Protein 6.7 Albumin 2.7 L 05/26/18 05/26/18 05/26/18 07:32 11:50 16:57 CBC w Diff WBC RBC Hgb Hct MCV MCH MCHC RDW Plt Count MPV WBC Differential Seg Neuts % (Manual) Band Neuts % (Manual) Lymphocytes % (Manual) Monocytes % (Manual) Abs Neuts (Manual) Differential Comment Sodium Potassium Chloride Carbon Dioxide Anion Gap BUN Creatinine Estimated GFR POC Glucose 114 H 139 H 240 H Random Glucose Calcium Total Bilirubin AST ALT Alkaline Phosphatase Total Protein Albumin Microbiology 05/24/18 23:20 Blood - Peripheral Aerobic Blood Culture - Preliminary No growth in 2 days 05/24/18 23:20 Blood - Peripheral Anaerobic Blood Culture - Preliminary No growth in 2 days 05/24/18 23:20 Blood - Peripheral Aerobic Blood Culture - Preliminary No growth in 2 days 05/24/18 23:20 Blood - Peripheral Anaerobic Blood Culture - Preliminary No growth in 2 days - Procedures ECHOCARDIOGRAM CONCLUSIONS Normal left ventricular size. Wall thickness is normal. The left ventricular systolic function is normal with an estimated ejection fraction in the range of 60-65%. Trace mitral valve regurgitation. Aortic valve sclerosis is present. There is mild to moderate tricuspid valve regurgitation. The estimated pulmonary arterial pressure is 22 mmHg. Assessment and Plan - Assessment (1) CAP (community acquired pneumonia) Code(s): J18.9 - Pneumonia, unspecified organism Status: Acute (2) Acute respiratory failure with hypoxia Code(s): J96.01 - Acute respiratory failure with hypoxia Status: Acute - Plan Sepsis -Patient meets criteria with febrile illness, tachycardia, pneumonia -Patient is on empirical antibiotics for community acquired pneumonia to include Zithromax, Rocephin -Influenza testing was negative -Blood cultures are negative for 2 days -Obtain urinalysis Acute hypoxic respiratory failure -Multifactorial with patient having community-acquired pneumonia, congestive heart failure, history of tobacco use and probable underlying COPD -Continue O2 supplementation to maintain O2 sats greater than 92% -Continue nebulizer treatments every 6 hours while awake and every 2 hours as needed -Start Solu-Medrol 40 mg IV every 8 hours Community-acquired pneumonia -CXR reviewed and showing possible left upper lobe consolidation as well as possible pulmonary edema. -Continue empirical antibiotics as above Congestive heart failure in exacerbation, unspecified type -Presented with shortness of breath dewey with exertion, orthopnea and dry cough. Follows with Dr. Knight. Kassie recent ECHO. -Continue on Lasix 40 mg IV BID. Monitor intake and output closely. Fluid restriction. -ECHO results as above Type 2 Diabetes mellitus, chronic -Accu-Cheks with sliding scale insulin -S continue Levemir BID. -ADA diet. History of atrial fibrillation, on anticoagulation. -Will continue home Pradaxa. -D-dimer 0.63. Unable to perform pulmonary angiogram secondary to contrast allergy. Patient's Wells criteria is low with a score of 0. Patient is chronic anticoagulated and elevated d-dimer is unlikely secondary to PE, Hypothyroidism, chronic: -Continue home levothyroxine. Hyperlipidemia, chronic: - continue home statin. DVT prophylaxis: -Sequential compression devices, Pradaxa. (1) CAP (community acquired pneumonia) Qualifiers: Laterality: left Lung location: upper lobe of lung Qualified Code(s): J18.1 - Lobar pneumonia, unspecified organism
[2018-05-27] MEDS: MethylPREDNISolone Sod Succinate Inj 40 MG/ML Vial IV.PUSH SCH ×3 (02:07→17:08)
[2018-05-27] MEDS: Levothyroxine 100 MCG Tablet PO SCH (06:10)
[2018-05-27] MEDS: Levothyroxine 75 MCG Tablet PO SCH (06:10)
[2018-05-27 07:01] LABS: Baso % (Auto) 0.3 % (0.0-2.0); Eos % (Auto) 0.8 % (0.0-4.0); Hematocrit 36.4 % (35.0-46.0); Hemoglobin 12.1 gm/dL (11.6-15.3); Lymph # (Auto) 0.5 th/mm3 (1.0-4.8); Lymph % (Auto) 13.9 % (9.0-44.0); Mean Corpuscular HGB Conc 33.2 % (32.0-36.0); Mean Corpuscular Volume 81.2 fL (80.0-100.0); Mean Platelet Volume 10.1 fL (7.0-11.0); Mono # (Auto) 0.2 th/mm3 (0.0-0.9); Mono % (Auto) 4.4 % (0.0-8.0); Neut % (Auto) 80.6 % (16.0-70.0); Platelet Count 175 th/mm3 (150-450); Red Blood Count 4.49 mil/mm3 (4.00-5.30); White Blood Count 3.7 th/mm3 (4.0-11.0)
[2018-05-27 07:06] LABS: Potassium 3.6 meq/L (3.5-5.1)
[2018-05-27 07:10] LABS: Calcium 8.3 mg/dL (8.5-10.1)
[2018-05-27 07:20] LABS: Carbon Dioxide 31.7 meq/L (21.0-32.0)
[2018-05-27 08:03] LABS: Bilirubin,Urine Negative (Negative); Clarity,Urine Clear (Clear); Color,Urine Yellow (Yellw/Straw); Glucose,Urine (UA) 100 mg/dL (Negative); Leukocyte Esterase,Urine Trace (Negative); Nitrite,Urine Negative (Negative); Urobilinogen,Urine 0.2 mg/dL (Less than 2)
[2018-05-27] MEDS: Insulin Detemir Inj 1,000 UNIT/10 ML Vial SQ SCH ×2 (08:04→21:38)
[2018-05-27] MEDS: Captopril 12.5 MG Tablet PO SCH ×3 (08:04→17:08)
[2018-05-27] MEDS: Insulin NovoLOG Aspart Correctional Sugar Inj SQ SCH ×4 (08:04→21:39)
[2018-05-27] MEDS: Metoprolol Tartrate 25 MG Tablet PO SCH ×2 (08:06→21:38)
[2018-05-27] MEDS: guaiFENesin 600 MG ER Tablet PO SCH ×2 (08:06→21:38)
[2018-05-27] MEDS: levoFLOXacin 750 MG Tablet PO SCH (08:06)
[2018-05-27] MEDS: Senna/Docusate Sodium 8.6/50 MG Tablet PO SCH ×2 (08:07→21:38)
[2018-05-27] MEDS: Budesonide-Formoterol 160/4.5 MCG 6 GM Inhaler INH SCH ×2 (08:07→21:37)
[2018-05-27 08:15] LABS: WBC,Urine 0-5 /hpf (0-5)
[2018-05-27 08:16] LABS: Bacteria,Urine Occasional /hpf; Squamous Epithelial Cell,Urine Greater than 10 /hpf (0-5)
--- NOTE | 2018-05-27 08:38 | P.PN ---
Subjective Interval history: 63-year-old female who is seen and examined today in follow-up for pneumonia, fluid overload, possible COPD. Patient is improving. States that she is feeling better. Patient has had reduction of use of O2 supplementation. Airway is improving. Vital signs are stable. Patient remains afebrile. Physical Exam Vital signs: Vital Signs 05/26/18 12:00 05/26/18 13:00 05/26/18 16:00 Temperature 97.9 F 99.7 F H Pulse Rate 73 60 71 Respiratory Rate 19 18 19 Blood Pressure 159/71 H 147/99 H Pulse Oximetry 96 97 96 05/26/18 19:55 05/26/18 20:00 05/26/18 23:57 Temperature 97.6 F 97.4 F L Pulse Rate 64 65 56 L Respiratory Rate 20 18 18 Blood Pressure 123/56 L 117/57 L Pulse Oximetry 96 95 97 05/27/18 07:25 Temperature Pulse Rate 54 L Respiratory Rate 18 Blood Pressure Pulse Oximetry 97 Intake & Output 05/26/18 05/27/18 05/27/18 18:59 06:59 18:59 Intake Total 960 / 960 240 / 240 Balance 960 / 960 240 / 240 Weight 106.7 kg Intake: Oral 960 / 960 240 / 240 Other: # Voids 5 3 Date of Last Bowel Movement 05/24/18 # Bowel Movements 0 Narrative: GENERAL: Well-developed, well-nourished, in no acute distress. alert and orientated HEENT: Head is normocephalic without any lesions or masses noted. Facial features are symmetric. Eyes: Extraocular muscles are intact. Conjunctivae were clear. NECK: Supple without any masses. Trachea midline no deviation. No JVD, CARDIAC: Regular rhythm, regular rate. S1/S2 are heard. No murmurs gallops or rubs. LUNGS: Patient still has some mild coarse rales noted in the bases. Wheezing in the upper airway is improving. Patient still with rhonchi.. No use of accessory muscles on inspiration or expiration ABDOMEN: Soft, nontender. Nondistended. Bowel sounds heard in all 4 quadrants. No organomegaly or masses. Negative rebound, negative guarding EXTREMITIES: 1+ pitting edema noted bilateral lower extremities, pulses are equal bilaterally. No cyanosis or clubbing NEUROLOGY: Mood and affect appear appropriate. Cranial nerves II through XII grossly intact. Moving all extremities, speech is clear Results - Labs CBC & Chem 7: 05/27/18 05:45 05/27/18 05:45 Laboratory Results - last 24 hr 05/26/18 05/26/18 05/26/18 11:50 16:57 21:28 CBC w Diff WBC RBC Hgb Hct MCV MCH MCHC RDW Plt Count MPV Neut % (Auto) Lymph % (Auto) [place] % (Auto) Eos % (Auto) Baso % (Auto) Neut # (Auto) Lymph # (Auto) [place] # (Auto) Eos # (Auto) Baso # (Auto) WBC Differential Differential Comment Sodium Potassium Chloride Carbon Dioxide Anion Gap BUN Creatinine Estimated GFR POC Glucose 139 H 240 H 289 H Random Glucose Calcium B-Natriuretic Peptide Ur Collection Type Urine Color Urine Clarity Urine pH Ur Specific Burkett Urine Protein Urine Glucose (UA) Urine Ketones Urine Occult Blood Urine Nitrate Urine Bilirubin Urine Urobilinogen Ur Leukocyte Esterase Urine RBC Urine WBC Ur Squamous Epith Cells Urine Bacteria Urine Yeast Micro UA Comment Ur Microscopic Review Urine Culture Comments 05/27/18 05/27/18 05/27/18 05:45 05:45 05:45 CBC w Diff Auto diff final WBC 3.7 L RBC 4.49 Hgb 12.1 Hct 36.4 MCV 81.2 MCH 27.0 MCHC 33.2 RDW 14.0 Plt Count 175 MPV 10.1 Neut % (Auto) 80.6 H Lymph % (Auto) 13.9 [place] % (Auto) 4.4 Eos % (Auto) 0.8 Baso % (Auto) 0.3 Neut # (Auto) 3.0 Lymph # (Auto) 0.5 L [place] # (Auto) 0.2 Eos # (Auto) 0.0 Baso # (Auto) 0.0 WBC Differential . Differential Comment . Sodium 134 L Potassium 3.6 Chloride 94 L Carbon Dioxide 31.7 Anion Gap 8 BUN 23 H Creatinine 1.10 H Estimated GFR 50 L POC Glucose Random Glucose 219 H D Calcium 8.3 L B-Natriuretic Peptide 276 H Ur Collection Type Urine Color Urine Clarity Urine pH Ur Specific Burkett Urine Protein Urine Glucose (UA) Urine Ketones Urine Occult Blood Urine Nitrate Urine Bilirubin Urine Urobilinogen Ur Leukocyte Esterase Urine RBC Urine WBC Ur Squamous Epith Cells Urine Bacteria Urine Yeast Micro UA Comment Ur Microscopic Review Urine Culture Comments 05/27/18 05/27/18 07:42 07:50 CBC w Diff WBC RBC Hgb Hct MCV MCH MCHC RDW Plt Count MPV Neut % (Auto) Lymph % (Auto) [place] % (Auto) Eos % (Auto) Baso % (Auto) Neut # (Auto) Lymph # (Auto) [place] # (Auto) Eos # (Auto) Baso # (Auto) WBC Differential Differential Comment Sodium Potassium Chloride Carbon Dioxide Anion Gap BUN Creatinine Estimated GFR POC Glucose 237 H Random Glucose Calcium B-Natriuretic Peptide Ur Collection Type Clean catch Urine Color Yellow Urine Clarity Clear Urine pH 6.0 Ur Specific Burkett 1.020 Urine Protein 100 H Urine Glucose (UA) 100 H Urine Ketones Negative Urine Occult Blood Moderate H Urine Nitrate Negative Urine Bilirubin Negative Urine Urobilinogen 0.2 Ur Leukocyte Esterase Trace H Urine RBC 4-15 H Urine WBC 0-5 Ur Squamous Epith Cells Greater than 10 H Urine Bacteria Occasional H Urine Yeast Few H Micro UA Comment Culture not ind Ur Microscopic Review Microscopic reviewed Urine Culture Comments Culture not ind Microbiology 05/24/18 23:20 Blood - Peripheral Aerobic Blood Culture - Preliminary No growth in 2 days 05/24/18 23:20 Blood - Peripheral Anaerobic Blood Culture - Preliminary No growth in 2 days 05/24/18 23:20 Blood - Peripheral Aerobic Blood Culture - Preliminary No growth in 2 days 05/24/18 23:20 Blood - Peripheral Anaerobic Blood Culture - Preliminary No growth in 2 days - Procedures ECHOCARDIOGRAM CONCLUSIONS Normal left ventricular size. Wall thickness is normal. The left ventricular systolic function is normal with an estimated ejection fraction in the range of 60-65%. Trace mitral valve regurgitation. Aortic valve sclerosis is present. There is mild to moderate tricuspid valve regurgitation. The estimated pulmonary arterial pressure is 22 mmHg. Assessment and Plan - Assessment (1) CAP (community acquired pneumonia) Code(s): J18.9 - Pneumonia, unspecified organism Status: Acute (2) Acute respiratory failure with hypoxia Code(s): J96.01 - Acute respiratory failure with hypoxia Status: Acute - Plan Sepsis, resolved -Patient meets criteria with febrile illness, tachycardia, pneumonia -Patient is on empirical antibiotics for community acquired pneumonia to include Zithromax, Rocephin -Influenza testing was negative -Blood cultures are negative for 2 days -Urinalysis was clear Acute hypoxic respiratory failure, improving -Multifactorial with patient having community-acquired pneumonia, congestive heart failure, history of tobacco use and probable underlying COPD -Continue O2 supplementation to maintain O2 sats greater than 92% -Continue nebulizer treatments every 6 hours while awake and every 2 hours as needed -Continue Solu-Medrol 40 mg IV every 8 hours Community-acquired pneumonia -CXR reviewed and showing possible left upper lobe consolidation as well as possible pulmonary edema. -Continue empirical antibiotics as above Acute diastolic congestive heart failure, improving -Presented with shortness of breath dewey with exertion, orthopnea and dry cough. Follows with Dr. Jamidar. Fernando recent ECHO. -Continue on Lasix 40 mg IV BID. Monitor intake and output closely. Fluid restriction. -ECHO results as above Type 2 Diabetes mellitus, chronic -Accu-Cheks with sliding scale insulin -Continue Levemir BID. -ADA diet. History of atrial fibrillation, on anticoagulation. -Will continue home Pradaxa. -D-dimer 0.63. Unable to perform pulmonary angiogram secondary to contrast allergy. Patient's Wells criteria is low with a score of 0. Patient is chronic anticoagulated and elevated d-dimer is unlikely secondary to PE, Hypothyroidism, chronic: -Continue home levothyroxine. Hyperlipidemia, chronic: - continue home statin. DVT prophylaxis: -Sequential compression devices, Pradaxa. Discharge Planning: Anticipate discharge 05/28/18 if continues to improve (1) CAP (community acquired pneumonia) Qualifiers: Laterality: left Lung location: upper lobe of lung Qualified Code(s): J18.1 - Lobar pneumonia, unspecified organism
[2018-05-28] MEDS: MethylPREDNISolone Sod Succinate Inj 40 MG/ML Vial IV.PUSH SCH ×3 (02:31→17:09)
[2018-05-28] MEDS: Levothyroxine 75 MCG Tablet PO SCH (06:14)
[2018-05-28] MEDS: Levothyroxine 100 MCG Tablet PO SCH (06:14)
[2018-05-28] MEDS: Insulin NovoLOG Aspart Correctional Sugar Inj SQ SCH ×4 (08:12→21:46)
[2018-05-28] MEDS: Insulin Detemir Inj 1,000 UNIT/10 ML Vial SQ SCH ×2 (08:13→21:46)
[2018-05-28] MEDS: levoFLOXacin 750 MG Tablet PO SCH (08:15)
[2018-05-28] MEDS: Senna/Docusate Sodium 8.6/50 MG Tablet PO SCH ×2 (08:15→21:43)
[2018-05-28] MEDS: guaiFENesin 600 MG ER Tablet PO SCH ×2 (08:15→21:43)
[2018-05-28] MEDS: Metoprolol Tartrate 25 MG Tablet PO SCH ×2 (08:16→21:43)
[2018-05-28] MEDS: Budesonide-Formoterol 160/4.5 MCG 6 GM Inhaler INH SCH ×2 (08:16→21:43)
[2018-05-28] MEDS: Captopril 12.5 MG Tablet PO SCH ×2 (08:17→14:02)
[2018-05-28] MEDS ORDERED: guaiFENesin/Dextromethorphan 200 MG/20 MG 10 ML UDC PO PRN (14:39)
--- NOTE | 2018-05-28 14:44 | P.PN ---
Subjective Interval history: 63-year-old female who is seen and examined hypoxic respiratory failure. Patient states that she still does not feel that she is doing that well today. She was feeling better yesterday but she still have a lot of cough today and very scared to go home. Vital signs are stable. Patient afebrile. Physical Exam Vital signs: Vital Signs 05/27/18 15:15 05/27/18 16:00 05/27/18 19:50 Temperature 97.5 F L Pulse Rate 63 62 60 Respiratory Rate 20 20 20 Blood Pressure 136/62 Pulse Oximetry 91 L 96 05/27/18 20:00 05/28/18 00:00 05/28/18 07:45 Temperature 97.8 F 96.3 F L Pulse Rate 52 L 59 L 50 L Respiratory Rate 20 20 16 Blood Pressure 152/72 H 141/65 H Pulse Oximetry 99 97 95 05/28/18 09:04 05/28/18 12:42 05/28/18 14:31 Temperature 96.1 F L 96.3 F L Pulse Rate 53 L 53 L 54 L Respiratory Rate 16 15 16 Blood Pressure 180/77 H 191/75 H Pulse Oximetry 97 98 98 Intake & Output 05/27/18 05/28/18 05/28/18 18:59 06:59 18:59 Intake Total 720 / 720 720 / 720 Output Total 1200 / 1200 Balance -480 / -480 720 / 720 Weight 104.7 kg Intake: Oral 720 / 720 720 / 720 Output: Urine 1200 / 1200 Other: # Voids 2 4 Date of Last Bowel Movement 05/24/18 # Bowel Movements 0 Narrative: GENERAL: Well-developed, well-nourished, in no acute distress. alert and orientated HEENT: Head is normocephalic without any lesions or masses noted. Facial features are symmetric. Eyes: Extraocular muscles are intact. Conjunctivae were clear. NECK: Supple without any masses. Trachea midline no deviation. No JVD, CARDIAC: Regular rhythm, regular rate. S1/S2 are heard. No murmurs gallops or rubs. LUNGS: Diminished breath sounds noted throughout. Does have some mild wheezing noted in upper airways. No rhonchi or rales. No use of accessory muscles on inspiration or expiration ABDOMEN: Soft, nontender. Nondistended. Bowel sounds heard in all 4 quadrants. No organomegaly or masses. Negative rebound, negative guarding EXTREMITIES: 1+ pitting edema noted bilateral lower extremities, pulses are equal bilaterally. No cyanosis or clubbing NEUROLOGY: Mood and affect appear appropriate. Cranial nerves II through XII grossly intact. Moving all extremities, speech is clear Results - Labs CBC & Chem 7: 05/27/18 05:45 05/27/18 05:45 Laboratory Results - last 24 hr 05/27/18 05/27/18 05/28/18 16:39 21:36 07:48 POC Glucose 300 H 254 H 180 H 05/28/18 11:23 POC Glucose 233 H Microbiology 05/24/18 23:20 Blood - Peripheral Aerobic Blood Culture - Preliminary No growth in 4 days 05/24/18 23:20 Blood - Peripheral Anaerobic Blood Culture - Preliminary No growth in 4 days 05/24/18 23:20 Blood - Peripheral Aerobic Blood Culture - Preliminary No growth in 4 days 05/24/18 23:20 Blood - Peripheral Anaerobic Blood Culture - Preliminary No growth in 4 days - Procedures ECHOCARDIOGRAM CONCLUSIONS Normal left ventricular size. Wall thickness is normal. The left ventricular systolic function is normal with an estimated ejection fraction in the range of 60-65%. Trace mitral valve regurgitation. Aortic valve sclerosis is present. There is mild to moderate tricuspid valve regurgitation. The estimated pulmonary arterial pressure is 22 mmHg. Assessment and Plan - Assessment (1) CAP (community acquired pneumonia) Code(s): J18.9 - Pneumonia, unspecified organism Status: Acute (2) Acute respiratory failure with hypoxia Code(s): J96.01 - Acute respiratory failure with hypoxia Status: Acute - Plan Sepsis, resolved -Patient meets criteria on admission with febrile illness, tachycardia, pneumonia -Patient is on empirical antibiotics for community acquired pneumonia to include Zithromax, Rocephin -Influenza testing was negative -Blood cultures are negative for 4 days -Urinalysis was clear Acute hypoxic respiratory failure, improving -Multifactorial with patient having community-acquired pneumonia, congestive heart failure, history of tobacco use and probable underlying COPD -Continue O2 supplementation to maintain O2 sats greater than 92% -Continue nebulizer treatments every 6 hours while awake and every 2 hours as needed -Continue Solu-Medrol 40 mg IV every 8 hours -Obtain home oxygen walk study Community-acquired pneumonia -CXR reviewed and showing possible left upper lobe consolidation as well as possible pulmonary edema. -Continue empirical antibiotics as above Acute diastolic congestive heart failure, improving -Presented with shortness of breath dewey with exertion, orthopnea and dry cough. Follows with Dr. Knight. Kassie recent ECHO. -Continue on Lasix 40 mg IV BID. Monitor intake and output closely. Fluid restriction. -ECHO results as above Type 2 Diabetes mellitus, chronic -Accu-Cheks with sliding scale insulin -Continue Levemir BID. -ADA diet. History of atrial fibrillation, on anticoagulation. -Will continue home Pradaxa. -D-dimer 0.63. Unable to perform pulmonary angiogram secondary to contrast allergy. Patient's Wells criteria is low with a score of 0. Patient is chronic anticoagulated and elevated d-dimer is unlikely secondary to PE, Hypothyroidism, chronic: -Continue home levothyroxine. Hyperlipidemia, chronic: - continue home statin. DVT prophylaxis: -Sequential compression devices, Pradaxa. Discharge Planning: Anticipate discharge tomorrow with oxygen if needed (1) CAP (community acquired pneumonia) Qualifiers: Laterality: left Lung location: upper lobe of lung Qualified Code(s): J18.1 - Lobar pneumonia, unspecified organism
[2018-05-28] MEDS: amLODIPine 5 MG Tablet PO SCH (15:45)
[2018-05-28] MEDS ORDERED: Captopril 12.5 MG Tablet PO SCH (16:00)
[2018-05-29] MEDS: MethylPREDNISolone Sod Succinate Inj 40 MG/ML Vial IV.PUSH SCH ×2 (02:14→10:51)
[2018-05-29] MEDS: Levothyroxine 100 MCG Tablet PO SCH (06:03)
[2018-05-29] MEDS: Levothyroxine 75 MCG Tablet PO SCH (06:03)
[2018-05-29] MEDS: Insulin NovoLOG Aspart Correctional Sugar Inj SQ SCH ×2 (08:13→12:12)
[2018-05-29 09:06] VITALS: RESP 19
--- NOTE | 2018-05-29 09:32 | P.DS ---
Date of admission: 05/25/18 01:28 Primary care physician: MACIEJ Camarena Attending physician on discharge: Werner Navarro Anticipated date of discharge: 05/29/18 Brief History from admission: This is a pleasant 63-year-old female patient with a known medical history of atrial fibrillation on anticoagulation, diabetes, hypothyroidism, hyperlipidemia and CAD with history of CABG who presented to the ED with complaints of shortness of breath. Patient states that she did present to the ER yesterday was diagnosed with community-acquired pneumonia and sent home on azithromycin. Over the course of the night she states that her symptoms worsened and she came back to the ED. Patient states that over the past 5 days she has had worsening shortness of breath especially with exertion, states that she has been sitting in the recliner the past few nights due to shortness of breath and inability to lay flat. She does admit to consistent dry cough. Patient does report of fever of 101 at home as well as chills. She has been sick to her stomach as well with 2 bouts of vomiting, and should be noted that patient did have some blood in her emesis. Patient denies any new medication changes. She does state that she has not taken her medications for the past couple days due to being sick. 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 Knight, has not seen him for a year now, plans to schedule an appointment soon. Patient denies any recent echocardiogram. Does not use home oxygen. DS: Diagnosis - Discharge Diagnosis (1) CAP (community acquired pneumonia) Status: Acute (2) Acute respiratory failure with hypoxia Status: Acute DS: Medications - Discharge Medications Prescriptions: amlodipine [Norvasc] 5 mg PO DAILY #30 tab budesonide-formoterol [Symbicort] 2 puff INH BID #1 g bumetanide 1 mg PO BID #60 tab captopril 25 mg PO Q8HR #90 tab ipratropium-albuterol 1 amp NEB Q6HR WHILE AWAKE NEB #1 box levofloxacin 750 mg PO DAILY #7 tab metoprolol tartrate 25 mg PO BID #60 tab prednisone 10 mg PO DIRECTED #42 tab DS: Summary Hospital Course: 63-year-old female who originally presented the hospital because of continued shortness of breath. Patient was recently treated emergency department and returned for community acquired pneumonia. Patient was sent home on Zithromax at that time. Upon reevaluation the patient patient did have significant worsening breath, dyspnea on exertion. Patient's symptoms are multifactorial contributing to her acute respiratory failure with hypoxia. Patient did have required pneumonia, signs of congestive heart failure and possible underlying emphysema/COPD with her history of tobacco use. Patient admitted the hospital on diuretic, antibiotics for pneumonia. Patient respiratory status did not improve. Patient had medication adjustment with addition of Solu-Medrol. Patient started improving clinically with improved diuresis. Respiratory status improved with reduction of crackles and reduction of wheezing. Patient continued to have rather nasty cough. Her large gustavo-edema did improve as well. Patient did undergo workup and management for congestive heart failure with diuretic, echocardiogram which was relatively unremarkable indicating diastolic congestive heart failure. Patient was started on beta-edu, KRZYSZTOF inhibitor, continued on diuretic. Patient's progress was slow during her hospitalization. Patient still had continued hypoxia and underwent walk study which required home oxygen. However reevaluation indicates patient has good O2 saturations the day with exertion. Patient will be discharged home in stable condition. Patient to follow with a prior medical doctor for further evaluation and management. - Time Spent with Patient Total time spent providing and/or coordinating discharge services: Greater than 30 minutes - Quality: VTE Deep Vein Thrombosis/Pulmonary Embolism Present on Admission: No Exam Vital signs: Vital Signs 05/28/18 12:42 05/28/18 14:31 05/28/18 15:36 Temperature 96.3 F L Pulse Rate 53 L 54 L Respiratory Rate 15 16 Blood Pressure 191/75 H Pulse Oximetry 98 98 Pulse Oximetry [Exertion on Room Air] 85 L Pulse Oximetry [Exertion with Oxygen] 93 L Pulse Oximetry [Resting on Room Air] 93 L 05/28/18 16:45 05/28/18 19:34 05/28/18 20:00 Temperature 96 F L Pulse Rate 54 L 63 Respiratory Rate 16 20 Blood Pressure 170/74 H 149/59 H Pulse Oximetry 98 99 Pulse Oximetry [Exertion on Room Air] Pulse Oximetry [Exertion with Oxygen] Pulse Oximetry [Resting on Room Air] 05/29/18 00:00 05/29/18 04:00 05/29/18 07:40 Temperature 96 F L 96 F L Pulse Rate 59 L 56 L Respiratory Rate 20 20 Blood Pressure 160/74 H 142/72 H Pulse Oximetry 98 100 98 Pulse Oximetry [Exertion on Room Air] Pulse Oximetry [Exertion with Oxygen] Pulse Oximetry [Resting on Room Air] 05/29/18 07:41 05/29/18 08:00 Temperature 97.4 F L Pulse Rate 56 L 59 L Respiratory Rate 20 19 Blood Pressure 138/63 Pulse Oximetry 94 L Pulse Oximetry [Exertion on Room Air] Pulse Oximetry [Exertion with Oxygen] Pulse Oximetry [Resting on Room Air] Intake & Output 05/28/18 05/29/18 05/29/18 18:59 06:59 18:59 Intake Total 960 / 960 480 / 480 Balance 960 / 960 480 / 480 Weight 103.3 kg Intake: Oral 960 / 960 480 / 480 Other: # Voids 3 2 Date of Last Bowel Movement 05/24/18 Narrative: GENERAL: Well-developed, well-nourished, in no acute distress. alert and orientated HEENT: Head is normocephalic without any lesions or masses noted. Facial features are symmetric. Eyes: Extraocular muscles are intact. Conjunctivae were clear. NECK: Supple without any masses. Trachea midline no deviation. No JVD, CARDIAC: Regular rhythm, regular rate. S1/S2 are heard. No murmurs gallops or rubs. LUNGS: Diminished breath sounds noted throughout. No wheeze, rhonchi or rales. No use of accessory muscles on inspiration or expiration ABDOMEN: Soft, nontender. Nondistended. Bowel sounds heard in all 4 quadrants. No organomegaly or masses. Negative rebound, negative guarding EXTREMITIES: 1+ pitting edema noted bilateral lower extremities, pulses are equal bilaterally. No cyanosis or clubbing NEUROLOGY: Mood and affect appear appropriate. Cranial nerves II through XII grossly intact. Moving all extremities, speech is clear Results Procedures completed during hospitalization: ECHOCARDIOGRAM CONCLUSIONS Normal left ventricular size. Wall thickness is normal. The left ventricular systolic function is normal with an estimated ejection fraction in the range of 60-65%. Trace mitral valve regurgitation. Aortic valve sclerosis is present. There is mild to moderate tricuspid valve regurgitation. The estimated pulmonary arterial pressure is 22 mmHg. Labs on day of discharge: Labs from last 24 hours 05/29/18 05/28/18 05/28/18 07:37 21:29 19:02 POC Glucose 243 H 395 H 374 H 05/28/18 05/28/18 15:49 11:23 POC Glucose 312 H 233 H Preliminary micro results at discharge 05/24/18 23:20 Aerobic Blood Culture - Preliminary Blood - Peripheral No growth in 4 days Anaerobic Blood Culture - Preliminary No growth in 4 days 05/24/18 23:20 Aerobic Blood Culture - Preliminary Blood - Peripheral No growth in 4 days Anaerobic Blood Culture - Preliminary No growth in 4 days - Impressions ITS Impressions Chest X-Ray 05/24/18 23:10 CONCLUSION: Slight worsening right base and left upper lobe consolidation. Discharge Plan - Discharge Disposition Patient Disposition: 01 Discharge Home - Discharge Condition Condition: Stable - Discharge Order Discharge Orders: Discharge Order (Routine); Ordered 05/29/18 Ordered By: Sergio Hughes - Discharge Details Anticipated Discharge Date: 05/29/18 - Physicians Team Primary Care Provider: Angelica Oro Attending Provider: Werner Navarro
[2018-05-29] MEDS: Insulin Detemir Inj 1,000 UNIT/10 ML Vial SQ SCH (10:45)
[2018-05-29] MEDS: levoFLOXacin 750 MG Tablet PO SCH (10:48)
[2018-05-29] MEDS: guaiFENesin 600 MG ER Tablet PO SCH (10:48)
[2018-05-29] MEDS: Senna/Docusate Sodium 8.6/50 MG Tablet PO SCH (10:49)
[2018-05-29] MEDS: Metoprolol Tartrate 25 MG Tablet PO SCH (10:50)
[2018-05-29] MEDS: amLODIPine 5 MG Tablet PO SCH (10:50)
[2018-05-29] MEDS: Budesonide-Formoterol 160/4.5 MCG 6 GM Inhaler INH SCH (10:51)
[2018-05-29 13:01] VITALS: PULSE 55; TEMP 97.2; O2SAT 95
[2018-05-29 14:14] VITALS: BP 152/68
== END 2018-05-29 14:30 | disposition home or self-care (01) ==
LOC: PHED 23:00 → PHEDA 05-25 01:28 → PH3 05-25 03:03
PROVIDERS: ADMIT Hospitalist; ATTEND Hospitalist

== ENCOUNTER 2018-08-03 14:39 | Observation (INO) ==
--- NOTE | 2018-08-03 17:52 | XR ---
EXAM DATE: 08/03/2018 5:47 PM EST AGE/SEX: 63 years / Female INDICATIONS: Chest pain and right side numbness. CLINICAL DATA: This is the patient's initial encounter. Patient reports that signs and symptoms have been present for 1 day and indicates a pain score of 4/10. MEDICAL/SURGICAL HISTORY: Chronic obstructive pulmonary disease. CABG. COMPARISON: [facility] [place], CHEST 2V PA&LAT, 06/22/2018. . FINDINGS: Heart is mildly enlarged. Lungs are well-expanded and clear. Median sternotomy wires from prior open heart surgery are noted. Osseous structures are intact. CONCLUSION: Mild cardiomegaly. No evidence of acute cardiopulmonary process. Status post median sternotomy. Electronically signed by: Oren Garza MD 08/03/2018 5:50 PM EST
[2018-08-03 18:37] LABS: Alanine Aminotransferase 22 U/L (10-53)
--- NOTE | 2018-08-03 18:46 | ED ---
HPI General Chief Complaint: Neuro Symptoms/Deficit Stated Complaint: rt side numbness Time Seen by Provider: 08/03/18 15:29 Source: patient Mode of arrival: ambulatory Limitations: no limitations History of Present Illness HPI Narrative: 63-year-old female that presents to the ED for evaluation of right-sided numbness as well as arm numbness. Per patient she has had this on and off since yesterday. Per patient she had an episode yesterday where she was apparently "passed out with her eyes "witnessed by the family that lasted a few seconds and minutes and then she started developing numbness to the right side of her face and hand. Per patient episode lasted less than a few minutes to an hour. Per patient she thought it went away but today the symptoms continue and seem to come and go. Per patient he comes and gets numbness on the right side of the face as well as to the right hand. Today she also had an episode where she had numbness to her right lower leg. She denies weakness. Denies any passing out. No head injury. She does have a history of ACS and is supposed to get a heart cath this week secondary to having shortness of breath with exertion which her doctor wants to see if there is any sign of ACS. Apparently she did had a nuclear stress test that was negative. She denies any other medical issues. No urinary or bowel movement issues. Per patient she has no pain at this time. She does get short of breath with exertion which has been chronic for her and she is taking medications for this. Denies take any blood thinners. No pain or headache. No blurry vision or double vision. No slurred speech. Related Data Home Medications Medication Instructions Recorded Confirmed aspirin 81 mg PO DAILY 05/23/18 08/03/18 dabigatran etexilate [Pradaxa] 150 mg PO BID 05/23/18 08/03/18 insulin glargine [Lantus Solostar 36 unit SUB-Q BID 05/23/18 08/03/18 U-100 Insulin] levothyroxine 175 mcg PO DAILY 05/23/18 08/03/18 alprazolam [Xanax] 0.5 mg PO HS 08/03/18 08/03/18 isosorbide mononitrate 30 mg PO DAILY 08/03/18 08/03/18 losartan [Cozaar] 100 mg PO DAILY 08/03/18 08/03/18 torsemide 20 mg PO DAILY 08/03/18 08/03/18 Allergies Allergy/AdvReac Type Severity Reaction Status Date / Time benzonatate Allergy Severe DIZZINESS Verified 08/03/18 18:31 AND VISUAL DISTURBANCE hydrocodone Allergy Intermediate DIAPHORESIS Verified 08/03/18 19:14 AND NAUSEA lisinopril Allergy Intermediate Edema, Verified 08/03/18 19:14 Localized watermelon Allergy Intermediate Anaphylaxis Verified 08/03/18 19:14 codeine AdvReac Intermediate Nausea/Vomi Verified 08/03/18 19:14 ting Review of Systems ROS: all other systems reviewed are negative [facility] Medical History Medical History Anxiety (Acute) Atrial fibrillation (Acute) CAD (coronary artery disease) (Acute) Diabetes 1.5, managed as type 1 (Acute) H/O: hysterectomy (Acute) Hypertension (Acute) Hypothyroid (Acute) Surgical History Surgical History H/O discectomy (Acute) Hx of tonsillectomy (Acute) S/P triple vessel bypass (Acute) Family History Family History Mother Colon cancer Social History Social History Substance History: No History of Abuse Second Hand Smoke Exposure: Yes Smoking Status: Never smoker How Often Do You Have a Drink Containing Alcohol: Never Recent Travel in [facility] within the Last 8 Weeks: No Recent Out of Country Travel within the Last 8 Weeks: No Immunization History Tetanus Immunization: <5 Years Exam Narrative Exam Narrative: GENERAL: well appearing SKIN: Focused skin assessment warm/dry. HEAD: Atraumatic. Normocephalic. EYES: Pupils equal and round. No scleral icterus. No injection or drainage. ENT: No nasal bleeding or discharge. Mucous membranes pink and moist. Tongue is midline. No uvula deviation. NECK: Trachea midline. No JVD. CARDIOVASCULAR: Regular rate and rhythm. No murmur appreciated. RESPIRATORY: No accessory muscle use. Clear to auscultation. Breath sounds equal bilaterally. GASTROINTESTINAL: Abdomen soft, non-tender, nondistended. Hepatic and splenic margins not palpable. MUSCULOSKELETAL: No obvious deformities. No clubbing. No cyanosis. No edema. Full range of motion of the upper and lower extremities bilaterally. 2+ pulses bilaterally. 5 out of 5 strength in the upper and lower extremities bilaterally. NEUROLOGICAL: Awake and alert. No obvious cranial nerve deficits. Motor grossly within normal limits. Normal speech. PSYCHIATRIC: Appropriate mood and affect; insight and judgment normal. Course Initial Documented Vital Signs Temperature 98.7 F 08/03/18 14:49 Pulse Rate 66 08/03/18 14:49 Respiratory Rate 16 08/03/18 14:49 Blood Pressure 135/61 08/03/18 14:49 Pulse Oximetry 98 08/03/18 14:49 Last Documented Vital Signs Temperature 98.7 F 08/03/18 14:49 Pulse Rate 55 L 08/03/18 21:45 Respiratory Rate 18 08/03/18 21:45 Blood Pressure 174/70 H 08/03/18 21:45 Pulse Oximetry 97 08/03/18 21:45 Medical Decision Making MDM Narrative Medical decision making narrative: 63-year-old female that presents to the ED for evaluation of possible TIA. Patient was properly examined and was found to have signs and symptoms consistent with appears to be likely CVA versus TIA. Labs and imaging ordered. Last normal since yesterday. Episodes appear to come and go. Labs and imaging ordered and showed no sign of acute disease. my attending Dr Styles recommends admission for TIA work up. Patient agrees. Patient admitted to Dr Dolan who agrees to admission. Medical Screen Exam Complete: Yes Emergency Medical Condition: Yes Differential Diagnosis Differential Diagnosis: TIA versus CVA versus ACS versus neuropathy Medical Records Medical records reviewed: Yes I reviewed the patient's medical records. Lab Data Lab results reviewed: Yes I reviewed the patient's lab results. Lab results narrative: troponin and CKMB negative Result diagrams: 08/03/18 18:49 08/03/18 18:50 Lab Results 08/03/18 08/03/18 08/03/18 Range/Units 17:50 18:49 18:49 WBC 9.9 (4.0-11.0) th/mm3 RBC 4.41 (4.00-5.30) mil/mm3 Hgb 11.9 (11.6-15.3) gm/dL Hct 35.8 (35.0-46.0) % MCV 81.1 (80.0-100.0) fL MCH 26.9 L (27.0-34.0) pg MCHC 33.1 (32.0-36.0) % RDW 14.3 (11.6-17.2) % Plt Count 218 (150-450) th/mm3 MPV 10.2 (7.0-11.0) fL Neut % (Auto) 67.0 (16.0-70.0) % Lymph % (Auto) 25.1 (9.0-44.0) % [place] % (Auto) 5.3 (0.0-8.0) % Eos % (Auto) 1.8 (0.0-4.0) % Baso % (Auto) 0.8 (0.0-2.0) % Neut # (Auto) 6.6 (1.8-7.7) th/mm3 Lymph # (Auto) 2.5 (1.0-4.8) th/mm3 [place] # (Auto) 0.5 (0.0-0.9) th/mm3 Eos # (Auto) 0.2 (0.0-0.4) th/mm3 Baso # (Auto) 0.1 (0.0-0.2) th/mm3 WBC Differential . Differential Comment Auto diff final PT 11.3 (9.8-11.6) sec INR 1.1 Ratio APTT 37.7 H (23.4-31.7) sec Sodium (136-145) meq/L Potassium (3.5-5.1) meq/L Chloride (98-107) meq/L Carbon Dioxide (21.0-32.0) meq/L Anion Gap (5-15) meq/L BUN (7-18) mg/dL Creatinine (0.50-1.00) mg/dL Estimated GFR (>89) mL/min POC Glucose 154 H (68-110) mg/dl Random Glucose (74-106) mg/dL Calcium (8.5-10.1) mg/dL Total Bilirubin (0.2-1.0) mg/dL AST (15-37) U/L ALT (10-53) U/L Alkaline Phosphatase (45-117) U/L Total Creatine Kinase (26-192) U/L Troponin I (0.02-0.05) ng/mL Total Protein (6.4-8.2) g/dL Albumin (3.4-5.0) g/dL Urine Color (Yellw/Straw) Urine Clarity (Clear) Urine pH (5.0-8.5) Ur Specific [place] (1.002-1.035) Urine Protein (Neg-Trace) mg/dL Urine Glucose (UA) (Negative) mg/dL Urine Ketones (Negative) mg/dL Urine Occult Blood (Negative) Urine Nitrate (Negative) Urine Bilirubin (Negative) Urine Urobilinogen (Less than 2) mg/dL Ur Leukocyte Esterase (Negative) Urine RBC (0-3) /hpf Urine WBC (0-5) /hpf Ur Squamous Epith Cells (0-5) /hpf Urine Bacteria (None) /hpf Hyaline Casts (0-3) /lpf Urine Mucus (Occasional) /lpf Micro UA Comment Ur Microscopic Review Urine Culture Comments 08/03/18 08/03/18 08/03/18 Range/Units 18:50 19:40 19:50 WBC (4.0-11.0) th/mm3 RBC (4.00-5.30) mil/mm3 Hgb (11.6-15.3) gm/dL Hct (35.0-46.0) % MCV (80.0-100.0) fL MCH (27.0-34.0) pg MCHC (32.0-36.0) % RDW (11.6-17.2) % Plt Count (150-450) th/mm3 MPV (7.0-11.0) fL Neut % (Auto) (16.0-70.0) % Lymph % (Auto) (9.0-44.0) % [place] % (Auto) (0.0-8.0) % Eos % (Auto) (0.0-4.0) % Baso % (Auto) (0.0-2.0) % Neut # (Auto) (1.8-7.7) th/mm3 Lymph # (Auto) (1.0-4.8) th/mm3 [place] # (Auto) (0.0-0.9) th/mm3 Eos # (Auto) (0.0-0.4) th/mm3 Baso # (Auto) (0.0-0.2) th/mm3 WBC Differential Differential Comment PT (9.8-11.6) sec INR Ratio APTT (23.4-31.7) sec Sodium 139 (136-145) meq/L Potassium 3.7 (3.5-5.1) meq/L Chloride 103 (98-107) meq/L Carbon Dioxide 29.3 (21.0-32.0) meq/L Anion Gap 7 (5-15) meq/L BUN 24 H (7-18) mg/dL Creatinine 1.10 H (0.50-1.00) mg/dL Estimated GFR 50 L (>89) mL/min POC Glucose 125 H (68-110) mg/dl Random Glucose 127 H (74-106) mg/dL Calcium 9.0 (8.5-10.1) mg/dL Total Bilirubin 0.4 (0.2-1.0) mg/dL AST 7 L (15-37) U/L ALT 22 (10-53) U/L Alkaline Phosphatase 97 (45-117) U/L Total Creatine Kinase 70 (26-192) U/L Troponin I Less than 0.02 L (0.02-0.05) ng/mL Total Protein 6.8 (6.4-8.2) g/dL Albumin 3.3 L (3.4-5.0) g/dL Urine Color Yellow (Yellw/Straw) Urine Clarity Hazy H (Clear) Urine pH 5.0 (5.0-8.5) Ur Specific [place] 1.011 (1.002-1.035) Urine Protein Negative (Neg-Trace) mg/dL Urine Glucose (UA) Negative (Negative) mg/dL Urine Ketones Negative (Negative) mg/dL Urine Occult Blood Moderate H (Negative) Urine Nitrate Negative (Negative) Urine Bilirubin Negative (Negative) Urine Urobilinogen Less than 2 (Less than 2) mg/dL Ur Leukocyte Esterase Large H (Negative) Urine RBC 13 H (0-3) /hpf Urine WBC 71 H (0-5) /hpf Ur Squamous Epith Cells 5 (0-5) /hpf Urine Bacteria Few H (None) /hpf Hyaline Casts 4 (0-3) /lpf Urine Mucus Few H (Occasional) /lpf Micro UA Comment Culture indicated Ur Microscopic Review Not Reportable Urine Culture Comments Culture indicated Imaging Data Attestation: I personally reviewed and interpreted this imaging study as follows : Radiologist's impression: Chest X-Ray 08/03/18 17:23 CONCLUSION: Mild cardiomegaly. No evidence of acute cardiopulmonary process. Status post median sternotomy. Head CT 08/03/18 17:23 CONCLUSION: 1. No acute intracranial abnormality. . ECG Data Attestation: I personally reviewed and interpreted this ECG as follows: Interpretation: EKG shows sinus rhythm with no sign of acute ischemia or arrhythmia read by me and attending. Discharge Plan Discharge Disposition Patient Disposition: 30 Still Patient Discharge Details Diagnosis: Transient cerebral ischemia Physicians Team ED Provider: Dustin Styles ED Midlevel Provider: Jose Daniel Diallo Primary Care Provider: DANIE, Attending Provider: Codey Dolan Status ED Status: Admitted Observation Patient
--- NOTE | 2018-08-03 19:04 | ECG ---
Date Performed: 08/03/2018 Time Performed: 15:08:40 PTAGE: 63 years EKG: Sinus rhythm POSSIBLE LEFT ATRIAL ENLARGEMENT Nonspecific T wave changes No significant change from prior electro cardiogram. PREVIOUS TRACING : 05/06/2017 19.12 DOCTOR: Cedrick Nivees Interpretating Date/Time 08/03/2018 19:03:42
[2018-08-03 19:36] LABS: Baso # (Auto) 0.1 th/mm3 (0.0-0.2); Baso % (Auto) 0.8 % (0.0-2.0); Eos # (Auto) 0.2 th/mm3 (0.0-0.4); Eos % (Auto) 1.8 % (0.0-4.0); Hematocrit 35.8 % (35.0-46.0); Hemoglobin 11.9 gm/dL (11.6-15.3); Lymph # (Auto) 2.5 th/mm3 (1.0-4.8); Lymph % (Auto) 25.1 % (9.0-44.0); Mean Corpuscular HGB Conc 33.1 % (32.0-36.0); Mean Corpuscular Hemoglobin 26.9 pg (27.0-34.0); Mean Corpuscular Volume 81.1 fL (80.0-100.0); Mean Platelet Volume 10.2 fL (7.0-11.0); Mono # (Auto) 0.5 th/mm3 (0.0-0.9); Mono % (Auto) 5.3 % (0.0-8.0); Neut # (Auto) 6.6 th/mm3 (1.8-7.7); Platelet Count 218 th/mm3 (150-450); Red Blood Count 4.41 mil/mm3 (4.00-5.30); Red Cell Distribution Width 14.3 % (11.6-17.2); White Blood Count 9.9 th/mm3 (4.0-11.0)
[2018-08-03 19:47] LABS: Activated Partial Thrombo Time 37.7 sec (23.4-31.7); INR 1.1 Ratio; Prothrombin Time 11.3 sec (9.8-11.6)
[2018-08-03 19:55] LABS: Albumin 3.3 g/dL (3.4-5.0); Anion Gap 7 meq/L (5-15); Aspartate Aminotransferase 7 U/L (15-37); Blood Urea Nitrogen 24 mg/dL (7-18); Carbon Dioxide 29.3 meq/L (21.0-32.0); Chloride 103 meq/L (98-107); Glomerular Filtration Rate 50 mL/min (>89); Glucose,Random 127 mg/dL (74-106); Potassium 3.7 meq/L (3.5-5.1); Sodium 139 meq/L (136-145)
[2018-08-03 20:00] LABS: Alkaline Phosphatase 97 U/L (45-117); Total Protein 6.8 g/dL (6.4-8.2)
[2018-08-03 20:08] LABS: Creatine Kinase 70 U/L (26-192)
[2018-08-03 20:35] LABS: Bacteria,Urine Few /hpf; Bilirubin,Urine Negative (Negative); Clarity,Urine Hazy (Clear); Color,Urine Yellow (Yellw/Straw); Glucose,Urine (UA) Negative (Negative); Hyaline Casts,Urine 4 /lpf (0-3); Leukocyte Esterase,Urine Large (Negative); Mucus,Urine Few /lpf (Occasional); Nitrite,Urine Negative (Negative); Specific Gravity,Urine 1.011 (1.002-1.035); Squamous Epithelial Cell,Urine 5 /hpf (0-5)
--- NOTE | 2018-08-03 20:38 | CT ---
EXAM DATE: 08/03/2018 8:35 PM EST AGE/SEX: 63 years / Female INDICATIONS: Right sided face and arm numbness. CLINICAL DATA: This is the patient's initial encounter. Patient reports that signs and symptoms have been present for 1 day and indicates a pain score of 0/10. MEDICAL/SURGICAL HISTORY: Cardiovascular disease. Diabetes mellitus type II. Hypertension. Hyster ectomy. RADIATION DOSE: 56.35 CTDI (mGy) COMPARISON: No prior exams available for comparison. TECHNIQUE: CT of the head without contrast. Using automated exposure control and adjustment of the mA and/or kV according to patient size, radiation dose was kept as low as reasonably achievable to ob tain optimal diagnostic quality images. DICOM format image data is available electronically for revi ew and comparison. FINDINGS: Cerebrum: The ventricles are normal for age. No evidence of midline shift, mass lesion, hemorrhage o r acute infarction. No extraaxial fluid collections are seen. Posterior Fossa: The cerebellum and brainstem are intact. The 4th ventricle is midline. The cerebe llopontine angle is unremarkable. Extracranial: The visualized portion of the orbits is intact. Skull: The calvaria is intact. No evidence of skull fracture. CONCLUSION: 1. No acute intracranial abnormality. . Electronically signed by: Floyd Reynoso MD 08/03/2018 8:37 PM EST
[2018-08-03] MEDS ORDERED: Dextrose 50% in Water 50 ML Vial IV.PUSH PRN (21:14)
[2018-08-03] MEDS ORDERED: Insulin NovoLOG Aspart Correctional Sugar Inj SQ PRN (21:14)
[2018-08-03] MEDS ORDERED: ALPRAZolam 0.5 MG Tablet PO ONE (23:34)
[2018-08-04] MEDS: Acetaminophen 325 MG Tablet PO PRN (00:01)
--- NOTE | 2018-08-04 05:15 | P.HPIM ---
History of Present Illness Primary Care Physician: UNKNOWN History of Present Illness: 63-year-old female with a history of atrial fibrillation, diabetes mellitus, coronary artery disease status post CABG who presents with episode of right sided facial numbness, right arm numbness which has been occurring on and off since yesterday. Patient says it is currently resolved, however still has a little tingling in the right hand. Patient says she is otherwise feeling all right except for having some increased shortness of breath which is stable over the past 2 months. She is scheduled to get a heart catheterization by Dr. Knight in the coming week. Review of Systems All other systems reviewed negative except as stated in HPI PMFSH - History History Provided By: Patient - Medical History Medical History: Medical History (Last Reviewed 08/04/18 @ 05:10 by Codey Dolan MD) Anxiety Atrial fibrillation CAD (coronary artery disease) Diabetes 1.5, managed as type 1 H/O: hysterectomy Hypertension Hypothyroid - Surgical History Surgical History: Surgical History (Last Reviewed 08/04/18 @ 05:10 by Codey Dolan MD) H/O discectomy Hx of tonsillectomy S/P triple vessel bypass - Family History Family History: Family History (Last Reviewed 08/03/18 @ 18:44 by SHELBY Avendaño) Mother Colon cancer - Tobacco History Second Hand Smoke Exposure: Yes Smoking Status: Never smoker - Alcohol History How Often Do You Have a Drink Containing Alcohol: Never - Substance Use History Substance History: No History of Abuse - Travel History Recent Travel in the [place] Within the Last 8 Weeks: No Recent Travel Out of the Country Within the Last 8 Weeks: No - Immunization History Tetanus Immunization: <5 Years Medications and Allergies Active Medications: Active Medications Acetaminophen (Tylenol) 650 mg PO Q4H PRN PRN Reason: fever or ROYAL Last Admin: 08/04/18 00:01 Dose: 650 mg Aspirin (Aspirin Chew) 81 mg PO DAILY TAWANDA Dabigatran (Pradaxa) 150 mg PO BID TAWANDA Dextrose (D50w Vial) 50 ml IV.PUSH UNSCH PRN PRN Reason: per Hypoglycemic Protocol Glucagon (Glucagon Inj) 1 mg OTHER UNSCH PRN PRN Reason: per Hypoglycemic Protocol Insulin Aspart (Novolog Insulin Correctional Sugar Inj) 0 unit SQ ACHS PRN; Protocol PRN Reason: Per Protocol Insulin Detemir (Levemir Inj) 15 unit SQ BID TAWANDA Levothyroxine Sodium (Synthroid) 100 mcg PO DAILY@0700 REPLACED BY [facility] Levothyroxine Sodium (Synthroid) 75 mcg PO DAILY@0700 REPLACED BY [facility] Losartan Potassium (Cozaar) 100 mg PO HS REPLACED BY [facility] Last Admin: 08/04/18 00:02 Dose: Not Given Sodium Chloride (Ns Flush) 2 ml IV.FLUSH PRN PRN PRN Reason: FLUSH AFTER USING IV ACCESS Allergies Allergy/AdvReac Type Severity Reaction Status Date / Time benzonatate Allergy Severe DIZZINESS Verified 08/03/18 18:31 AND VISUAL DISTURBANCE hydrocodone Allergy Intermediate DIAPHORESIS Verified 08/03/18 19:14 AND NAUSEA lisinopril Allergy Intermediate Edema, Verified 08/03/18 19:14 Localized watermelon Allergy Intermediate Anaphylaxis Verified 08/03/18 19:14 codeine AdvReac Intermediate Nausea/Vomi Verified 08/03/18 19:14 ting Home Medications Medication Instructions Recorded Confirmed Type aspirin 81 mg PO DAILY 05/23/18 08/03/18 History dabigatran etexilate [Pradaxa] 150 mg PO BID 05/23/18 08/03/18 History insulin glargine [Lantus Solostar 36 unit SUB-Q BID 05/23/18 08/03/18 History U-100 Insulin] levothyroxine 175 mcg PO DAILY 05/23/18 08/03/18 History alprazolam [Xanax] 0.5 mg PO HS 08/03/18 08/03/18 History isosorbide mononitrate 30 mg PO DAILY 08/03/18 08/03/18 History losartan [Cozaar] 100 mg PO DAILY 08/03/18 08/03/18 History torsemide 20 mg PO DAILY 08/03/18 08/03/18 History Exam Vital signs: Vital Signs 08/03/18 14:49 08/03/18 17:30 08/03/18 17:32 Temperature 98.7 F Pulse Rate 66 67 58 L Respiratory Rate 16 17 Blood Pressure 135/61 205/80 H Pulse Oximetry 98 98 99 08/03/18 21:45 08/03/18 21:59 08/04/18 00:00 Temperature 98.0 F 97.8 F Pulse Rate 55 L 63 Respiratory Rate 18 16 Blood Pressure 174/70 H 135/56 L Pulse Oximetry 97 95 08/04/18 00:15 Temperature Pulse Rate 72 Respiratory Rate 16 Blood Pressure 154/65 H Pulse Oximetry 96 Intake & Output 08/03/18 08/03/18 08/04/18 06:59 18:59 06:59 Weight 99.79 kg 99.79 kg Other: Date of Last Bowel Movement 08/02/18 Weight On Admission 99.79 kg Narrative: GENERAL: Patient sitting up in bed. Appears comfortable. Alert and oriented x3. SKIN: Warm and dry. HEAD: Atraumatic. Normocephalic. EYES: Pupils equal and round. No scleral icterus. No injection or drainage. ENT: No nasal bleeding or discharge. Mucous membranes pink and moist. NECK: Trachea midline. No JVD. CARDIOVASCULAR: Regular rate and rhythm. RESPIRATORY: No accessory muscle use. Clear to auscultation. Breath sounds equal bilaterally. GASTROINTESTINAL: Abdomen soft, non-tender, nondistended. Hepatic and splenic margins not palpable. MUSCULOSKELETAL: Extremities without clubbing, cyanosis, or edema. No obvious deformities. NEUROLOGICAL: Awake and alert. No obvious cranial nerve deficits. Motor grossly within normal limits. Five out of 5 muscle strength in the arms and legs. Normal speech. No pronator drift. PSYCHIATRIC: Appropriate mood and affect; insight and judgment normal. Results - Labs CBC & Chem 7: 08/03/18 18:49 08/03/18 18:50 Labs: Short CBC 08/03/18 Range/Units 18:49 WBC 9.9 (4.0-11.0) th/mm3 Hgb 11.9 (11.6-15.3) gm/dL Hct 35.8 (35.0-46.0) % Plt Count 218 (150-450) th/mm3 [facility] 08/03/18 18:50 Sodium 139 Potassium 3.7 Chloride 103 Carbon Dioxide 29.3 BUN 24 H Creatinine 1.10 H Calcium 9.0 Cardiac Enzymes 08/03/18 Range/Units 18:50 Total Creatine Kinase 70 (26-192) U/L Troponin I Less than 0.02 L (0.02-0.05) ng/mL Liver Function 08/03/18 Range/Units 18:50 Total Bilirubin 0.4 (0.2-1.0) mg/dL AST 7 L (15-37) U/L ALT 22 (10-53) U/L Alkaline Phosphatase 97 (45-117) U/L Albumin 3.3 L (3.4-5.0) g/dL Urine 08/03/18 Range/Units 19:50 Urine Color Yellow (Yellw/Straw) Urine Clarity Hazy H (Clear) Urine pH 5.0 (5.0-8.5) Ur Specific [place] 1.011 (1.002-1.035) Urine Protein Negative (Neg-Trace) mg/dL Urine Glucose (UA) Negative (Negative) mg/dL - Imaging Impressions Chest X-Ray 08/03/18 17:23 CONCLUSION: Mild cardiomegaly. No evidence of acute cardiopulmonary process. Status post median sternotomy. Head CT 08/03/18 17:23 CONCLUSION: 1. No acute intracranial abnormality. . Caprini VTE Risk Assessment Caprini VTE Risk Assessment: Moderate/High Risk (score >= 2) Caprini Risk Assessment Model: Point Value = 1 Point Value = 2 Point Value = 3 Point Value = 5 Age 41-60 Minor surgery BMI > 25 kg/m2 Swollen legs Varicose veins or History of unexplained or recurrent spontaneous Oral contraceptives or hormone replacement Sepsis (< 1 month) Serious lung disease, including pneumonia (< 1 month) Abnormal pulmonary function Acute myocardial infarction Congestive heart failure (< 1 month) History of inflammatory bowel disease Medical patient at bed rest Age 61-74 Arthroscopic surgery Major open surgery (> 45 min) Laparoscopic surgery (> 45 min) Malignancy Confined to bed (> 72 hours) Immobilizing plaster cast Central venous access Age >= 75 History of VTE Family history of VTE Factor V Leiden Prothrombin [id number] Lupus anticoagulant Anticardiolipin antibodies Elevated serum homocysteine Heparin-induced thrombocytopenia Other congenital or acquired thrombophilia Stroke (< 1 month) Elective arthroplasty Hip, pelvis, or leg fracture Acute spinal cord injury (< 1 month) Prophylaxis Regimen: Total Risk Factor Score Risk Level Prophylaxis Regimen 0-1 Low Early ambulation 2 Moderate Order ONE of the following: *Sequential Compression Device (SCD) *Heparin 5000 units SQ BID 3-4 Higher Order ONE of the following medications: *Heparin 5000 units SQ TID *Enoxaparin/Lovenox 40 mg SQ daily (WT < 150 kg, CrCl > 30 mL/min) *Enoxaparin/Lovenox 30 mg SQ daily (WT < 150 kg, CrCl > 10-29 mL/min) *Enoxaparin/Lovenox 30 mg SQ BID (WT < 150 kg, CrCl > 30 mL/min) AND/OR *Sequential Compression Device (SCD) 5 or more Highest Order ONE of the following medications: *Heparin 5000 units SQ TID (Preferred with Epidurals) *Enoxaparin/Lovenox 40 mg SQ daily (WT < 150 kg, CrCl > 30 mL/min) *Enoxaparin/Lovenox 30 mg SQ daily (WT < 150 kg, CrCl > 10-29 mL/min) *Enoxaparin/Lovenox 30 mg SQ BID (WT < 150 kg, CrCl > 30 mL/min) AND *Sequential Compression Device (SCD) Assessment and Plan - Plan //Suspected TIA CT on admission negative -Patient is already on anticoagulation for atrial fibrillation. We will continue We will check echocardiogram, carotid ultrasound, telemetry. Due to intermittent waxing waning nature, will consult neurologist. //History of atrial fibrillation. Rate controlled. Continue anticoagulation. //Diabetes mellitus. Chronic. Diabetic diet and insulin sliding scale. Continue to monitor. Discussed Condition With: Patient, nurse, ED physician. Discharge Planning: Possibly home this afternoon if cleared by neurology. H&P: Quality - VTE Deep Vein Thrombosis/Pulmonary Embolism Present on Admission: No
--- NOTE | 2018-08-04 07:26 | P.CONNEU ---
History of Present Illness Service: Neurology Primary Care Provider: UNKNOWN Chief Complaint: TIA History of Present Illness: 63-year-old female admitted for TIA. Recurrent episodes of right facial arm leg numbness mild weakness. Currently resolved. Takes Pradaxa full dose twice daily denies any noncompliance. Denies any head or neck trauma syncope seizure fever night sweats. Review of Systems All other systems reviewed negative except as stated in HPI PMFSH - History History Provided By: Patient - Medical History Medical History: Medical History (Last Reviewed 08/04/18 @ 08:13 by Jo Baron Screen Tender, [employer]) Anxiety Atrial fibrillation CAD (coronary artery disease) Diabetes 1.5, managed as type 1 H/O: hysterectomy Hypertension Hypothyroid - Surgical History Surgical History: Surgical History (Last Reviewed 08/04/18 @ 05:10 by Codey Dolan MD) H/O discectomy Hx of tonsillectomy S/P triple vessel bypass - Family History Family History: Family History (Last Reviewed 08/03/18 @ 18:44 by SHELBY Avendaño) Mother Colon cancer - Tobacco History Second Hand Smoke Exposure: Yes Smoking Status: Never smoker - Alcohol History How Often Do You Have a Drink Containing Alcohol: Never - Substance Use History Substance History: No History of Abuse - Travel History Recent Travel in the [place] Within the Last 8 Weeks: No Recent Travel Out of the Country Within the Last 8 Weeks: No - Immunization History Tetanus Immunization: <5 Years Medications and Allergies Active Medications: Active Medications Acetaminophen (Tylenol) 650 mg PO Q4H PRN PRN Reason: fever or ROYAL Last Admin: 08/04/18 00:01 Dose: 650 mg Aspirin (Aspirin Chew) 81 mg PO DAILY [facility] Dabigatran (Pradaxa) 150 mg PO BID [facility] Dextrose (D50w Vial) 50 ml IV.PUSH UNSCH PRN PRN Reason: per Hypoglycemic Protocol Glucagon (Glucagon Inj) 1 mg OTHER UNSCH PRN PRN Reason: per Hypoglycemic Protocol Insulin Aspart (Novolog Insulin Correctional Sugar Inj) 0 unit SQ ACHS PRN; Protocol PRN Reason: Per Protocol Insulin Detemir (Levemir Inj) 15 unit SQ BID [facility] Levothyroxine Sodium (Synthroid) 100 mcg PO DAILY@0700 [facility] Levothyroxine Sodium (Synthroid) 75 mcg PO DAILY@0700 [facility] Losartan Potassium (Cozaar) 100 mg PO HS [facility] Last Admin: 08/04/18 00:02 Dose: Not Given Sodium Chloride (Ns Flush) 2 ml IV.FLUSH PRN PRN PRN Reason: FLUSH AFTER USING IV ACCESS Allergies Allergy/AdvReac Type Severity Reaction Status Date / Time benzonatate Allergy Severe DIZZINESS Verified 08/03/18 18:31 AND VISUAL DISTURBANCE hydrocodone Allergy Intermediate DIAPHORESIS Verified 08/03/18 19:14 AND NAUSEA lisinopril Allergy Intermediate Edema, Verified 08/03/18 19:14 Localized watermelon Allergy Intermediate Anaphylaxis Verified 08/03/18 19:14 codeine AdvReac Intermediate Nausea/Vomi Verified 08/03/18 19:14 ting Home Medications Medication Instructions Recorded Confirmed Type aspirin 81 mg PO DAILY 05/23/18 08/03/18 History dabigatran etexilate [Pradaxa] 150 mg PO BID 05/23/18 08/03/18 History insulin glargine [Lantus Solostar 36 unit SUB-Q BID 05/23/18 08/03/18 History U-100 Insulin] levothyroxine 175 mcg PO DAILY 05/23/18 08/03/18 History alprazolam [Xanax] 0.5 mg PO HS 08/03/18 08/03/18 History isosorbide mononitrate 30 mg PO DAILY 08/03/18 08/03/18 History losartan [Cozaar] 100 mg PO DAILY 08/03/18 08/03/18 History torsemide 20 mg PO DAILY 08/03/18 08/03/18 History Exam Vital signs: Vital Signs 08/03/18 14:49 08/03/18 17:30 08/03/18 17:32 Temperature 98.7 F Pulse Rate 66 67 58 L Respiratory Rate 16 17 Blood Pressure 135/61 205/80 H Pulse Oximetry 98 98 99 08/03/18 21:45 08/03/18 21:59 08/04/18 00:00 Temperature 98.0 F 97.8 F Pulse Rate 55 L 63 Respiratory Rate 18 16 Blood Pressure 174/70 H 135/56 L Pulse Oximetry 97 95 08/04/18 02:15 08/04/18 04:00 Temperature 98.6 F Pulse Rate 72 76 Respiratory Rate 16 16 Blood Pressure 154/65 H 160/68 H Pulse Oximetry 96 98 Intake & Output 08/03/18 08/04/18 08/04/18 18:59 06:59 18:59 Intake Total 360 / 360 Balance 360 / 360 Weight 99.79 kg 101 kg Intake: Oral 360 / 360 Other: Date of Last Bowel Movement 08/02/18 Weight On Admission 99.79 kg Narrative: GENERAL: in NAD, SKIN: Warm and dry. HEAD: Atraumatic. Normocephalic. EYES: Pupils equal and round. No scleral icterus. ENT: No nasal bleeding or discharge. Mucous membranes pink and moist. NECK: Trachea midline. No JVD. CARDIOVASCULAR: Regular rate and rhythm. RESPIRATORY: No accessory muscle use. GASTROINTESTINAL: Abdomen soft, non-tender, nondistended. MUSCULOSKELETAL: Extremities without clubbing, cyanosis, or edema. No obvious deformities. NEUROLOGICAL: Awake and alert. No aphasia, fluent articulate, oriented x3 visual [place] full no facial asymmetry moving all 4 extremity gravity reflex symmetric plantarflexion no clonus gait not assessed secondary fall risk PSYCHIATRIC: Appropriate mood and affect; insight and judgment normal. - Constitutional no acute distress - Routine HEENT Exam Head: Present: normocephalic Eye: Present: EOMI Results - Labs CBC & Chem 7: 08/03/18 18:49 08/03/18 18:50 Labs: Laboratory Results - last 24 hr 08/03/18 08/03/18 08/03/18 17:50 18:49 18:49 WBC 9.9 RBC 4.41 Hgb 11.9 Hct 35.8 MCV 81.1 MCH 26.9 L MCHC 33.1 RDW 14.3 Plt Count 218 MPV 10.2 Neut % (Auto) 67.0 Lymph % (Auto) 25.1 Harlan % (Auto) 5.3 Eos % (Auto) 1.8 Baso % (Auto) 0.8 Neut # (Auto) 6.6 Lymph # (Auto) 2.5 Harlan # (Auto) 0.5 Eos # (Auto) 0.2 Baso # (Auto) 0.1 WBC Differential . Differential Comment Auto diff final PT 11.3 INR 1.1 APTT 37.7 H Sodium Potassium Chloride Carbon Dioxide Anion Gap BUN Creatinine Estimated GFR POC Glucose 154 H Random Glucose Calcium Total Bilirubin AST ALT Alkaline Phosphatase Total Creatine Kinase Troponin I Total Protein Albumin Urine Color Urine Clarity Urine pH Ur Specific [place] Urine Protein Urine Glucose (UA) Urine Ketones Urine Occult Blood Urine Nitrate Urine Bilirubin Urine Urobilinogen Ur Leukocyte Esterase Urine RBC Urine WBC Ur Squamous Epith Cells Urine Bacteria Hyaline Casts Urine Mucus Micro UA Comment Ur Microscopic Review Urine Culture Comments 08/03/18 08/03/18 08/03/18 18:50 19:40 19:50 WBC RBC Hgb Hct MCV MCH MCHC RDW Plt Count MPV Neut % (Auto) Lymph % (Auto) Harlan % (Auto) Eos % (Auto) Baso % (Auto) Neut # (Auto) Lymph # (Auto) Harlan # (Auto) Eos # (Auto) Baso # (Auto) WBC Differential Differential Comment PT INR APTT Sodium 139 Potassium 3.7 Chloride 103 Carbon Dioxide 29.3 Anion Gap 7 BUN 24 H Creatinine 1.10 H Estimated GFR 50 L POC Glucose 125 H Random Glucose 127 H Calcium 9.0 Total Bilirubin 0.4 AST 7 L ALT 22 Alkaline Phosphatase 97 Total Creatine Kinase 70 Troponin I Less than 0.02 L Total Protein 6.8 Albumin 3.3 L Urine Color Yellow Urine Clarity Hazy H Urine pH 5.0 Ur Specific [place]ey 1.011 Urine Protein Negative Urine Glucose (UA) Negative Urine Ketones Negative Urine Occult Blood Moderate H Urine Nitrate Negative Urine Bilirubin Negative Urine Urobilinogen Less than 2 Ur Leukocyte Esterase Large H Urine RBC 13 H Urine WBC 71 H Ur Squamous Epith Cells 5 Urine Bacteria Few H Hyaline Casts 4 Urine Mucus Few H Micro UA Comment Culture indicated Ur Microscopic Review Not Reportable Urine Culture Comments Culture indicated - Imaging Impressions Chest X-Ray 08/03/18 17:23 CONCLUSION: Mild cardiomegaly. No evidence of acute cardiopulmonary process. Status post median sternotomy. Head CT 08/03/18 17:23 CONCLUSION: 1. No acute intracranial abnormality. . Review/Management - Diagnosis (1) Atrial fibrillation Code(s): I48.91 - Unspecified atrial fibrillation Status: Acute Current Visit: Yes (2) Transient cerebral ischemia Code(s): G45.9 - Transient cerebral ischemic attack, unspecified Status: Acute Current Visit: Yes (3) Diabetes Code(s): E11.9 - Type 2 diabetes mellitus without complications Status: Chronic Current Visit: Yes (4) Hypertension Code(s): I10 - Essential (primary) hypertension Status: Acute Current Visit : Yes - Review/Management Plan: Possible recurrent TIA surprisingly on Pradaxa full-strength LDL 40s. Carotid ultrasound negative for any significant stenosis CT brain no acute lesion Recommendation MRI MRA brain and carotids Continue Pradaxa May require cardiology evaluation for SYDNI Behavioral modification and risk factor reduction. Weight loss, blood pressure control, blood sugar control, lipid control. Exercise (2) Transient cerebral ischemia Qualifiers: Transient cerebral ischemia type: unspecified Qualified Code(s): G45.9 - Transient cerebral ischemic attack, unspecified
[2018-08-04 08:05] LABS: Chol/HDL Ratio 3.41 Ratio; HDL Cholesterol 35.4 mg/dL (40.0-60.0)
--- NOTE | 2018-08-04 08:10 | US ---
EXAM DATE: 08/04/2018 8:02 AM EST AGE/SEX: 63 years / Female INDICATIONS: Transient ischemic attack. CLINICAL DATA: This is the patient's subsequent encounter. Patient reports that signs and symptoms h ave been present for 1 day and indicates a pain score of 0/10. MEDICAL/SURGICAL HISTORY: . Cardiovascular disease. Diabetes mellitus type II. Hypertension. . Hysterectomy. COMPARISON: [facility], MRA CAROTIDS W CONTRAST, 01/15/2016. . VELOCITY PARAMETERS: ICA/CCA Ratio: Right 1.0 , Left 1.2 ICA: Right 69 cm/sec, Left 104 cm/sec CCA: Right 67 cm/sec, Left 86 cm/sec ECA: Right 233 cm/sec, Left 158 cm/sec Vertebral: Right 64 cm/sec antegrade, Left 91 cm/sec antegrade FINDINGS: Right Carotid: Minimal plaque. Elevated velocities in the external carotid artery.The waveforms are within normal limits. Left Carotid: No significant plaque is visualized. The waveforms are within normal limits. Other: None. CONCLUSION: 1. Right Internal Carotid Artery: Findings indicate <50% stenosis. Moderate external carotid artery stenosis. 2. Left Internal Carotid Artery: Findings indicate <50% stenosis. Electronically signed by: Floyd Reynoso MD 08/04/2018 8:08 AM EST
[2018-08-04] MEDS: Levothyroxine 75 MCG Tablet PO SCH (09:08)
[2018-08-04] MEDS: Levothyroxine 100 MCG Tablet PO SCH (09:08)
[2018-08-04] MEDS: Insulin Detemir Inj 1,000 UNIT/10 ML Vial SQ SCH ×2 (09:26→21:43)
[2018-08-04] MEDS: Torsemide 20 MG Tablet PO SCH (12:42)
--- NOTE | 2018-08-04 12:50 | MR ---
EXAM DATE: 08/04/2018 12:43 PM EST AGE/SEX: 63 years / Female INDICATIONS: TIA. Right sided numbness. CLINICAL DATA: This is the patient's initial encounter. Patient reports that signs and symptoms have been present for 1 day and indicates a pain score of 0/10. MEDICAL/SURGICAL HISTORY: Diabetes mellitus type II. Hypertension. CABG. Tonsillectomy. Hyst erectomy. COMPARISON: [facility], MRI BRAIN W/O CONTRAST, 01/07/2016. . TECHNIQUE: Multiplanar, multisequence examination of the brain was performed without contrast. FINDINGS: Cerebrum: The ventricles are normal for age. No evidence of midline shift, mass lesion, hemorrhage or acute infarction. No extraaxial fluid collections are seen. The pituitary gland and suprasellar cistern are normal in configuration. White Matter: No significant signal abnormalities are seen in the white matter. Posterior Fossa: The cerebellum and brainstem are intact. The 4th ventricle is midline. The cerebel lopontine angle is unremarkable. The cerebellar tonsils are normal in position. Diffusion Imaging: No focal areas of restricted diffusion are seen. No evidence of acute infarction . Extracranial: The visualized portions of the orbits and paranasal sinuses are unremarkable. CONCLUSION: 1. Stable negative exam. Electronically signed by: Axel Martínez MD 08/04/2018 12:49 PM EST
--- NOTE | 2018-08-04 13:05 | MR ---
EXAM DATE: 08/04/2018 12:42 PM EST AGE/SEX: 63 years / Female INDICATIONS: TIA. Right sided numbness. CLINICAL DATA: This is the patient's initial encounter. Patient reports that signs and symptoms have been present for 1 day and indicates a pain score of 0/10. MEDICAL/SURGICAL HISTORY: Hypertension. Diabetes mellitus type II. Hypothyroidism. CABG. Hys terectomy. Tonsillectomy. COMPARISON: [facility] [place], [place] HEAD W/O CONTRAST, 08/04/2018. . TECHNIQUE: 3D [id number] MRA was performed. Source images, multiplanar STS MIP, and 3D volum e MIP reconstructions were reviewed. FINDINGS: There is excellent visualization of the major intracranial arteries out to the second-order branch ve ssels. There is no evidence for aneurysm, vessel truncation or stenosis, and no evidence for vascula r malformation. CONCLUSION: 1. Negative exam. Electronically signed by: Axel Martínez MD 08/04/2018 1:03 PM EST
--- NOTE | 2018-08-04 13:36 | MR ---
EXAM DATE: 08/04/2018 12:44 PM EST AGE/SEX: 63 years / Female INDICATIONS: TIA. Right sided numbness. CLINICAL DATA: This is the patient's initial encounter. Patient reports that signs and symptoms have been present for 1 day and indicates a pain score of 0/10. MEDICAL/SURGICAL HISTORY: Diabetes mellitus type II. Hypertension. CABG. Hysterectomy. Tonsi llectomy. COMPARISON: [facility], MRA CAROTIDS W CONTRAST, 01/15/2016. . TECHNIQUE: 10 ml Gadavist (gadobutrol) contrast infused MRA (single exam dose) of the extracranial circulation was performed using a neurovascular coil. Postprocessing was performed, including rotati ng sub-volume maximum intensity projections of each carotid artery, rotating full-volume maximum inte nsity projections of both carotid arteries, sagittal and coronal sliding thin-slab reformations of ea ch carotid artery, and left oblique sliding thin-slab reformation through the aortic arch to include the origin of the arch branch vessels. FINDINGS: Aortic Arch : There is a bovine branching pattern of the great vessels from the aorta. No evidence of ostial narrowing. Right Carotid : The common carotid artery is intact. The carotid bulb has a normal configuration wi thout ulceration or narrowing. The internal carotid artery lumen is smooth without stenosis. The ex ternal carotid artery is intact. Left Carotid : The common carotid artery is intact. The carotid bulb has a normal configuration wit hout ulceration or narrowing. The internal carotid artery lumen is smooth without stenosis. The ext ernal carotid artery is intact. Vertebrals : The vertebral arteries have a symmetric diameter. No stenotic lesions are seen. CONCLUSION: 1. Negative study with no significant stenosis. Percent stenosis is calculated using the diameter of the stenotic region over the diameter of the nor mal distal internal carotid artery Electronically signed by: Axel Martínez MD 08/04/2018 1:34 PM EST
[2018-08-04] MEDS ORDERED: Gadobutrol PF 10 MMOL/10 ML Vial (for RAD) IV.SIG ONE (14:36)
--- NOTE | 2018-08-04 15:56 | ECHRPT ---
Indication: cva/tia CONCLUSIONS Normal left ventricular size. Wall thickness is normal. The left ventricular systolic function is normal with an estimated ejection fraction in the range of 55-60%. The left atrial size is kzdh-yh-aukevfhmaw dilated. Mitral annular calcification is present. Mild thickening of the aortic valve leaflets. Calcification of the non-coronary cusp. The estimated pulmonary arterial pressure is 40 mmHg. There is mild tricuspid valve regurgitation. BP: / HR: Rhythm: MEASUREMENTS (Male / Female) Normal Values Technical Quality: 2D ECHO LV Diastolic Diameter PLAX 4.8 cm 4.2 - 5.9 / 3.9 - 5.3 cm LV Systolic Diameter PLAX 3.3 cm IVS Diastolic Thickness 1.2 cm 0.6 - 1.0 / 0.6 - 0.9 cm LVPW Diastolic Thickness 1.2 cm 0.6 - 1.0 / 0.6 - 0.9 cm LV Relative Wall Thickness 0.5 RV Internal Dim ED PLAX 3.1 cm LVOT Diameter 1.9 cm Aortic Root Diameter 2.7 cm LA Systolic Diameter LX 4.7 cm 3.0 - 4.0 / 2.7 - 3.8 cm LV Ejection Fraction MOD BP 58.8 % >= 55 % LV Ejection Fraction MOD 4C 59.8 % LV Ejection Fraction 4C AL 61.4 % LV Ejection Fraction MOD 2C 58.4 % LV Ejection Fraction 2C AL 60.3 % M-MODE Aortic Root Diameter MM 2.6 cm LA Systolic Diameter MM 3.4 cm LA Ao Ratio MM 1.3 AV Cusp Separation MM 2.0 cm DOPPLER AV Peak Velocity 128.5 cm/s AV Peak Gradient 6.6 mmHg AI Peak Velocity 223.0 cm/s AI Peak Gradient 19.9 mmHg AI Pressure Half Time 249.0 ms LVOT Peak Velocity 98.7 cm/s LVOT Peak Gradient 3.9 mmHg AV Area Cont Eq pk 2.2 cm Mitral E Point Velocity 124.0 cm/s Mitral A Point Velocity 77.3 cm/s Mitral E to A Ratio 1.6 LV E' Lateral Velocity 5.0 cm/s Mitral E to LV E' Lateral Ratio 24.9 LV E' Septal Velocity 6.7 cm/s Mitral E to LV E' Septal Ratio 18.4 TR Peak Velocity 274.0 cm/s TR Peak Gradient 30.0 mmHg Right Atrial Pressure 10.0 mmHg Pulmonary Artery Systolic Pressu 40.0 mmHg Right Ventricular Systolic Press 40.0 mmHg FINDINGS LEFT VENTRICLE Normal left ventricular size. Wall thickness is normal. The left ventricular systolic function is normal with an estimated ejection fraction in the range of 55-60%. RIGHT VENTRICLE Normal right ventricular size and systolic function. LEFT ATRIUM The left atrial size is glhb-ew-chimgnfomj dilated. RIGHT ATRIUM The right atrial size is normal. AORTA The aortic root and proximal ascending aorta are normal in size on limited imaging. MITRAL VALVE Mitral annular calcification is present. AORTIC VALVE Mild thickening of the aortic valve leaflets. Calcification of the non-coronary cusp. TRICUSPID VALVE The estimated pulmonary arterial pressure is 40 mmHg. There is mild tricuspid valve regurgitation. PULMONARY VALVE No pulmonary valve regurgitation or stenosis. VESSELS The inferior vena cava is normal in size. PERICARDIUM No pericardial effusion. Ravi Mcdaniels MD (Electronically Signed) Final Date:04 August 2018 15:56
[2018-08-04 15:58] LABS: Hemoglobin A1c 8.3 % (4.3-6.0)
--- NOTE | 2018-08-05 06:56 | P.PNNEU ---
Subjective Subjective Comments: No cp, no dyspnea, no royal, no focal weakness, no vision loss Active Medications: Active Medications Acetaminophen (Tylenol) 650 mg PO Q4H PRN PRN Reason: fever or ROYAL Last Admin: 08/04/18 00:01 Dose: 650 mg Aspirin (Aspirin Chew) 81 mg PO DAILY [facility] Last Admin: 08/04/18 09:08 Dose: 81 mg Dabigatran (Pradaxa) 150 mg PO BID [facility] Last Admin: 08/04/18 21:37 Dose: 150 mg Dextrose (D50w Vial) 50 ml IV.PUSH UNSCH PRN PRN Reason: per Hypoglycemic Protocol Glucagon (Glucagon Inj) 1 mg OTHER UNSCH PRN PRN Reason: per Hypoglycemic Protocol Ceftriaxone Sodium 1,000 mg/ (Sodium Chloride) 100 mls @ 200 mls/hr IV.SIG Q24H [facility] Last Infusion: 08/04/18 18:19 Dose: Infused Insulin Aspart (Novolog Insulin Correctional Sugar Inj) 0 unit SQ ACHS PRN; Protocol PRN Reason: Per Protocol Insulin Detemir (Levemir Inj) 15 unit SQ BID [facility] Last Admin: 08/04/18 21:43 Dose: 15 unit Levothyroxine Sodium (Synthroid) 100 mcg PO DAILY@0700 [facility] Last Admin: 08/04/18 09:08 Dose: 100 mcg Levothyroxine Sodium (Synthroid) 75 mcg PO DAILY@0700 [facility] Last Admin: 08/04/18 09:08 Dose: 75 mcg Losartan Potassium (Cozaar) 100 mg PO DAILY [facility] Last Admin: 08/04/18 11:11 Dose: 100 mg Sodium Chloride (Ns Flush) 2 ml IV.FLUSH PRN PRN PRN Reason: FLUSH AFTER USING IV ACCESS Torsemide (Demadex) 20 mg PO DAILY [facility] Last Admin: 08/04/18 12:42 Dose: 20 mg Allergies/Adverse Reactions: Allergies Allergy/AdvReac Type Severity Reaction Status Date / Time benzonatate Allergy Severe DIZZINESS Verified 08/03/18 18:31 AND VISUAL DISTURBANCE hydrocodone Allergy Intermediate DIAPHORESIS Verified 08/03/18 19:14 AND NAUSEA lisinopril Allergy Intermediate Edema, Verified 08/03/18 19:14 Localized watermelon Allergy Intermediate Anaphylaxis Verified 08/03/18 19:14 codeine AdvReac Intermediate Nausea/Vomi Verified 08/03/18 19:14 ting Review of Systems All other systems reviewed negative except as stated in HPI Physical Exam Vital signs: Vital Signs 08/04/18 08:00 08/04/18 16:00 08/04/18 19:40 Temperature 98.1 F Pulse Rate 71 53 L 63 Respiratory Rate 17 17 Blood Pressure 143/64 H 153/66 H Pulse Oximetry 98 98 08/04/18 19:52 08/04/18 20:00 08/05/18 03:35 Temperature 98.0 F 97.4 F L 98.4 F Pulse Rate 62 66 Respiratory Rate 17 17 Blood Pressure 161/65 H 140/63 Pulse Oximetry 99 95 Intake & Output 08/04/18 08/04/18 08/05/18 06:59 18:59 06:59 Intake Total 360 / 360 350 / 350 Balance 360 / 360 350 / 350 Weight 101 kg Intake: IV 100 / 100 Rocephin Inj 1,000 MG In NS Inj 100 / 100 100 ML @ 200 mls/hr IV.SIG Q24H [facility] Rx#:[id number] Oral 360 / 360 250 / 250 Other: Date of Last Bowel Movement 08/02/18 Weight On Admission 99.79 kg Narrative: GENERAL: in NAD, SKIN: Warm and dry. HEAD: Atraumatic. Normocephalic. EYES: Pupils equal and round. No scleral icterus. ENT: No nasal bleeding or discharge. Mucous membranes pink and moist. NECK: Trachea midline. No JVD. CARDIOVASCULAR: Regular rate and rhythm. RESPIRATORY: No accessory muscle use. GASTROINTESTINAL: Abdomen soft, non-tender, nondistended. MUSCULOSKELETAL: Extremities without clubbing, cyanosis, or edema. No obvious deformities. NEUROLOGICAL: Awake and alert. No aphasia, fluent articulate, oriented x3 visual [place] full no facial asymmetry moving all 4 extremity gravity reflex symmetric plantarflexion no clonus gait not assessed secondary fall risk PSYCHIATRIC: Appropriate mood and affect; insight and judgment normal. - Constitutional no acute distress - Routine HEENT Exam Head: Present: normocephalic Eye: Present: EOMI Objective Laboratory Results - last 24 hr 08/04/18 08/04/18 08/04/18 06:35 06:35 09:11 POC Glucose 166 H Hemoglobin A1c 8.3 H Triglycerides 217 H Cholesterol 121 LDL Cholesterol, Calc 42 HDL Cholesterol 35.4 L Cholesterol/HDL Ratio 3.41 11/03/1608/04/18 08/04/18 12:41 18:13 21:29 POC Glucose 187 H 177 H 210 H Hemoglobin A1c Triglycerides Cholesterol LDL Cholesterol, Calc HDL Cholesterol Cholesterol/HDL Ratio Microbiology 08/03/18 19:50 Urine Culture - Preliminary Clean Catch Urine Immature growth - reincubate Review/Management - Diagnosis (1) Atrial fibrillation Code(s): I48.91 - Unspecified atrial fibrillation Status: Acute Current Visit: Yes (2) Transient cerebral ischemia Code(s): G45.9 - Transient cerebral ischemic attack, unspecified Status: Acute Current Visit: Yes (3) Diabetes Code(s): E11.9 - Type 2 diabetes mellitus without complications Status: Chronic Current Visit: Yes (4) Hypertension Code(s): I10 - Essential (primary) hypertension Status: Acute Current Visit : Yes - Review/Management Plan: Possible recurrent TIA surprisingly on Pradaxa full-strength LDL 40s. Carotid ultrasound negative for any significant stenosis CT brain no acute lesion Recommendation MRI MRA brain and carotids; negative for acute lesion Continue Pradaxa May require cardiology evaluation for SYDNI HbA1c 8.3; needs better control Discharge planning after seen by cardiology Behavioral modification and risk factor reduction. Weight loss, blood pressure control, blood sugar control, lipid control. Exercise (2) Transient cerebral ischemia Qualifiers: Transient cerebral ischemia type: unspecified Qualified Code(s): G45.9 - Transient cerebral ischemic attack, unspecified
[2018-08-05] MEDS: Levothyroxine 75 MCG Tablet PO SCH (07:54)
[2018-08-05] MEDS: Levothyroxine 100 MCG Tablet PO SCH (07:54)
[2018-08-05 08:02] VITALS: RESP 16; O2SAT 94
[2018-08-05] MEDS: Insulin Detemir Inj 1,000 UNIT/10 ML Vial SQ SCH (08:45)
[2018-08-05] MEDS: Torsemide 20 MG Tablet PO SCH (08:46)
[2018-08-05] MEDS: Acetaminophen 325 MG Tablet PO PRN (08:47)
--- NOTE | 2018-08-05 10:04 | P.CONCA ---
History of Present Illness Service: Cardiology Consult date: 08/05/18 Requesting Physician: Bryon Benito Reason for Consult: SYDNI/TIA Primary Care Provider: UNKNOWN Chief Complaint: TIA History of Present Illness: Pleasant 63-year-old female well-known to our practice with significant cardiac history of coronary artery disease with CABG x3 in 2010, atrial fibrillation, TIAs, congestive heart failure, pneumonia, hypertension, hypothyroidism, hyperlipidemia, and diabetes. Patient was initially scheduled for heart catheterization this week due to chest tightness and shortness of breath on exertion, however patient called office yesterday reported numbness and tingling on right side and was advised to go to the ER for evaluation. She reports her symptoms first presented while eating dinner and ate catfish on Friday evening she noticed the right side of her face felt numb and symptoms radiated to the right arm and right leg. Patient reports she had not missed any doses of her Pradaxa or aspirin. Symptoms resolved shortly after arriving to the hospital. She admits to continuing to have chest tightness and shortness of breath with minimal exertion, experienced at this a.m. when ambulating to the restroom. Her Pradaxa and aspirin have been resumed, transesophageal echocardiogram discussed in detail with patient. Review of Systems All other systems reviewed negative except as stated in HPI Cardiovascular: Reports chest pain with activity, Reports shortness of breath with activity Respiratory: Reports shortness of breath with activity Musculoskeletal: Reports numbness, Reports tingling Neurologic: Reports numbness PMFSH - History History Provided By: Patient - Medical History Medical History: Medical History (Last Reviewed 08/05/18 @ 06:57 by Lorena Vaca) Anxiety Atrial fibrillation CAD (coronary artery disease) Diabetes 1.5, managed as type 1 H/O: hysterectomy Hypertension Hypothyroid - Surgical History Surgical History: Surgical History (Last Reviewed 08/05/18 @ 06:57 by Loerna Vaca) H/O discectomy Hx of tonsillectomy S/P triple vessel bypass - Family History Family History: Family History (Last Reviewed 08/05/18 @ 06:57 by Lorena Vaca) Mother Colon cancer - Tobacco History Second Hand Smoke Exposure: Yes Smoking Status: Never smoker - Alcohol History How Often Do You Have a Drink Containing Alcohol: Never - Substance Use History Substance History: No History of Abuse - Travel History Recent Travel in the [place] Within the Last 8 Weeks: No Recent Travel Out of the Country Within the Last 8 Weeks: No - Immunization History Tetanus Immunization: <5 Years Medications and Allergies Active Medications: Active Medications Acetaminophen (Tylenol) 650 mg PO Q4H PRN PRN Reason: fever or ROYAL Last Admin: 08/05/18 08:47 Dose: 650 mg Aspirin (Aspirin Chew) 81 mg PO DAILY [facility] Last Admin: 08/05/18 08:46 Dose: 81 mg Dabigatran (Pradaxa) 150 mg PO BID [facility] Last Admin: 08/05/18 08:46 Dose: 150 mg Dextrose (D50w Vial) 50 ml IV.PUSH UNSCH PRN PRN Reason: per Hypoglycemic Protocol Glucagon (Glucagon Inj) 1 mg OTHER UNSCH PRN PRN Reason: per Hypoglycemic Protocol Ceftriaxone Sodium 1,000 mg/ (Sodium Chloride) 100 mls @ 200 mls/hr IV.SIG Q24H [facility] Last Infusion: 08/04/18 18:19 Dose: Infused Insulin Aspart (Novolog Insulin Correctional Sugar Inj) 0 unit SQ ACHS PRN; Protocol PRN Reason: Per Protocol Insulin Detemir (Levemir Inj) 15 unit SQ BID [facility] Last Admin: 08/05/18 08:45 Dose: 15 unit Levothyroxine Sodium (Synthroid) 100 mcg PO DAILY@0700 [facility] Last Admin: 08/05/18 07:54 Dose: 100 mcg Levothyroxine Sodium (Synthroid) 75 mcg PO DAILY@0700 [facility] Last Admin: 08/05/18 07:54 Dose: 75 mcg Losartan Potassium (Cozaar) 100 mg PO DAILY [facility] Last Admin: 08/05/18 08:46 Dose: 100 mg Sodium Chloride (Ns Flush) 2 ml IV.FLUSH PRN PRN PRN Reason: FLUSH AFTER USING IV ACCESS Torsemide (Demadex) 20 mg PO DAILY [facility] Last Admin: 08/05/18 08:46 Dose: 20 mg Allergies Allergy/AdvReac Type Severity Reaction Status Date / Time benzonatate Allergy Severe DIZZINESS Verified 08/03/18 18:31 AND VISUAL DISTURBANCE hydrocodone Allergy Intermediate DIAPHORESIS Verified 08/03/18 19:14 AND NAUSEA lisinopril Allergy Intermediate Edema, Verified 08/03/18 19:14 Localized watermelon Allergy Intermediate Anaphylaxis Verified 08/03/18 19:14 banana Allergy Anaphylaxis Verified 08/05/18 10:14 melon Allergy Anaphylaxis Verified 08/05/18 10:14 milk Allergy Anaphylaxis Verified 08/05/18 10:13 codeine AdvReac Intermediate Nausea/Vomi Verified 08/03/18 19:14 ting Home Medications Medication Instructions Recorded Confirmed Type aspirin 81 mg PO DAILY 05/23/18 08/03/18 History dabigatran etexilate [Pradaxa] 150 mg PO BID 05/23/18 08/03/18 History insulin glargine [Lantus Solostar 36 unit SUB-Q BID 05/23/18 08/03/18 History U-100 Insulin] levothyroxine 175 mcg PO DAILY 05/23/18 08/03/18 History alprazolam [Xanax] 0.5 mg PO HS 08/03/18 08/03/18 History isosorbide mononitrate 30 mg PO DAILY 08/03/18 08/03/18 History losartan [Cozaar] 100 mg PO DAILY 08/03/18 08/03/18 History torsemide 20 mg PO DAILY 08/03/18 08/03/18 History rosuvastatin [Crestor] 20 mg PO HS 08/05/18 08/05/18 History Exam Vital signs: Vital Signs 08/04/18 16:00 08/04/18 19:40 08/04/18 19:52 Temperature 98.1 F 98.0 F Pulse Rate 53 L 63 Respiratory Rate 17 17 Blood Pressure 143/64 H 153/66 H Pulse Oximetry 98 98 08/04/18 20:00 08/04/18 21:20 08/05/18 03:35 Temperature 97.4 F L 98.4 F Pulse Rate 62 67 66 Respiratory Rate 17 17 Blood Pressure 161/65 H 140/63 Pulse Oximetry 99 95 08/05/18 07:58 08/05/18 08:00 Temperature 97.9 F Pulse Rate 54 L 54 L Respiratory Rate 16 Blood Pressure 159/62 H Pulse Oximetry 94 L Intake & Output 08/04/18 08/05/18 08/05/18 18:59 06:59 18:59 Intake Total 350 / 350 Balance 350 / 350 Intake: IV 100 / 100 Rocephin Inj 1,000 MG In NS Inj 100 / 100 100 ML @ 200 mls/hr IV.SIG Q24H [facility] Rx#:[id number] Oral 250 / 250 Other: # Voids 2 Date of Last Bowel Movement 08/02/18 - Constitutional no acute distress, obese - Routine HEENT Exam Head: Present: normocephalic, atraumatic Eye: Present: EOMI, PERRL, normal accommodation ENT: Present: mucous membranes moist - Routine Respiratory Exam Present: CTA bilaterally - Routine Cardiovascular Exam Present: RRR - Routine Abdominal Exam Present: soft - Routine Skin Exam Present: intact - Routine Neurological Exam Present: alert, oriented X3 Results 08/03/18 18:49 08/03/18 18:50 Cardiac Enzymes 08/03/18 Range/Units 18:50 AST 7 L (15-37) U/L Troponin I Less than 0.02 L (0.02-0.05) ng/mL Coagulation 08/03/18 Range/Units 18:49 PT 11.3 (9.8-11.6) sec APTT 37.7 H (23.4-31.7) sec Lipids 08/04/18 Range/Units 06:35 Triglycerides 217 H (42-150) mg/dL Cholesterol 121 (120-200) mg/dL HDL Cholesterol 35.4 L (40.0-60.0) mg/dL Cholesterol/HDL Ratio 3.41 Ratio CBC 08/03/18 Range/Units 18:49 WBC 9.9 (4.0-11.0) th/mm3 RBC 4.41 (4.00-5.30) mil/mm3 Hgb 11.9 (11.6-15.3) gm/dL Hct 35.8 (35.0-46.0) % Plt Count 218 (150-450) th/mm3 Neut # (Auto) 6.6 (1.8-7.7) th/mm3 Lymph # (Auto) 2.5 (1.0-4.8) th/mm3 Perkins # (Auto) 0.5 (0.0-0.9) th/mm3 Eos # (Auto) 0.2 (0.0-0.4) th/mm3 Baso # (Auto) 0.1 (0.0-0.2) th/mm3 Comprehensive Metabolic Panel 08/03/18 Range/Units 18:50 Sodium 139 (136-145) meq/L Potassium 3.7 (3.5-5.1) meq/L Chloride 103 (98-107) meq/L Carbon Dioxide 29.3 (21.0-32.0) meq/L BUN 24 H (7-18) mg/dL Creatinine 1.10 H (0.50-1.00) mg/dL Calcium 9.0 (8.5-10.1) mg/dL AST 7 L (15-37) U/L ALT 22 (10-53) U/L Alkaline Phosphatase 97 (45-117) U/L Total Protein 6.8 (6.4-8.2) g/dL Albumin 3.3 L (3.4-5.0) g/dL Intake and Output 08/04/18 08/05/18 08/05/18 22:59 06:59 14:59 Intake Total 350 / 350 Balance 350 / 350 Intake: IV 100 / 100 Rocephin Inj 1,000 MG In NS Inj 100 / 100 100 ML @ 200 mls/hr IV.SIG Q24H [facility] Rx#:[id number] Oral 250 / 250 Other: # Voids 2 Date of Last Bowel Movement 08/02/18 - Imaging and Cardiology Imaging: Impressions Chest X-Ray 08/03/18 17:23 CONCLUSION: Mild cardiomegaly. No evidence of acute cardiopulmonary process. Status post median sternotomy. Head CT 08/03/18 17:23 CONCLUSION: 1. No acute intracranial abnormality. . Carotid Doppler Study 08/04/18 00:00 CONCLUSION: 1. Right Internal Carotid Artery: Findings indicate <50% stenosis. Moderate external carotid artery stenosis. 2. Left Internal Carotid Artery: Findings indicate <50% stenosis. Head MRI 08/04/18 00:00 CONCLUSION: 1. Stable negative exam. Head MRA 08/04/18 09:03 CONCLUSION: 1. Negative exam. Neck MRA 08/04/18 09:03 CONCLUSION: 1. Negative study with no significant stenosis. Percent stenosis is calculated using the diameter of the stenotic region over the diameter of the normal distal internal carotid artery Assessment and Plan - Plan Assessment TIA Coronary artery disease Shortness of breath Congestive heart failure Atrial fibrillation Hypertension Hyperlipidemia Plan -Questionable recurrent TIA, evaluated by Dr. Mireles, continues on Pradaxa and aspirin. SYDNI recommended in the past, patient refused. SYDNI discussed in detail with patient, she is now agreeing to proceed with procedure and would like to have it arranged outpatient. -History of CABG x3, continues to experience chest discomfort and shortness of breath associated with exertion, had negative nuclear stress test 06/2018, patient was scheduled for heart catheterization this week due to her continued symptoms, however that has been postponed pending workup for possible TIA. Continues on ASA, BB and will resume home statin (crestor) and isosorbide. Will plan to discharge home for outpatient workup per patient request. Advised to return to ER if symptoms return. -Hospitalized April 2018 with pneumonia and congestive heart failure, echocardiogram was completed April 2018 which did show a ejection fraction 60- 65% -History of A. fib in 2016 continues on Pradaxa and baby aspirin, telemetry reveals sinus rhythm. -Allergic to KRZYSZTOF inhibitors intolerant to amlodipine. Will resume home BB. Patient was seen and evaluated by Dr. Knight who participated in care management and decision making. Code Status: Full code Discussed Condition With: CHEKO
[2018-08-05] MEDS ORDERED: Metoprolol Tartrate 25 MG Tablet PO SCH (11:00)
[2018-08-05 11:32] VITALS: BP 139/48; PULSE 56; TEMP 98.7
--- NOTE | 2018-08-05 11:33 | P.DS ---
Date of admission: 08/03/18 21:41 Primary care physician: UNKNOWN Brief History from admission: 63-year-old female with a history of atrial fibrillation, diabetes mellitus, coronary artery disease status post CABG who presents with episode of right sided facial numbness, right arm numbness which has been occurring on and off since yesterday. Patient says it is currently resolved, however still has a little tingling in the right hand. Patient says she is otherwise feeling all right except for having some increased shortness of breath which is stable over the past 2 months. She is scheduled to get a heart catheterization by Dr. Knight in the coming week. DS: Summary - Time Spent with Patient Total time spent providing and/or coordinating discharge services: - Quality: VTE Deep Vein Thrombosis/Pulmonary Embolism Present on Admission: No Exam Vital signs: Vital Signs 08/04/18 16:00 08/04/18 19:40 08/04/18 19:52 Temperature 98.1 F 98.0 F Pulse Rate 53 L 63 Respiratory Rate 17 17 Blood Pressure 143/64 H 153/66 H Pulse Oximetry 98 98 08/04/18 20:00 08/04/18 21:20 08/05/18 03:35 Temperature 97.4 F L 98.4 F Pulse Rate 62 67 66 Respiratory Rate 17 17 Blood Pressure 161/65 H 140/63 Pulse Oximetry 99 95 08/05/18 07:58 08/05/18 08:00 08/05/18 11:30 Temperature 97.9 F 98.7 F Pulse Rate 54 L 54 L 56 L Respiratory Rate 16 16 Blood Pressure 159/62 H 139/48 L Pulse Oximetry 94 L 94 L Intake & Output 08/04/18 08/05/18 08/05/18 18:59 06:59 18:59 Intake Total 350 / 350 Balance 350 / 350 Intake: IV 100 / 100 Rocephin Inj 1,000 MG In NS Inj 100 / 100 100 ML @ 200 mls/hr IV.SIG Q24H [facility] Rx#:[id number] Oral 250 / 250 Other: # Voids 2 Date of Last Bowel Movement 08/02/18 Results Labs on day of discharge: Labs from last 24 hours 08/05/18 08/04/18 08/04/18 08:24 21:29 18:13 POC Glucose 143 H 210 H 177 H Hemoglobin A1c 08/04/18 08/04/18 12:41 06:35 POC Glucose 187 H Hemoglobin A1c 8.3 H - Impressions ITS Impressions Chest X-Ray 08/03/18 17:23 CONCLUSION: Mild cardiomegaly. No evidence of acute cardiopulmonary process. Status post median sternotomy. Head CT 08/03/18 17:23 CONCLUSION: 1. No acute intracranial abnormality. . Carotid Doppler Study 08/04/18 00:00 CONCLUSION: 1. Right Internal Carotid Artery: Findings indicate <50% stenosis. Moderate external carotid artery stenosis. 2. Left Internal Carotid Artery: Findings indicate <50% stenosis. Head MRI 08/04/18 00:00 CONCLUSION: 1. Stable negative exam. Head MRA 08/04/18 09:03 CONCLUSION: 1. Negative exam. Neck MRA 08/04/18 09:03 CONCLUSION: 1. Negative study with no significant stenosis. Percent stenosis is calculated using the diameter of the stenotic region over the diameter of the normal distal internal carotid artery Discharge Plan - Physicians Team Primary Care Provider: UNKNOWN, Attending Provider: Tabitha Barker Other Providers: Broyn Benito MD ; Aleksandr Knight MD
--- NOTE | 2018-08-05 13:24 | P.PNIM ---
Subjective Interval history: Patient reports she is feeling well today. No new neurological symptoms. Physical Exam Vital signs: Vital Signs 08/04/18 16:00 08/04/18 19:40 08/04/18 19:52 Temperature 98.1 F 98.0 F Pulse Rate 53 L 63 Respiratory Rate 17 17 Blood Pressure 143/64 H 153/66 H Pulse Oximetry 98 98 08/04/18 20:00 08/04/18 21:20 08/05/18 03:35 Temperature 97.4 F L 98.4 F Pulse Rate 62 67 66 Respiratory Rate 17 17 Blood Pressure 161/65 H 140/63 Pulse Oximetry 99 95 08/05/18 07:58 08/05/18 08:00 08/05/18 11:30 Temperature 97.9 F 98.7 F Pulse Rate 54 L 54 L 56 L Respiratory Rate 16 16 Blood Pressure 159/62 H 139/48 L Pulse Oximetry 94 L 94 L Intake & Output 08/04/18 08/05/18 08/05/18 18:59 06:59 18:59 Intake Total 350 / 350 Balance 350 / 350 Intake: IV 100 / 100 Rocephin Inj 1,000 MG In NS Inj 100 / 100 100 ML @ 200 mls/hr IV.SIG Q24H TAAWNDA Rx#:[id number] Oral 250 / 250 Other: # Voids 2 Date of Last Bowel Movement 08/02/18 Narrative: GENERAL: This is a well-nourished, well-developed patient, in no apparent distress. CARDIOVASCULAR: Normal rate and regular rhythm without murmurs, gallops, or rubs. RESPIRATORY: Good respiratory efforts. Breath sounds equal and clear to auscultation bilaterally. GASTROINTESTINAL: Abdomen soft, non-tender, non-distended. Normal active bowel sounds MUSCULOSKELETAL: Extremities without cyanosis, or edema. NEURO: Alert & Oriented x4 to person, place, time, situation. Moves all ext x4 PSYCH: Appropriate mood and affect. Results - Labs CBC & Chem 7: 08/03/18 18:49 08/03/18 18:50 Laboratory Results - last 24 hr 08/04/18 08/04/18 08/04/18 06:35 18:13 21:29 POC Glucose 177 H 210 H Hemoglobin A1c 8.3 H 08/05/18 08/05/18 08:24 11:41 POC Glucose 143 H 163 H Hemoglobin A1c Microbiology 08/03/18 19:50 Clean Catch Urine Urine Culture - Final 50-100,000 cfu/mL mixed gram positive reginaldo (probable contaminants) - Imaging Impressions Neck MRA 08/04/18 09:03 CONCLUSION: 1. Negative study with no significant stenosis. Percent stenosis is calculated using the diameter of the stenotic region over the diameter of the normal distal internal carotid artery Assessment and Plan - Plan 63-year-old female with: Possible recurrent TIA, while on Pradaxa - MRI, MRA of the brain and carotids all negative for acute findings. - Appreciate neurology input. Continue Pradaxa and risk factor modifications. -Patient evaluated by cardiology for SYDNI. The patient requested to have this test outpatient instead. Atrial fibrillation: - Rate controlled. Continue Pradaxa and rate controlled medications. Diabetes: Not well controlled. A1c of 8.3. -Continue long-acting insulin and sliding scale with Accu-Cheks. Advised patient to work more closely with PCP for better control. Discussed diet and exercise. Discharge Planning: Discharge patient to home Condition on discharge: Improved Regular Diet as tolerated Ad Clementine activity Rx written:None Follow-up with primary care physician
--- NOTE | 2018-08-07 19:56 | HM ---
Date Performed: 08/04/2018 Time Performed: 09:35:00 HOOKUP DATE: 08/04/18 09:35:00 AM Tue ANALYSIS START TIME: 08/04/2018 9:40:00 AM ANALYSIS END TIME: 08/05/2018 9:43:59 AM PATIENT AGE: 63 PATIENT HEIGHT PATIENT WEIGHT DRUG LIST: ROOM F70 PATIENT DIAGNOSIS: RT SIDE NUMBNESS TEST NARRATIVE: The patient's average heart rate was 57 BPM. No episodes of tachycardia wer e noted. Heart rates less than 50 BPM were noted 8% of the time. 35 ventricular ectopics, which represented < 1% of the total beat count, were noted. The highest ventricular ectopic frequency occu rred from 09:00 PM to 10:00 PM Tue. During this time 6 VE(s) occurred. Ventricular ectopics were ob served as 34 isolated beat(s) only. No couplets or runs were noted. 338 supraventricular ectopic s, which represented 2% of the total beat count, were noted. The highest supraventricular ectopic fr equency occurred from 08:00 AM to 09:00 AM Wed. During this time 119 SVE(s) occurred. No episode s of ST depression (defined as -1.0 mm or more) were noted in channel 1. No episodes of ST depressio n (defined as -1.0 mm or more) were noted in channel 2. No episodes of ST depression (defined as -1. 0 mm or more) were noted in channel 3. NO DIARY ENTRIES WERE RECORDED BY PATIENT TEST INTERPRETATION: The underlying rhythm is Sinus rhythm with average rate 57 bpm and range of 34-76 bpm. No symptoms were noted and no significant pauses pr esent. Rare PVCs are seen. Occasional premature atrial contractions are seen with rare atrial couplet s and atrial triplets. Signed by : Cedrick Nieves
== END 2018-08-05 15:52 | disposition home or self-care (01) ==
LOC: NEDA 14:39 → NEPE 14:39 → NEPFCDU 22:26
PROVIDERS: ADMIT Family Medicine; ATTEND Family Medicine
DX: Z79.02 Long term (current) use of antithrombotics/antiplatelets; Z79.82 Long term (current) use of aspirin; N39.0 Urinary tract infection, site not specified; Z79.4 Long term (current) use of insulin; I65.29 Occlusion and stenosis of unspecified carotid artery; Z90.710 Acquired absence of both cervix and uterus; Z91.018 Allergy to other foods; I25.10 Atherosclerotic heart disease of native coronary artery without angina pectoris; E78.5 Hyperlipidemia, unspecified; I50.9 Heart failure, unspecified; I11.0 Hypertensive heart disease with heart failure; Z79.01 Long term (current) use of anticoagulants; J18.9 Pneumonia, unspecified organism; I48.91 Unspecified atrial fibrillation; E03.9 Hypothyroidism, unspecified; Z95.1 Presence of aortocoronary bypass graft; Z88.8 Allergy status to other drugs, medicaments and biological substances; Z86.73 Personal history of transient ischemic attack (TIA), and cerebral infarction without residual deficits; Z80.0 Family history of malignant neoplasm of digestive organs; E11.9 Type 2 diabetes mellitus without complications; F41.9 Anxiety disorder, unspecified